=== PATIENT | female | born 1945 | race Caucasian/White ===

== ENCOUNTER 2019-01-12 16:34 | Inpatient (IN) | payer MEDICARE, OTHER, SELFPAY | END 2019-01-16 15:50 | disposition short-term general hospital (02) | DRG 355 | PROVIDERS: Admitting Provider Surgery; PCP Internal Medicine; Visit Provider Surgery | DX: K43.0 Incisional hernia with obstruction, without gangrene (principal); I10 Essential (primary) hypertension; Z85.528 Personal history of other malignant neoplasm of kidney; Z90.5 Acquired absence of kidney; E66.01 Morbid (severe) obesity due to excess calories; M79.3 Panniculitis, unspecified | CPT/HCPCS: 36415; 74018; 80048; 80307; 85014; 85018; 85027; 88300; 88302; 88312; 97110; 97116; 97161; 97165; 97530; 97535; A9270; C1781; C9290; J0131; J0171; J1100; J1170; J1650; J1741; J2250; J2370; J2405; J2704; J2710; J3010; J7050; J7120 ==

== ENCOUNTER → 2019-10-03 10:09 | Outpatient (REF) | payer MEDICARE, OTHER, SELFPAY | LOC: ANHLAB 10:09 | PROVIDERS: PCP Internal Medicine; Visit Provider Nurse Practitioner | DX: C44.41 Basal cell carcinoma of skin of scalp and neck (principal) | CPT/HCPCS: 88305; 88331 ==

== ENCOUNTER 2020-11-20 14:28 | Outpatient (CLI) | payer MEDICARE, OTHER, SELFPAY ==
--- NOTE | ~2020-11-20 | CT_ITS ---
EXAMINATION: CT abdomen pelvis wo con EXAM DATE: 11/20/2020 14:51 INDICATION: Follow-up kidney stone on outside CT. History of kidney cancer. TECHNIQUE: Spiral CT of the abdomen and pelvis was performed without contrast. Axial, coronal and sag ittal images were reviewed. The dose-length product (DLP) for this examination was 628.16 mGy-cm. T he exposure was tailored according to patient size (auto mA exposure control), and iterative reconstr uction (ASIR) was used as additional dose reduction technique. Comparison is made to prior examinatio n from 02/27/2014. FINDINGS: Surgical changes from left-sided nephrectomy. There is a 3 mm stone at the right ureteroves icular junction. No hydronephrosis at present. No other right calyceal stones. The uterus is unremark able. The bladder is unremarkable. The liver, spleen, adrenal gland and pancreas are unremarkable. There are cholecystectomy clips. There is no retroperitoneal or pelvic lymphadenopathy. There is mild scattered arteriosclerotic disease. There is left lower quadrant abdominal wall hernia containing nonobstructed small portion of descendi ng colon. Probable identification of a normal appendix. No pericecal inflammation. There is moderate sigmoid colonic diverticulosis. There is no adjacent inflammatory change to suggest diverticulitis. The stomach and small bowel are unremarkable. There is expected amount of colonic stool. No free i ntraperitoneal gas. The heart is normal in size. There are no pericardial or pleural effusions. T he lung bases are unremarkable. There are no osteoblastic or osteolytic lesions identified. There is moderate lumbar levoscoliosis, moderate to severe thoracolumbar spondylosis. Large bridging endplate osteophytes. IMPRESSION: 1. Distal right ureteral 3 mm stone. No hydronephrosis at present. 2. Left nephrectomy. 3. Colonic diverticulosis. 4. Abdominal wall hernia containing nonobstructed descending colon Reviewed, dictated and finalized at location A.
== END 2020-11-20 14:29 | disposition home or self-care (01) ==
PROVIDERS: PCP Internal Medicine; Visit Provider Urology
DX: Z85.528 Personal history of other malignant neoplasm of kidney (principal); N20.1 Calculus of ureter; Z90.5 Acquired absence of kidney; K57.90 Diverticulosis of intestine, part unspecified, without perforation or abscess without bleeding; K46.9 Unspecified abdominal hernia without obstruction or gangrene
CPT/HCPCS: 74176

== ENCOUNTER → 2021-10-01 12:59 | Outpatient (REF) | payer MEDICARE, OTHER, SELFPAY | LOC: ANHLAB 12:59 | PROVIDERS: PCP Internal Medicine; Visit Provider Nurse Practitioner | DX: C44.519 Basal cell carcinoma of skin of other part of trunk (principal) | CPT/HCPCS: 88305 ==

== ENCOUNTER 2022-07-17 08:00 | Outpatient (NON) | payer MEDICARE, OTHER, SELFPAY | END 2022-07-17 08:01 | disposition home or self-care (01) | PROVIDERS: PCP Internal Medicine; Visit Provider Nurse Practitioner | DX: C44.41 Basal cell carcinoma of skin of scalp and neck (principal) | CPT/HCPCS: 88305 ==

== ENCOUNTER 2022-09-08 13:06 | Outpatient (NON) | payer MEDICARE, OTHER, SELFPAY | END 2022-09-08 13:07 | disposition home or self-care (01) | PROVIDERS: PCP Internal Medicine; Visit Provider Nurse Practitioner | DX: C44.41 Basal cell carcinoma of skin of scalp and neck (principal) | CPT/HCPCS: 88305; 88331 ==

== ENCOUNTER 2023-08-06 17:29 | Outpatient (NON) | payer MEDICARE, OTHER, SELFPAY | END 2023-08-06 17:30 | disposition home or self-care (01) | LOC: ANHLAB 17:30 | PROVIDERS: PCP Internal Medicine; Visit Provider Nurse Practitioner | DX: C44.319 Basal cell carcinoma of skin of other parts of face (principal) | CPT/HCPCS: 88305 ==

== ENCOUNTER 2025-06-22 09:08 | Inpatient (IN) | payer MEDICARE, OTHER, SELFPAY ==
--- OUTSIDE RECORDS SUMMARY | 2025-06-21 03:08 | XMS_ITS ---
Author Organization [facility] Address [address] [place] [id number] Care Team Providers Care Insecticide Expert Name Role Phone DR. DARRYN CHOWDARY Primary Care Provider Allergies Allergen (clinical drug ingredient) Drug/Non Drug Allergy documented on EMR Reaction Allergy Type Onset Date Status ciprofloxacin Ciprofloxacin Unknown Drug Allergy Active dextromethorphan Dextromethorphan Unknown Drug Allergy Active hydrochlorothiazide hydroCHLOROthiazide Unknown Drug Aller gy Active Penicillin Unknown Drug Allergy Active Substance with sulfonamide structure and antibacterial mechanism of action (substance) Sulfa Antibiotics Unknown Drug Allergy Active Tape Unknown Allergy Active triamterene Triamterene Unknown Drug Allergy Act diya REASON FOR VISIT CHART PREP Medications Medication SIG (Take, Route, Frequency, Duration) Notes Start Date End Date Status Vitamin E 268 MG (400 UNIT) Capsule one tablet Orally daily Acti ve Gabapentin 100 MG Capsule 1 capsule at b edtime Orally twice a day Active Escitalopram Oxalate 5 MG Tablet 1 tablet Orally Once a day Active Aspirin Adult Low Dose 81 MG Tablet Delayed Release 1 tablet Orally Once a day Active oxyCODONE HCl 5 MG Tablet 1 Tablet PO IA N FOR PAIN Orally every 8 hours 06/01/2025 Active Montelukast Sodium 10 MG Tablet 1 tablet Orally Once a day Active Nystatin 657400 UNIT/GM Cream 1 application Externally Twice a day Active Lidocaine 4 % Patch 1 patch as needed Externally every 12 hours Active dilTIAZem HCl ER 360 MG Tablet Extended Release 24 Hour 1 tablet Orally Once a day Active Senna 8.6 MG Tablet 1 tablet Orally Once a day Active Vitamin C 500 MG Tablet Chewable 1 tablet Orally Once a day Active Trelegy Ellipta 100-62.5-25 MCG/ACT Aerosol Powder Breath Activated 1 puff Inhalation Once a day Active Refresh Relieva 0.5-0.9 % Solution as directed Ophthalmic 3 times a day Active MiraLax 17 GM/SCOOP Powder as directed Orally Active Macular Vitamin Benefit - Tablet as directed Orally Active Vitamin D3 25 MCG (1000 UT) Tablet 1 tablet Orally Once a day Active Acidophilus Probiotic Blend - Capsule as directed Orally Active Acetaminophen 500 MG Capsule 1 capsule as needed Orally every 6 hrs Active Ipratropium-Albuterol 0.5-2.5 (3) MG/3ML Solution 3 mL Inhalation 4 times a day; Duration: 5 days 05/06/2025 Active Sore Throat 6-10 MG Lozenge 1 lozenge as needed Mouth/Throat every 2 hrs Active Voltaren Arthritis Pain 1 % Gel as directed Externally Activ e Multiple Vitamins - Tablet 1 tablet Oral ly Once a day Active Cefepime HCl 100 GM Solution Reconstituted as directed Intravenous Active B Complex 1 - Tablet as directed Orally Active oxyBUTYnin Chloride 5 MG Tablet 1 tablet Orally Once a day Active Vancomycin HCl 1000 MG Solution Reconstituted amt: 1 gram IV; intravenous Once A Day Intravenous Active Social History Tobacco Use: Social History Observation Description Date Details (start date - stop date) Former Smoker NA - NA Social History Tobacco Use: Social Info Question Answer Notes Tobacco Control (Standard) Tobacco use: Former smoker Encounters Encounter Location Date Provider Diagnosis [facility] [address] [place] [address] 06/21/2025 DARRYN CHOWDARY Plan Of Treatment Next Appt Details Provider Name:Chanda Esquivel , 06/27/2025 07:15:00 AM, [address] [place] [address], [id number], Progress Notes * Christiana JASON ADOB: 3 (79 yo F)Acc No.[id number]:06/21/2025 Patient: Iain JONATHANChristiana RIOJAS :1945 A ge:79 Y S ex:Female Address:[address] [place] [id number] Subjective: * Chief Complaints: * C LEIGH PREP * Medical History: Unspecified atrial fibrillation Chronic obstructive pulmonary disease, unspecified Atherosclerosis of [place] coronary artery of [place] heart without angina pectoris Cognitive communication deficit Need for assistance with personal care Muscle weakness (generalized) Essential (primary) hypertension Unspecified abnormalities of gait and mobility Unspecified macular degeneration Weakness Unspecified fall, subsequent encounter Panniculitis, unspecified Anxiety disorder, unspecified Vitamin deficiency, unspecified Depression, unspecified Pain, unspecified Overactive bladder Constipation, unspecified Rash and other nonspecific skin eruption Vitamin D deficiency, unspecified * Surgical History: ankle fracture 09/08/2024 discission, 2nd cataract replacement total knee 2020 colonoscopy flx dx w/collj spec when pfrmd 09/16/2013 colonoscopy flx dx w/collj spec when pfrmd 09/16/2013 colonoscopy nephrectomy panniculectomy exc skin malig hernia repair kidney surgery replacement total knee back surgery cholecystectomy tonsillectomy Surgical History verified. * Family History: M other: congestive heart failure, pneumonia, diagnosed with Hypertension. B rother: Alzheimer's dementia, chronic obstructive pulmonary disease, heart surgery. S ister: Alzheimer's dementia, chronic obstructive pulmonary disease. F ather: diagnosed with Hypertension, Stroke. F amily History Verified.. * Social History: T obacco Use: T obacco Control (Standard) T obacco use: F ormer smoker. Social History Verified. * Medications: T akingVancomycin HCl 1000 MG Solution Reconstituted amt: 1 gram IV; intravenous Once A Day Intravenous oxyBUTYnin Chloride 5 MG Tablet 1 tablet Orally Once a day Voltaren Arthritis Pain 1 % Gel as directed Externally Multiple Vitamins - Tablet 1 tablet Orally Once a day Cefepime HCl 100 GM Solution Reconstituted as directed Intravenous B Complex 1 - Tablet as directed Orally Acidophilus Probiotic Blend - Capsule as directed Orally Acetaminophen 500 MG Capsule 1 capsule as needed Orally every 6 hrs Ipratropium-Albuterol 0.5-2.5 (3) MG/3ML Solution 3 mL Inhalation 4 times a day Sore Throat 6-10 MG Lozenge 1 lozenge as needed Mouth/Throat every 2 hrs Vitamin D3 25 MCG (1000 UT) Tablet 1 tablet Orally Once a day Vitamin C 500 MG Tablet Chewable 1 tablet Orally Once a day Trelegy Ellipta 100-62.5-25 MCG/ACT Aerosol Powder Breath Activated 1 puff Inhalation Once a day Refresh Relieva 0.5-0.9 % Solution as directed Ophthalmic 3 times a day MiraLax 17 GM/SCOOP Powder as directed Orally Macular Vitamin Benefit - Tablet as directed Orally Montelukast Sodium 10 MG Tablet 1 tablet Orally Once a day Nystatin 009282 UNIT/GM Cream 1 application Externally Twice a day Lidocaine 4 % Patch 1 patch as needed Externally every 12 hours dilTIAZem HCl ER 360 MG Tablet Extended Release 24 Hour 1 tablet Orally Once a day Senna 8.6 MG Tablet 1 tablet Orally Once a day Vitamin E 268 MG (400 UNIT) Capsule one tablet Orally daily Gabapentin 100 MG Capsule 1 capsule at bedtime Orally twice a day Escitalopram Oxalate 5 MG Tablet 1 tablet Orally Once a day Aspirin Adult Low Dose 81 MG Tablet Delayed Release 1 tablet Orally Once a day oxyCODONE HCl 5 MG Tablet 1 Tablet PO PRN FOR PAIN Orally every 8 hours Taking Vancomycin HCl 1000 MG Solution Reconstituted amt: 1 gram IV; intravenous Once A Day Intravenous Taking oxyBUTYnin Chloride 5 MG Tablet 1 tablet Orally Once a day Taking Voltaren Arthritis Pain 1 % Gel as directed Externally Taking Multiple Vitamins - Tablet 1 tablet Orally Once a day Taking Cefepime HCl 100 GM Solution Reconstituted as directed Intravenous Taking B Complex 1 - Tablet as directed Orally Taking Acidophilus Probiotic Blend - Capsule as directed Orally Taking Acetaminophen 500 MG Capsule 1 capsule as needed Orally every 6 hrs Taking Ipratropium-Albuterol 0.5-2.5 (3) MG/3ML Solution 3 mL Inhalation 4 times a day Taking Sore Throat 6-10 MG Lozenge 1 lozenge as needed Mouth/Throat every 2 hrs Taking Vitamin D3 25 MCG (1000 UT) Tablet 1 tablet Orally Once a day Taking Vitamin C 500 MG Tablet Chewable 1 tablet Orally Once a day Taking Trelegy Ellipta 100-62.5-25 MCG/ACT Aerosol Powder Breath Activated 1 puff Inhalation Once a day Taking Refresh Relieva 0.5-0.9 % Solution as directed Ophthalmic 3 times a day Taking MiraLax 17 GM/SCOOP Powder as directed Orally Taking Macular Vitamin Benefit - Tablet as directed Orally Taking Montelukast Sodium 10 MG Tablet 1 tablet Orally Once a day Taking Nystatin 979061 UNIT/GM Cream 1 application Externally Twice a day Taking Lidocaine 4 % Patch 1 patch as needed Externally every 12 hours Taking dilTIAZem HCl ER 360 MG Tablet Extended Release 24 Hour 1 tablet Orally Once a day Taking Senna 8.6 MG Tablet 1 tablet Orally Once a day Taking Vitamin E 268 MG (400 UNIT) Capsule one tablet Orally daily Taking Gabapentin 100 MG Capsule 1 capsule at bedtime Orally twice a day Taking Escitalopram Oxalate 5 MG Tablet 1 tablet Orally Once a day Taking Aspirin Adult Low Dose 81 MG Tablet Delayed Release 1 tablet Orally Once a day Taking oxyCODONE HCl 5 MG Tablet 1 Tablet PO PRN FOR PAIN Orally every 8 hours DiscontinuedVancomycin HCl 1.25 GM Solution Reconstituted as directed Intravenous Discontinued Vancomycin HCl 1.25 GM Solution Reconstituted as directed Intravenous * Allergies: C iprofloxacinDextromethorphanPenicillinSulfa AntibioticsTapehydroCHLOROthiazideTriamtereneyesAllergies Verified. * true * Date: Generated for Chang guerrero/Valerie/Rikki on: 08/22/2024 06:35 PM [employer]
[2025-06-22] VITALS (20 sets, daily range): BP systolic 152–185; BP diastolic 57–82; PULSE 58–74; RESP 16–22; TEMP 36.4–36.5; O2SAT 93–100; BMI 43.2
--- NOTE | ~2025-06-22 | XR_ITS ---
Examination: XR chest 1V portable Clinical History: confirm placement, existing line Comparison: None Technique: Portable AP Findings: Right PICC with catheter tip lower SVC. Heart size enlarged. Lungs clear. Small calcified granuloma right midlung. No acute bony abnormality. Scoliosis. IMPRESSION: 1. No acute cardiopulmonary findings given portable technique. 2. Right PICC catheter tip lower SVC. Reviewed, dictated and finalized at location R. SERVICES PROFESSIONAL
--- NOTE | ~2025-06-22 | XR_ITS ---
EXAMINATION: XR chest 1V portable DATE: 06/26/2025 10:31 INDICATION: Increasing shortness of breath and leukocytosis TECHNIQUE: frontal view of the chest was obtained. COMPARISON: Chest radiograph dated 06/22/2025 FINDINGS: Lung volumes are decreased. There are new airspace opacities in the bilateral lower lung zones, left greater than right which could represent atelectasis or pneumonia. Calcified nodule right midlung zone consistent with old granulomatous disease. No pneumothorax or definitive pleural effusion. Heart size is normal. Right upper extremity peripherally inserted central venous catheter (PICC) tip at the caudal superior vena cava. Cholecystectomy clips in the right upper quadrant. Severe left glenohumeral osteoarthritis. IMPRESSION: 1. Decreased lung volumes with opacities in bilateral lower lung zones, left greater than right which could represent atelectasis and/or pneumonia. Reviewed, dictated and finalized at location A. 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 Decreased lung volumes with opacities in bilateral lower lung zones, left gr eater than right which could represent atelectasis and/or pneumonia.
--- NOTE | ~2025-06-22 | MR_ITS ---
EXAMINATION: MR brain/brain stem wo/w con DATE: 06/23/2025 12:31 INDICATION: Altered mental status. Expressive aphasia. TECHNIQUE: Magnetic resonance imaging (MRI) of the brain and brainstem was performed without and with 18 mL Multihance intravenous contrast. Sequences included sagittal and axial T1-weighted SE, axial diffusion-weighted FS SE, axial 3D SWAN, axial T2-weighted FLAIR, and axial T2-weighted FSE. Postcontrast axial and coronal T1-weighted SE was obtained. Apparent diffusion coefficient (ADC) maps were created. COMPARISON: Head CT and CT angiogram dated 06/22/2025 FINDINGS: There are no areas of restricted diffusion to suggest acute infarction. No intracranial hemorrhage or abnormal intracranial mass lesion. 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 There are scattered areas of nonspecific increased T2-weighted signal intensity in the cerebral and pontine white matter, predominantly involving the deep and periventricular white matter. There are no intraparenchymal signal abnormalities seen on the other pulse sequences. Symmetric prominence of the sulci and subarachnoid spaces overlying the convexities consistent with mild age-appropriate diffuse cerebral volume loss. The ventricles are symmetric and normal in size. There are no abnormal extra- axial fluid collections. Flow voids are seen in the cerebral arteries on the T2- weighted sequences consistent with their expected patency. Changes of bilateral intraocular lens replacement. Visualized orbits and soft tissues are unremark able. There are no areas of abnormal enhancement on the post contrast images. IMPRESSION: 1. No acute intracranial process or abnormally enhancing brain lesions. 2. 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 3. Age-related changes including mild diffuse volume loss and moderate scattered pontine and periventricular predominant cerebral white matter T2 hyperintensity consistent with chronic small vessel ischemic disease. Reviewed, dictated and finalized at location A. [employer] IMPRESSION: 1. No acute intracranial process or abnormally enhancing brain lesions. 2. Small old lacunar infarct at the left side of the isthmus of the corpus call osum. 3. Age-related changes including mild diffuse volume loss and moderate scattere d pontine and periventricular predominant cerebral white matter T2 hyperintensi ty consistent with chronic small vessel ischemic disease.
--- NOTE | ~2025-06-22 | US_ITS ---
EXAM/PROCEDURE: US venous doppler UE BI HISTORY: redness, swelling COMPARISON: None available. TECHNIQUE: Evaluation of the deep veins performed by technologist with multiple static images to review. FINDINGS: No DVT seen. IMPRESSION: No DVT in either right or left upper cavity. Reviewed, dictated and finalized at location A. OR MAID
--- NOTE | ~2025-06-22 | CT_ITS ---
EXAM/PROCEDURE: CTA brain carotid HISTORY: ams; expressive aphasia COMPARISON: None available. TECHNIQUE: Contrast-enhanced CT angiography of the neck and brain performed. FINDINGS: Four-vessel left-sided arch present within the left vertebral artery arising directly from the arch. The common carotid arteries, and left vertebral artery are moderately tortuous in the proximal portions. The common carotid and cervical ICAs are patent. Vertebral arteries are patent throughout with right vertebral artery dominant. Moderately diffuse atherosclerotic disease present. Within the intracranial circulation, the distal cervical, petrous and cavernous portions of the ICAs are patent with [id number] disease and normal size. 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 No acute pelvic condition seen. The right supraclinoid ICA is slightly ectatic measuring up to 5.5 mm. Both anterior and middle cerebral arteries are patent bilaterally. 2 the basilar artery, and posterior cerebral arteries are patent. IMPRESSION: No critical stenosis or occlusion seen. 2. 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 Fusiform aneurysm could potentially have a similar appearance. Milder similar changes in the right supraclinoid carotid artery. No acute complication. 3. Four vessel left-sided arch with dominant right vertebral artery. Reviewed, dictated and finalized at location A. [employer] WORK IMPRESSION: No critical stenosis or occlusion seen. 2. Dilatation of the left supraclinoid carotid artery up to 8 mm likely associa kayla with dolichoectasia. Fusiform aneurysm could potentially have a similar thierry earance. Milder similar changes in the right supraclinoid carotid artery. No ac po complication. 3. Four vessel left-sided arch with dominant right vertebral artery.
--- NOTE | ~2025-06-22 | XR_ITS ---
EXAMINATION: XR chest 1V portable DATE: 06/28/2025 13:14 INDICATION: Pneumonia TECHNIQUE: frontal view of the chest was obtained. COMPARISON: Chest radiograph dated 06/26/2025 FINDINGS: Permanent in opacities at the bilateral lower lung zones essentially resolved on the right than with moderate residual retrocardiac opacity left lower lung zone which could represent improving atelectasis or pneumonia. No new airspace opacities, pulmonary edema, pleural effusion or pneumothorax. Heart size is normal. Prominent thoracic dextroscoliosis. Right upper extremity peripherally inserted central venous catheter (PICC) tip at the caudal superior vena cava. IMPRESSION: 1. Resolution of prior opacities in the right lower lung zone with significant decrease in now mild retrocardiac opacities in the left lower lung zone which could represent improving atelectasis or pneumonia. Reviewed, dictated and finalized at location A. 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 Resolution of prior opacities in the right lower lung zone with significant decrease in now mild retrocardiac opacities in the left lower lung zone which c ould represent improving atelectasis or pneumonia.
--- NOTE | 2025-06-22 09:41 | ECG_ITS ---
Test Date: 2025-06-22 09:49:23 Measurements Intervals [place] Rate: 65 P: 36 TX: 204 QRS: -6 QRSD: 79 T: 21 QT: 401 QTc: 417 Interpretive Statements SINUS RHYTHM MODERATE ST DEPRESSION [0.05+ mV ST DEPRESSION] No previous ECG available for comparison Electronically Signed On 06-22-2025 11:29:50 [employer]IVE SERVICE SPECIALIST by Navi Fallon M.D.
[2025-06-22 10:28] LABS: Add Urine Microscopic? YES; Appearance Urine Clear (Clear); Glucose Urine UA Negative (Negative); Leukocyte Esterase Ur Negative LEU/UL (Negative); Nitrate Urine Negative (Negative); Non Pathogenic Casts 0-2; Specific Grav Ur 1.012 (1.001-1.035)
--- NOTE | 2025-06-22 11:03 | ED.AMS ---
HPI - Altered Mental Status General Chief Complaint: Altered Mental Status Stated Complaint: ams Time Seen by Provider: 06/22/25 10:11 Source: patient and family (daughter ) History of Present Illness HPI narrative: Patient presents with concern for altered mental status. She is having trouble expressing herself per staff/family. Daughter notes on Thursday patient called her and was concerned she was hvaing a stroke. Went to the facility and daughter noted no focal deficits. However, over the past few days seems to know what she wants to say but either can't say it, often saying nonsensical things. Had been at [facility]). History of fall in August causing ankle fracture. Hardware felt to become infected and removed May 20. Currently on 2 IV antibiotics for osteomyelitis of right foot. Foot infection appears to be improving per daughter. States 1 antibiotic is vancomycin, believes the other starts with a C. Patient has a PICC line for this. Due to be on these antibiotics until 07/06. Had labs drawn on which showed that the vancomycin levels were high. No vancomycin yesterday or today. Concern for a possible urinary tract infection; a sample had been obtained at the facility. Related Data Home Medications ?Medication ?Instructions ?Recorded ?Confirmed ?Last Taken ?Type ascorbic acid (vitamin C) 500 mg 500 mg PO QPM 08/18/19 06/22/25 Unknown History capsule diltiazem HCl 360 mg 360 mg PO DAILY 08/18/19 06/22/25 Unknown History capsule,extended release 24 hr escitalopram oxalate 5 mg tablet 5 mg PO DAILY 08/18/19 06/22/25 Unknown History multivitamin 1 tablet PO DAILY 08/18/19 06/22/25 Unknown History L.acidophil,salivari-Bifido 1 cap PO BID 06/22/25 06/22/25 Unknown History bifidum-Strep thermoph 175 mg capsule (Acidophilus Probiotic Blend) acetaminophen 325 mg tablet 650 mg PO Q6H PRN pain 06/22/25 06/22/25 Unknown History aspirin 81 mg tablet,delayed 81 mg PO DAILY 06/22/25 06/22/25 Unknown History release (Adult Low Dose Aspirin) benzocaine 6 mg-menthol 10 mg 1 chastity mucous membrane Q2H PRN sore 06/22/25 06/22/25 Unknown History lozenges (Sore Throat (benzocaine throat with menthol)) carboxymethylcellulose 0.5 1 drp EACH EYE TID PRN dry eye(s) 06/22/25 06/22/25 Unknown History %-glycerin 0.9 % eye drops (Refresh Relieva) cefepime 2 gram solution for 2 g IV Q12H 06/22/25 06/22/25 Unknown History injection cholecalciferol (vitamin D3) 25 25 mcg PO .qod 06/22/25 06/22/25 Unknown History mcg (1,000 unit) capsule (Vitamin D3) diclofenac sodium 1 % topical gel 2 g topical QID PRN right 06/22/25 06/22/25 Unknown History (Arthritis Pain (diclofenac)) foot/ankle pain fluticasone fur. 100 mcg-umeclid 1 inh inhalation DAILY 06/22/25 06/22/25 Unknown History 62.5 mcg-vilant 25 mcg inhalat.powder (Trelegy Ellipta) gabapentin 100 mg capsule 100 mg PO .q12hr 06/22/25 06/22/25 Unknown History ipratropium 0.5 mg-albuterol 3 mg 3 ml inhalation QID PRN cough, 06/22/25 06/22/25 Unknown History (2.5 mg base)/3 mL nebulization shortness of breath, or wheezing soln lidocaine 4 % topical patch 1 patch topical DAILY PRN pain 06/22/25 06/22/25 Unknown History montelukast 10 mg tablet 10 mg PO QPM 06/22/25 06/22/25 Unknown History edwvezur-lxjmawhq-bqyhp acid 500 1 tablet PO QPM 06/22/25 06/22/25 Unknown History mcg-lutein 5 mg-zeaxanth 1 mg tablet (Macular Vitamin) nystatin 100,000 unit/gram topical 1 applic topical BID PRN skin fold 06/22/25 06/22/25 Unknown History cream maceration oxybutynin chloride 5 mg tablet 5 mg PO BID 06/22/25 06/22/25 Unknown History oxycodone 5 mg tablet 5 mg PO Q8H PRN pain (scale score 06/22/25 06/22/25 Unknown History 7-10) polyethylene glycol 3350 17 17 g PO .qod 06/22/25 06/22/25 Unknown History gram/dose oral powder (Miralax) sennosides 8.6 mg-docusate sodium 1 tab-cap PO DAILY 06/22/25 06/22/25 Unknown History 50 mg capsule (Senna Plus) vancomycin 1,000 mg intravenous 1 g IV DAILY 06/22/25 06/22/25 Unknown History injection vitamin B complex-folic acid 0.4 1 tablet PO DAILY 06/22/25 06/22/25 Unknown History mg tablet (B Complex 1 (with folic acid)) vitamin E 268 mg (400 unit) capsule 268 mg PO QPM 06/22/25 06/22/25 Unknown History Allergies Allergy/AdvReac Type Severity Reaction Status Date / Time ciprofloxacin Allergy Unknown Other Verified 06/22/25 17:06 Penicillins Allergy Unknown Hives Verified 06/22/25 17:06 Sulfa (Sulfonamide Allergy Unknown Hives Verified 06/22/25 17:06 Antibiotics) [facility] Past Medical History Medical History (Updated 06/22/25 @ 22:38 by Irina Gutierrez APRN) Chronic obstructive pulmonary disease, unspecified Atrial fibrillation Other acute osteomyelitis, right ankle and foot History of skin cancer Cancer of kidney 2015 - left Surgical History Surgical History History of tonsillectomy History of back surgery History of kidney removal History of hernia repair History of knee replacement left - 2017 History of cholecystectomy Family History Family History Sibling Hypertension Cerebrovascular accident Family history of Alzheimer's disease Family history of diabetes mellitus in first degree relative Family history of heart disease in male family member before age 55 Acute myocardial infarction Father Cerebrovascular accident Social History Social History Social History: Code Status per POLST signed 04/13/25: Full Code (yes CPR) Smoking status: Former smoker Tobacco type: cigarettes Alcohol intake: never Substance use: never Lack of Transportation: No Lack of Food: Never True Current Housing: I Have Housing Concerned About Future Housing: No Difficulty Paying Gas/Electric Bills: No Difficulty Paying for Meds: No Currently Unemployed: No Education: High School Diploma/GED Difficulty w/ Childcare or Family Care: No Additional living arrangements comments: [facility] [place] 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 HEAD: Normocephalic, atraumatic. EYES: Non injected, non icteric ENT: Nares clear, no rhinorrhea or epistaxis. Gross auditory acuity intact. NECK: Supple. No meningismus. CHEST: Speaking in full sentences. No respiratory distress. HEART: Regular rate and rhythm. . ABDOMEN: Soft, nondistended. No rigidity or guarding. Not peritoneal EXTREMITIES: Normal range of motion. No drift bilateral upper extremities; mild drift bilateral lower extremities. SKIN: Warm, dry. Well healing surgical scar right lower extremity. NEURO: Alert and oriented. Tries to answering questions but has expressive aphasia. Following commands. No dysarthria. Normal FNF, without ataxia. PSYCH: Normal mood and affect. Course Vital Signs Vital signs: Vital Signs Temperature 97.7 F 06/22/25 09:10 Pulse Rate 74 06/22/25 09:10 Respiratory Rate 20 06/22/25 09:10 Blood Pressure 159/74 H 06/22/25 09:10 Pulse Oximetry 98 06/22/25 09:10 Oxygen Delivery Room Air 06/22/25 09:10 Temperature 97.4 F L 06/24/25 05:12 Pulse Rate 66 06/24/25 05:12 Respiratory Rate 16 06/24/25 05:12 Blood Pressure 175/82 H 06/24/25 05:42 Pulse Oximetry 97 06/24/25 09:33 Oxygen Delivery Room Air 06/24/25 09:33 MDM - Altered Mental Status MDM Narrative Medical decision making narrative: Patient presents with difficulty expressing herself. In the emergency department she is afebrile with vital signs notable for hypertension. Expressive aphasia on exam. Last known well is Thursday. The patient is protecting their airway which is patent. An IV is established by nursing staff blood work sent to the lab for evaluation. An EKG will be performed. NIHSS was evaluated per below. NIHSS Level Of consciousness: 0 Month and age: 2 Follows commands: 0 Gaze palsy: 0 Visual tierney: 0 Facial palsy:0 Left arm motor drift:0 Right arm motor drift:0 Left leg motor drift:1 Right leg motor drift:1 Limb ataxia: 0 Sensation: 0 Aphasia: 2 Dysarthria: 0 Extinction: 0 Total: 6 DIFFERENTIAL DIAGNOSES Considered Stroke (CVA / TIA) as well as mimics including but not limited to: migraines, hypoglycemia, seizures/Bob's paralysis, sepsis/severe infections in patients with prior strokes (e.g. recrudescence), syncope, brain masses, transient global amnesia, panic attack/hyperventilation, and conversion disorders. Also strongly suspect medication side effect / infection (e.g. UTI, bloodstreem infection). Patient has comorbidities that complexity management. Namely, currently on antibiotics via PICC for osteomyelitis in R LE. Labs: No leukocytosis. Patient has a normocytic anemia and thrombocytopenia both of which have been previously appreciated and are stable. Urinalysis with proteinuria however without signs of infection. Patient is on vancomycin as well as cefepime for her osteomyelitis. Although the vancomycin is not associated with aphasia, cefepime has certainly been implicated with neurotoxicity. For review of her medication list sent from facility, she is not anticoagulation although past medical history list in this documentation does list unspecified atrial fibrillation. Discussed with marionette performer neurologist Dr Jimenez. GIven the concern this could be a stroke, recommends dual antiplatelet and statin in addition to MRI. No pacemaker as contraindication to MRI. Ordered ASA and clopidogrel for today but will defer further orders including statin. Also ordered lipid panel and HA1c for further risk stratification. Discussed patient with on-call hospitalist CAROLYN Dent. Given symptoms since Thursday, will opt for med surg with telemetry rather than IMU. Differential Diagnosis Differential diagnosis: Likely altered mental status, delirium, dementia, hypoglycemia, hyponatremia, subarachnoid hemorrhage, sepsis and other (bloodstream infection; medication side effect; CVA) Lab Data Attestation: I reviewed the patient's lab results. 06/23/25 05:08 06/24/25 05:23 Labs: Lab Results 06/22/25 06/22/25 06/22/25 Range/Units 09:59 12:01 12:03 WBC 4.8 (4.5-10.0) K/mm3 RBC 3.94 L (4.2-5.4) M/mm3 Hgb 11.4 L (12.0-15.0) g/dL Hct 36.7 L (37.0-47.0) % MCV 93.1 (80-100) fl MCH 28.9 (26-34) pg MCHC 31.1 L (32-36) g/dl RDW 14.6 H (11.5-14.5) % Plt Count 101 L (150-375) k/mm3 MPV 11.7 H (7.4-10.4) fl Immature Gran % (Auto) 0.6 H (0-0.5) % Neut % (Auto) 52.4 (45.5-73.1) % Lymph % (Auto) 26.4 (18.3-44.2) % [place] % (Auto) 19.0 H (2.6-8.5) % Eos % (Auto) 1.4 (0-4.4) % Baso % (Auto) 0.2 (0.2-1.2) % Lymph # (Auto) 1.28 (0.9-3.2) K/mm3 [place] # (Auto) 0.9 H (0.1-0.6) K/mm3 Eos # (Auto) 0.1 (0-0.3) K/mm3 Baso # (Auto) 0.0 (0.0-0.1) K/mm3 Abs Immat Gran (auto) 0.03 (0.00-0.031) K/mm3 Absolute Neuts (auto) 2.5 (1.3-6.7) K/mm3 Absolute Nucleated RBC 0.000 (0.0-0.012) K/mm3 Nucleated RBC % 0.0 (0.0-0.2) % % Immature Plt Fraction 4.3 (0.9-11.2) % PT 14.0 (11.1-14.7) Seconds INR 1.1 APTT 27.3 (22.3-36.8) Seconds Sodium 140 (137-145) mmol/L Potassium 3.5 (3.4-5.0) mmol/L Chloride 106 (98-107) mmol/L Carbon Dioxide 25 (22-30) mmol/L Anion Gap 9 (4-12) mmol/L BUN 21 H (7-17) mg/dL Creatinine 0.99 (0.7-1.0) mg/dL Estim Creat Clear Calc Not Reportable Estimated GFR 54 L (59 - ) Glucose 97 (65-110) mg/dL Hemoglobin A1c 4.8 (<5.7) % Lactic Acid 0.7 (0.7-2.0) mmol/L Calcium 9.6 (8.4-10.2) mg/dL Total Bilirubin 0.6 (0.2-1.3) mg/dL AST 22 (14-36) U/L ALT 16 (6-35) U/L Alkaline Phosphatase 103 (38-126) U/L Troponin I < 0.012 (0.000-0.034) ng/mL Total Protein 7.7 (6.3-8.2) g/dL Albumin 4.2 (3.5-5.1) g/dL Triglycerides 96 (<150) mg/dL Cholesterol 167 (0-200) mg/dL LDL Cholesterol Direct 88 mg/dL HDL Direct 38 mg/dL Vitamin B12 754.0 (239-931) pg/mL Methylmalonic Acid Vitamin D 25-Hydroxy 64.7 ng/mL Folate > 20.0 H (2.76->20) ng/mL TSH 2.130 (0.465-4.680) uIU/mL Urine Color Yellow (Yellow) Urine Appearance Clear (Clear) Urine pH 6.0 (5.0-9.0) Ur Specific [place] 1.012 (1.001-1.035) Urine Protein 2+ H (Negative) mg/dL Urine Glucose (UA) Negative (Negative) mg/dL Urine Ketones Negative (Negative) mg/dL Ur Blood (Man) Trace (Negative) Urine Nitrate Negative (Negative) Urine Bilirubin Negative (Negative) Urine Urobilinogen 0.2 (<2.0) mg/dL Leukocyte Esterase Rfl Negative (Negative) PRUDENCIO/UL Urine RBC 0-2 (0-2) /hpf Urine WBC 0-5 (0-3) /hpf Ur Squamous Epith Cells None seen (Few) /hpf Urine Bacteria None seen /hpf Urine Casts 0-2 Vancomycin Trough 15.7 (10.0-20.0) ug/mL Random Vancomycin (10-20) ug/mL 06/22/25 06/23/25 Range/Units 22:05 05:08 WBC 4.0 L (4.5-10.0) K/mm3 RBC 3.70 L (4.2-5.4) M/mm3 Hgb 10.9 L (12.0-15.0) g/dL Hct 34.2 L (37.0-47.0) % MCV 92.4 (80-100) fl MCH 29.5 (26-34) pg MCHC 31.9 L (32-36) g/dl RDW 14.6 H (11.5-14.5) % Plt Count 93 L (150-375) k/mm3 MPV 10.9 H (7.4-10.4) fl Immature Gran % (Auto) 0.5 (0-0.5) % Neut % (Auto) 43.5 L (45.5-73.1) % Lymph % (Auto) 30.4 (18.3-44.2) % [place] % (Auto) 23.7 H (2.6-8.5) % Eos % (Auto) 1.7 (0-4.4) % Baso % (Auto) 0.2 (0.2-1.2) % Lymph # (Auto) 1.22 (0.9-3.2) K/mm3 [place] # (Auto) 1.0 H (0.1-0.6) K/mm3 Eos # (Auto) 0.1 (0-0.3) K/mm3 Baso # (Auto) 0.0 (0.0-0.1) K/mm3 Abs Immat Gran (auto) 0.02 (0.00-0.031) K/mm3 Absolute Neuts (auto) 1.7 (1.3-6.7) K/mm3 Absolute Nucleated RBC 0.000 (0.0-0.012) K/mm3 Nucleated RBC % 0.0 (0.0-0.2) % % Immature Plt Fraction 4.6 (0.9-11.2) % PT (11.1-14.7) Seconds INR APTT (22.3-36.8) Seconds Sodium 141 (137-145) mmol/L Potassium 3.4 (3.4-5.0) mmol/L Chloride 106 (98-107) mmol/L Carbon Dioxide 26 (22-30) mmol/L Anion Gap 9 (4-12) mmol/L BUN 21 H (7-17) mg/dL Creatinine 0.92 (0.7-1.0) mg/dL Estim Creat Clear Calc Not Reportable Estimated GFR 59 (59 - ) Glucose 93 (65-110) mg/dL Hemoglobin A1c (<5.7) % Lactic Acid (0.7-2.0) mmol/L Calcium 8.9 (8.4-10.2) mg/dL Total Bilirubin 0.5 (0.2-1.3) mg/dL AST 18 (14-36) U/L ALT 14 (6-35) U/L Alkaline Phosphatase 95 (38-126) U/L Troponin I (0.000-0.034) ng/mL Total Protein 7.0 (6.3-8.2) g/dL Albumin 3.9 (3.5-5.1) g/dL Triglycerides (<150) mg/dL Cholesterol (0-200) mg/dL LDL Cholesterol Direct mg/dL HDL Direct mg/dL Vitamin B12 (239-931) pg/mL Methylmalonic Acid Pending Vitamin D 25-Hydroxy ng/mL Folate (2.76->20) ng/mL TSH (0.465-4.680) uIU/mL Urine Color (Yellow) Urine Appearance (Clear) Urine pH (5.0-9.0) Ur Specific [place] (1.001-1.035) Urine Protein (Negative) mg/dL Urine Glucose (UA) (Negative) mg/dL Urine Ketones (Negative) mg/dL Ur Blood (Man) (Negative) Urine Nitrate (Negative) Urine Bilirubin (Negative) Urine Urobilinogen (<2.0) mg/dL Leukocyte Esterase Rfl (Negative) PRUDENCIO/UL Urine RBC (0-2) /hpf Urine WBC (0-3) /hpf Ur Squamous Epith Cells (Few) /hpf Urine Bacteria /hpf Urine Casts Vancomycin Trough (10.0-20.0) ug/mL Random Vancomycin 12.7 (10-20) ug/mL Imaging Data Radiologist's impression: Impressions Chest X-Ray 06/22/25 10:44 IMPRESSION: 1. No acute cardiopulmonary findings given portable technique. 2. Right PICC catheter tip lower SVC. Head/Neck CTA 06/22/25 13:05 IMPRESSION: No critical stenosis or occlusion seen. 2. 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 Fusiform aneurysm could potentially have a similar appearance. Milder similar changes in the right supraclinoid carotid artery. No acute complication. 3. Four vessel left-sided arch with dominant right vertebral artery. ECG Data EKG #1: Attestation: I personally reviewed and interpreted this ECG as follows: ECG completion date: 06/22/25 ECG completion time: 09:49 Interpretation: Normal sinus rhythm at a rate of 65 beats per minute. MN interval slightly prolonged at 204 milliseconds consistent with a first-degree AV block. QRS 79. QT/QTC 401/417. Good R-wave progression across the precordial leads. T-wave inversion in 3 but upright in contiguous inferior leads 2 and AVF. No other T-wave inversions. I do not appreciate the ST depressions that are noted on the pre populated algorithm. Discharge Plan Discharge Clinical Impression: Expressive aphasia, Anemia, Thrombocytopenia, Proteinuria Patient Disposition: Still a Patient Condition: Stable Time of Disposition: 14:27
[2025-06-22] MEDS: ALTEPLASE 2 MG VIAL (CATHFLO) IV PUSH (12:05)
[2025-06-22 12:18] LABS: Hematocrit 36.7 % (37.0-47.0); Hemoglobin 11.4 g/dL (12.0-15.0); Immature Granulocyte Percent A 0.6 % (0-0.5); Immature Platelet Fraction Pct 4.3 % (0.9-11.2); Lymphocytes Absolute Auto 1.28 K/mm3 (0.9-3.2); Mean Corpuscular HGB Conc 31.1 g/dl (32-36); Mean Corpuscular Hemoglobin 28.9 pg (26-34); Mean Corpuscular Volume 93.1 fl (80-100); Nucleated Red Blood Cells Absolute Auto 0.000 K/mm3 (0.0-0.012); Nucleated Red Blood Cells Perc 0.0 % (0.0-0.2); Platelet Count Result 101 k/mm3 (150-375); Red Blood Count 3.94 M/mm3 (4.2-5.4); White Blood Count 4.8 K/mm3 (4.5-10.0)
[2025-06-22 12:29] LABS: INR 1.1; Prothrombin Time 14.0 Seconds (11.1-14.7)
[2025-06-22 12:30] LABS: Partial Thromboplastin Time 27.3 Seconds (22.3-36.8)
[2025-06-22 12:33] LABS: Alanine Aminotransferase 16 U/L (6-35); Albumin Level 4.2 g/dL (3.5-5.1); Alkaline Phosphatase 103 U/L (38-126); Anion Gap 9 mmol/L (4-12); Aspartate Amino Transferase 22 U/L (14-36); Bilirubin,Total 0.6 mg/dL (0.2-1.3); Blood Urea Nitrogen 21 mg/dL (7-17); Calcium 9.6 mg/dL (8.4-10.2); Carbon Dioxide 25 mmol/L (22-30); Chloride 106 mmol/L (98-107); Estimated Glomerular Filt Rate 54; Glucose 97 mg/dL (65-110); Potassium 3.5 mmol/L (3.4-5.0); Sodium 140 mmol/L (137-145); Total Protein 7.7 g/dL (6.3-8.2)
[2025-06-22 13:11] LABS: Troponin I < 0.012 ng/mL (0.000-0.034)
--- NOTE | 2025-06-22 14:26 | PM.IMHP ---
H&P: HPI History of Present Illness Date/Time: 06/22/25 14:26 Chief Complaint: Expressive aphasia Narrative: 79-year-old female with past medical history of COPD, AFib, renal cancer status post left nephrectomy presents to the ED from [facility] on 06/22/2025 with complaints of expressive aphasia. Family and patient states symptoms started on 06/18 with not feeling right. Staff at the facility report patient had elevated ?vanc levels? and has had expressive aphasia since yesterday, if not since the weekend. They are unsure of the date of the vanc trough results. Patient is A&Ox4. Denies headache, vision changes, recent falls. Patient has noticeable expressive aphasia but is able to get the correct word out if given time. Sons are at bedside. Patient is currently at [facility] while receiving her antibiotics and for rehab. The plan is for her to move into an assisted living facility once she completes rehab. Initial vital signs 159/74, HR 74, respirations 20, afebrile and 98% on room air. Labs reveal normocytic anemia and thrombocytopenia which have both been documented in the past. BUN 21, creatinine 0.99, GFR 54. Troponin 0.012. UA with 2+ protein. Chest x-ray with no acute cardiopulmonary findings, right PICC catheter tip lower SVC. Head neck CTA with no critical stenosis or occlusion seen. Dilation of left supraclinoid carotid artery up to 8 mm likely associated with dolichoectasia-fusiform aneurysm could potentially have similar appearance. Milder similar changes in the right supraclinoid carotid artery. Four-vessel left-sided arch with dominant right vertebral artery. Review of Systems Review of Systems: All systems reviewed & are unremarkable except as noted in HPI and below PMFSH Past Medical History Medical History (Updated 06/22/25 @ 22:38 by Irina Gutierrez APRN) Chronic obstructive pulmonary disease, unspecified Atrial fibrillation Other acute osteomyelitis, right ankle and foot History of skin cancer Cancer of kidney 2015 - left Surgical History Surgical History History of tonsillectomy History of back surgery History of kidney removal History of hernia repair History of knee replacement left - 2017 History of cholecystectomy Family History Family History Sibling Hypertension Cerebrovascular accident Family history of Alzheimer's disease Family history of diabetes mellitus in first degree relative Family history of heart disease in male family member before age 55 Acute myocardial infarction Father Cerebrovascular accident Social History Social History Social History: Code Status per POLST signed 04/13/25: Full Code (yes CPR) Tobacco type: cigarettes Alcohol intake: never Substance use: never Lack of Transportation: No Lack of Food: Never True Current Housing: I Have Housing Concerned About Future Housing: No Difficulty Paying Gas/Electric Bills: No Difficulty Paying for Meds: No Currently Unemployed: No Education: High School Diploma/GED Difficulty w/ Childcare or Family Care: No Additional living arrangements comments: [facility] [place] Occupation/Education: retired 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 Spiritual care concerns: No Meds Home Medications and Allergies Home Medications ?Medication ?Instructions ?Recorded ?Confirmed ?Type ascorbic acid (vitamin C) 500 mg 500 mg PO QPM 08/18/19 06/22/25 History capsule diltiazem HCl 360 mg 360 mg PO DAILY 08/18/19 06/22/25 History capsule,extended release 24 hr escitalopram oxalate 5 mg tablet 5 mg PO DAILY 08/18/19 06/22/25 History multivitamin 1 tablet PO DAILY 08/18/19 06/22/25 History L.acidophil,salivari-Bifido 1 cap PO BID 06/22/25 06/22/25 History bifidum-Strep thermoph 175 mg capsule (Acidophilus Probiotic Blend) acetaminophen 325 mg tablet 650 mg PO Q6H PRN pain 06/22/25 06/22/25 History aspirin 81 mg tablet,delayed 81 mg PO DAILY 06/22/25 06/22/25 History release (Adult Low Dose Aspirin) benzocaine 6 mg-menthol 10 mg 1 chastity mucous membrane Q2H PRN sore 06/22/25 06/22/25 History lozenges (Sore Throat (benzocaine throat with menthol)) carboxymethylcellulose 0.5 1 drp EACH EYE TID PRN dry eye(s) 06/22/25 06/22/25 History %-glycerin 0.9 % eye drops (Refresh Relieva) cefepime 2 gram solution for 2 g IV Q12H 06/22/25 06/22/25 History injection cholecalciferol (vitamin D3) 25 25 mcg PO .qod 06/22/25 06/22/25 History mcg (1,000 unit) capsule (Vitamin D3) diclofenac sodium 1 % topical gel 2 g topical QID PRN right 06/22/25 06/22/25 History (Arthritis Pain (diclofenac)) foot/ankle pain fluticasone fur. 100 mcg-umeclid 1 inh inhalation DAILY 06/22/25 06/22/25 History 62.5 mcg-vilant 25 mcg inhalat.powder (Trelegy Ellipta) gabapentin 100 mg capsule 100 mg PO .q12hr 06/22/25 06/22/25 History ipratropium 0.5 mg-albuterol 3 mg 3 ml inhalation QID PRN cough, 06/22/25 06/22/25 History (2.5 mg base)/3 mL nebulization shortness of breath, or wheezing soln lidocaine 4 % topical patch 1 patch topical DAILY PRN pain 06/22/25 06/22/25 History montelukast 10 mg tablet 10 mg PO QPM 06/22/25 06/22/25 History lrshetgz-rztzpxoj-oswat acid 500 1 tablet PO QPM 06/22/25 06/22/25 History mcg-lutein 5 mg-zeaxanth 1 mg tablet (Macular Vitamin) nystatin 100,000 unit/gram topical 1 applic topical BID PRN skin fold 06/22/25 06/22/25 History cream maceration oxybutynin chloride 5 mg tablet 5 mg PO BID 06/22/25 06/22/25 History oxycodone 5 mg tablet 5 mg PO Q8H PRN pain (scale score 06/22/25 06/22/25 History 7-10) polyethylene glycol 3350 17 17 g PO .qod 06/22/25 06/22/25 History gram/dose oral powder (Miralax) sennosides 8.6 mg-docusate sodium 1 tab-cap PO DAILY 06/22/25 06/22/25 History 50 mg capsule (Senna Plus) vancomycin 1,000 mg intravenous 1 g IV DAILY 06/22/25 06/22/25 History injection vitamin B complex-folic acid 0.4 1 tablet PO DAILY 06/22/25 06/22/25 History mg tablet (B Complex 1 (with folic acid)) vitamin E 268 mg (400 unit) capsule 268 mg PO QPM 06/22/25 06/22/25 History Allergies Allergy/AdvReac Type Severity Reaction Status Date / Time ciprofloxacin Allergy Unknown Other Verified 06/22/25 17:06 Penicillins Allergy Unknown Hives Verified 06/22/25 17:06 Sulfa (Sulfonamide Allergy Unknown Hives Verified 06/22/25 17:06 Antibiotics) Vital Signs Vital Signs - 24 hr 06/22/25 09:10 06/22/25 09:10 06/22/25 09:31 Temperature 97.7 F Pulse Rate 74 68 Respiratory Rate 20 20 Blood Pressure 159/74 H 169/73 H Pulse Oximetry 98 96 Oxygen Delivery Room Air Room Air 06/22/25 09:47 06/22/25 09:58 06/22/25 10:01 Temperature Pulse Rate 66 65 66 Respiratory Rate 20 18 20 Blood Pressure 165/62 H 165/62 H 175/80 H Pulse Oximetry 96 96 95 Oxygen Delivery 06/22/25 10:30 06/22/25 10:31 06/22/25 11:01 Temperature Pulse Rate 62 63 67 Respiratory Rate 20 20 20 Blood Pressure 171/80 H 179/80 H 175/81 H Pulse Oximetry 94 93 93 Oxygen Delivery 06/22/25 11:16 06/22/25 11:27 06/22/25 11:46 Temperature Pulse Rate 72 67 69 Respiratory Rate 20 20 20 Blood Pressure 162/82 H 162/82 H 157/79 H Pulse Oximetry 97 100 100 Oxygen Delivery 06/22/25 11:47 06/22/25 13:48 Temperature Pulse Rate 66 60 Respiratory Rate 21 H 20 Blood Pressure 157/79 H 167/76 H Pulse Oximetry 98 97 Oxygen Delivery Exam Narrative: GENERAL: non-toxic appearing, in no acute distress. HEAD: Normocephalic, atraumatic. EYES: PERRLA. Conjunctivae clear. NOSE: Normal no drainage. THROAT: Pharynx clear, no exudate. NECK: Trachea midline. No adenopathy, no masses. RESPIRATORY: Airway patent, respirations nonlabored. CTA. CARDIOVASCULAR: Regular rate and rhythm BREASTS: Defer GASTROINTESTINAL: Abdomen is soft and nontender. No organomegaly. Bowel sounds normal in all quadrants. GENITOURINARY: Defer MUSCULOSKELETAL: Moves all extremities. Old surgical incision to right medial ankle with Steri-Strips intact. No redness, swelling, or drainage to wound. SKIN: Warm, dry, normal color. NEURO: A&O X4. Expressive aphasia with periodically incorrect words. Patient is able to say the correct word when given time PSYCHIATRIC: Normal interaction H&P: Results Labs Labs: Short CBC 06/22/25 Range/Units 12:03 WBC 4.8 (4.5-10.0) K/mm3 Hgb 11.4 L (12.0-15.0) g/dL Hct 36.7 L (37.0-47.0) % Plt Count 101 L (150-375) k/mm3 BMP 06/22/25 12:03 Sodium 140 Potassium 3.5 Chloride 106 Carbon Dioxide 25 BUN 21 H Creatinine 0.99 Glucose 97 Calcium 9.6 Cardiac Enzymes 06/22/25 Range/Units 12:03 Troponin I < 0.012 (0.000-0.034) ng/mL Liver Function 06/22/25 Range/Units 12:03 Total Bilirubin 0.6 (0.2-1.3) mg/dL AST 22 (14-36) U/L ALT 16 (6-35) U/L Alkaline Phosphatase 103 (38-126) U/L Albumin 4.2 (3.5-5.1) g/dL Urine 06/22/25 Range/Units 09:59 Urine Color Yellow (Yellow) Urine Appearance Clear (Clear) Urine pH 6.0 (5.0-9.0) Ur Specific [place] 1.012 (1.001-1.035) Urine Protein 2+ H (Negative) mg/dL Urine Glucose (UA) Negative (Negative) mg/dL Assessment and Plan Assessment and plan (1) Expressive aphasia: Code(s): R47.01 - Aphasia Status: Acute Assessment and Plan: Patient with history of AFib and no AC complains of expressive aphasia. Family and patient states symptoms started on 06/18. Chest x-ray with no acute cardiopulmonary findings, PICC line in place and okay to use. Head neck CTA with no critical stenosis or occlusion seen. Dilation of left supraclinoid carotid artery up to 8 mm likely associated with dolichoectasia-fusiform aneurysm could potentially have similar appearance. Milder similar changes in the right supraclinoid carotid artery. Four-vessel left-sided arch with dominant right vertebral artery. Low suspicion for cefepime neurotoxicity due to normal renal function. - admission for observation and telemetry - not candidate for thrombolytics due to timeframe - neurology consulted - brain MRI w/wo ordered - echo w/Bubble ordered - neuro checks Q4 - heart healthy diet - speech eval - monitor daily labs, lipid panel, A1C -ambulate with assistance -triglycerides 96, cholesterol 167, LDL cholesterol direct 88, HDL direct 38 - start Plavix 75 mg PO -aspirin 324 mg given in ED--> holding in setting of thrombocytopenia - consider 30 day event monitoring at discharge (2) Other acute osteomyelitis, right ankle and foot: Code(s): M86.171 - Other acute osteomyelitis, right ankle and foot Status: Chronic Assessment and Plan: Patient fell and broke ankle which was repaired with hardware. The hardware ED initially became infected and progressed to osteomyelitis, requiring removal. Finishing IV vancomycin and cefepime on 07/06. -PICC line in place from outside facility. Imaging shows it is in place. -continue IV vanc per pharmacy dosing and cefepime Plan Diet: Regular GI prophylaxis: NA DVT prophylaxis: SCDs lines/drains: PIV Fluids: NA Code status: Full Quality VTE Prophylaxis VTE prophylaxis: mechanical ordered Hospitalist MIPS Advance Care Plan I have confirmed that the patient's Advanced Care Plan is present, code status is documented, or surrogate decision maker is listed in patient medical record.: Yes Medication Reconciliation I have utilized all available resources to obtain, update and review the patients current medications (includes all prescriptions, OTC, herbals, cannabis, and nutritional supplements).: Yes
[2025-06-22] MEDS: CLOPIDOGREL BISULFATE 75 MG TABLET PO (14:45)
[2025-06-22] MEDS: ASPIRIN 81 MG CHEWABLE TABLET 324 MG PO (14:45)
[2025-06-22 14:54] LABS: Hemoglobin A1C 4.8 % (<5.7)
[2025-06-22 14:54] LABS: Cholesterol 167 mg/dL (0-200); HDL Direct 38 mg/dL; Triglycerides 96 mg/dL (<150)
--- NOTE | 2025-06-22 15:35 | ADMGEN ---
This patient, Christiana Jason, was admitted to 2 Medical Room 240-. Patient/family oriented to hospital policies and general routines including ID bracelet, bed and alarms, visiting hours, pain management, procedures, bathroom and other care routines, personal items, smoking policy, room service/diet, and visiting hours. Information on how to activate the Rapid Response Team has been discussed. Patient/Family are encouraged to report perceived risks to care and to ask questions if they do not understand what they are told or what they should do.
--- NOTE | 2025-06-22 17:39 | WPDNEURCNPN ---
Assessment and Plan Assessment and plan (1) Expressive aphasia: Code(s): R47.01 - Aphasia Status: Acute (2) Thrombocytopenia: Code(s): D69.6 - Thrombocytopenia, unspecified Status: Acute Plan Patient may have mild cognitive impairment in addition to possible mild expressive aphasia and a may require some follow-up in this regard. Her platelet count is 101K. WBC count was normal hemoglobin was low at 11.4. Liver enzymes and renal function appears normal. LDL was 88 however this was a random is a level drawn today. Patient is on IV antibiotics until the of this month. She has had recurrent urinary tract infection and some problem with the right foot or ankle. She does have mild tremor of the outstretched hand. These appear to be essential type tremor. I do not see any evidence for Parkinson's disease at this time. An MRI of the brain will be helpful to distinguish acute from chronic issues. Probably comparison of the previous MRI done within the last year at [facility] may also be helpful and I mentioned that to her sons. Since the platelet count is low I will suggest to keep a single anti-platelet for now. We can discontinue aspirin continue the clopidogrel 75 mg a day. Consult date: 06/22/25 HPI: Christiana Jason is a 79 year old female presented to the hospital with the difficulty speech. The patient has been seeing a neurologist [facility] regarding tremor and apparently many other testing has been planned. There is has been some concern regarding the memory but overall the concern at this time is about not being able to find the words to express herself. No weakness in upper lower limbs. No difficultyin swallowing. She is able to talk but she still has difficulty finding the right words at times. Two of her sons were available at the time of this evaluation. no history of trauma . She is currently on IV antibiotics until 07/06/2025. She has had problem with the ankle and urinary tract infection since August. She has been to rehab at [facility] and the plan is that once he gets better she could go to assisted living. She has 3 children. Review of Systems Review of Systems: All systems reviewed & are unremarkable except as noted in HPI and below PMFSH Past Medical History Medical History Chronic obstructive pulmonary disease, unspecified Atrial fibrillation Other acute osteomyelitis, right ankle and foot History of skin cancer Cancer of kidney 2015 - left Surgical History Surgical History History of tonsillectomy History of back surgery History of kidney removal History of hernia repair History of knee replacement left - 2017 History of cholecystectomy Family History Family History Sibling Hypertension Cerebrovascular accident Family history of Alzheimer's disease Family history of diabetes mellitus in first degree relative Family history of heart disease in male family member before age 55 Acute myocardial infarction Father Cerebrovascular accident Social History Social History Social History: Code Status per POLST signed 04/13/25: Full Code (yes CPR) Smoking status: Former smoker Tobacco type: cigarettes Alcohol intake: never Substance use: never Lack of Transportation: No Lack of Food: Never True Current Housing: I Have Housing Concerned About Future Housing: No Difficulty Paying Gas/Electric Bills: No Difficulty Paying for Meds: No Currently Unemployed: No Education: High School Diploma/GED Difficulty w/ Childcare or Family Care: No Additional living arrangements comments: 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 Meds Home Medications and Allergies Home Medications ?Medication ?Instructions ?Recorded ?Confirmed ?Type ascorbic acid (vitamin C) 500 mg 500 mg PO QPM 08/18/19 06/22/25 History capsule diltiazem HCl 360 mg 360 mg PO DAILY 08/18/19 06/22/25 History capsule,extended release 24 hr escitalopram oxalate 5 mg tablet 5 mg PO DAILY 08/18/19 06/22/25 History multivitamin 1 tablet PO DAILY 08/18/19 06/22/25 History L.acidophil,salivari-Bifido 1 cap PO BID 06/22/25 06/22/25 History bifidum-Strep thermoph 175 mg capsule (Acidophilus Probiotic Blend) acetaminophen 325 mg tablet 650 mg PO Q6H PRN pain 06/22/25 06/22/25 History aspirin 81 mg tablet,delayed 81 mg PO DAILY 06/22/25 06/22/25 History release (Adult Low Dose Aspirin) benzocaine 6 mg-menthol 10 mg 1 chastity mucous membrane Q2H PRN sore 06/22/25 06/22/25 History lozenges (Sore Throat (benzocaine throat with menthol)) carboxymethylcellulose 0.5 1 drp EACH EYE TID PRN dry eye(s) 06/22/25 06/22/25 History %-glycerin 0.9 % eye drops (Refresh Relieva) cefepime 2 gram solution for 2 g IV Q12H 06/22/25 06/22/25 History injection cholecalciferol (vitamin D3) 25 25 mcg PO .qod 06/22/25 06/22/25 History mcg (1,000 unit) capsule (Vitamin D3) diclofenac sodium 1 % topical gel 2 g topical QID PRN right 06/22/25 06/22/25 History (Arthritis Pain (diclofenac)) foot/ankle pain fluticasone fur. 100 mcg-umeclid 1 inh inhalation DAILY 06/22/25 06/22/25 History 62.5 mcg-vilant 25 mcg inhalat.powder (Trelegy Ellipta) gabapentin 100 mg capsule 100 mg PO .q12hr 06/22/25 06/22/25 History ipratropium 0.5 mg-albuterol 3 mg 3 ml inhalation QID PRN cough, 06/22/25 06/22/25 History (2.5 mg base)/3 mL nebulization shortness of breath, or wheezing soln lidocaine 4 % topical patch 1 patch topical DAILY PRN pain 06/22/25 06/22/25 History montelukast 10 mg tablet 10 mg PO QPM 06/22/25 06/22/25 History exczyemw-mztfaikt-jczkf acid 500 1 tablet PO QPM 06/22/25 06/22/25 History mcg-lutein 5 mg-zeaxanth 1 mg tablet (Macular Vitamin) nystatin 100,000 unit/gram topical 1 applic topical BID PRN skin fold 06/22/25 06/22/25 History cream maceration oxybutynin chloride 5 mg tablet 5 mg PO BID 06/22/25 06/22/25 History oxycodone 5 mg tablet 5 mg PO Q8H PRN pain (scale score 06/22/25 06/22/25 History 7-10) polyethylene glycol 3350 17 17 g PO .qod 06/22/25 06/22/25 History gram/dose oral powder (Miralax) sennosides 8.6 mg-docusate sodium 1 tab-cap PO DAILY 06/22/25 06/22/25 History 50 mg capsule (Senna Plus) vancomycin 1,000 mg intravenous 1 g IV DAILY 06/22/25 06/22/25 History injection vitamin B complex-folic acid 0.4 1 tablet PO DAILY 06/22/25 06/22/25 History mg tablet (B Complex 1 (with folic acid)) vitamin E 268 mg (400 unit) capsule 268 mg PO QPM 06/22/25 06/22/25 History Allergies Allergy/AdvReac Type Severity Reaction Status Date / Time ciprofloxacin Allergy Unknown Other Verified 06/22/25 17:06 Penicillins Allergy Unknown Hives Verified 06/22/25 17:06 Sulfa (Sulfonamide Allergy Unknown Hives Verified 06/22/25 17:06 Antibiotics) Vital Signs Vital Signs - 24 hr 06/22/25 09:10 06/22/25 09:10 06/22/25 09:31 Temperature 97.7 F Pulse Rate 74 68 Respiratory Rate 20 20 Blood Pressure 159/74 H 169/73 H Pulse Oximetry 98 96 Oxygen Delivery Room Air Room Air 06/22/25 09:47 06/22/25 09:58 06/22/25 10:01 Temperature Pulse Rate 66 65 66 Respiratory Rate 20 18 20 Blood Pressure 165/62 H 165/62 H 175/80 H Pulse Oximetry 96 96 95 Oxygen Delivery 06/22/25 10:30 06/22/25 10:31 06/22/25 11:01 Temperature Pulse Rate 62 63 67 Respiratory Rate 20 20 20 Blood Pressure 171/80 H 179/80 H 175/81 H Pulse Oximetry 94 93 93 Oxygen Delivery 06/22/25 11:16 06/22/25 11:27 06/22/25 11:46 Temperature Pulse Rate 72 67 69 Respiratory Rate 20 20 20 Blood Pressure 162/82 H 162/82 H 157/79 H Pulse Oximetry 97 100 100 Oxygen Delivery 06/22/25 11:47 06/22/25 13:48 06/22/25 14:11 Temperature Pulse Rate 66 60 58 L Respiratory Rate 21 H 20 21 H Blood Pressure 157/79 H 167/76 H 170/78 H Pulse Oximetry 98 97 95 Oxygen Delivery 06/22/25 15:01 06/22/25 15:45 Temperature 97.7 F Pulse Rate 60 64 Respiratory Rate 22 H 16 Blood Pressure 185/81 H 152/57 H Pulse Oximetry 97 100 Oxygen Delivery Exam Narrative: Patient is fully conscious alert and pleasant and cooperative. Given 3 words to repeat after few minutes he could only do 1 but was able to get another 1 with some prompting. She could not tell me the name of the hospital but she knew where she lives at. She is also unable to tell me the age of her 2 sons were in the room. She does seem to trying her best to answer to questions. She was able to name 5 colors and 5 fruits. Examination of head and neck shows no evidence of external trauma. No carotid bruit. Sounds were normal. Cranial nerves there is mild flattening of the right nasolabial fold compared to the left side. Pupils were equal reactive light. Visual tierney were within normal range. Extraocular movements are intact. Tongue was midline. Other cranial nerves within normal limits. Motor system shows normal strength in both upper and lower limbs. No asymmetry of reflexes. She has decreased vibration sense in the lower limbs. Results Labs 06/22/25 12:03 06/22/25 12:03 Labs: Short CBC 06/22/25 Range/Units 12:03 WBC 4.8 (4.5-10.0) K/mm3 Hgb 11.4 L (12.0-15.0) g/dL Hct 36.7 L (37.0-47.0) % Plt Count 101 L (150-375) k/mm3 BMP 06/22/25 12:03 Sodium 140 Potassium 3.5 Chloride 106 Carbon Dioxide 25 BUN 21 H Creatinine 0.99 Glucose 97 Calcium 9.6 Cardiac Enzymes 06/22/25 Range/Units 12:03 Troponin I < 0.012 (0.000-0.034) ng/mL Liver Function 06/22/25 Range/Units 12:03 Total Bilirubin 0.6 (0.2-1.3) mg/dL AST 22 (14-36) U/L ALT 16 (6-35) U/L Alkaline Phosphatase 103 (38-126) U/L Albumin 4.2 (3.5-5.1) g/dL Urine 06/22/25 Range/Units 09:59 Urine Color Yellow (Yellow) Urine Appearance Clear (Clear) Urine pH 6.0 (5.0-9.0) Ur Specific [place] 1.012 (1.001-1.035) Urine Protein 2+ H (Negative) mg/dL Urine Glucose (UA) Negative (Negative) mg/dL Imaging Attestation: I personally reviewed and interpreted this imaging study as follows: ( CT scan of brain and CT angiogram of the head and neck.) My impression: CT scan of brain did not show any acute findings however generalized atrophy was noted. CT angiogram of the head and neck she does show enlargement of the internal carotid artery in the distal portion Radiologist's impression: same
--- OUTSIDE RECORDS SUMMARY | 2025-06-22 18:35 | XMS_ITS | Encounter Summary ---
Author Organization [facility] Address [address] [place] [address] Care Team Providers Care Ekg Technician Name Role Phone Manas Sosa MD Primary Care Provider + Agueda Luna RN Unavailable [phone] Encounter Details Date Type Department Care Team (Late st Contact Info) Description 02/17/2024 Lab Requisition [facility] - DermPath Lab [address] [facility] 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 Answer Date of Assessment Author No 03/16/2014 4:49 PM CDT Adalberto Reno RN * Is person blind or have serious difficulty seeing? Answer Date of Assessment Author No 03/16/2014 4:49 PM CDT Adalberto Reno RN * Does person have serious difficulty walking/climbing stairs? Answer Date of Assessment Author Yes 03/16/2014 4:49 PM CDT Adalberto Reno RN * Does person have difficulty dressing/bathing? Answer Date of Assessment Author No 03/16/2014 4:49 PM CDT Adalberto Reno RN * Does person have difficulty doing errands alone? Answer Date of Assessment Author No 03/16/2014 4:49 PM CDT Adalberto Reno RN documented as of this encounter Mental Status * Does person have difficulty concentrating/remembering/making decisions? Answer Entry Date Author No 03/16/2014 4:49 PM CDT Adalberto Reno RN documented in this encounter Plan of Treatment Not on file documented as of this encounter Procedures Procedure Name Priority Date/Time Associated Diagnosis Comments DERMATOPATHOLOGY Routine 02/17/2024 9:25 AM CDT documented in this encounter Results * DERMATOPATHOLOGY (02/17/2024 9:25 AM CDT) Case Report Dermatopathology Report Case: [id number] Authorizing Provider: Nicolette Trujillo MD Collected: 02/17/2024 09:25 AM Ordering Location: [facility] - Received: 02/17/2024 01:53 PM DermPath Lab Pathologist: Nuzhat Gonzalez MD Specimen: Skin, left chin 4 1:35 PM CDT DERMATOPATHOLOGY LABORATORY Final Diagnosis Specimen A. SKIN, left chin: BASAL CELL CARCINOMA, NODULAR TYPE (C44.319) 4 1:35 PM CDT DERMATOPATHOLOGY LABORATORY at 1335 CDT Clinical History BCC vs SCC vs Other, Non healing, BLDG 4 1:35 PM CDT DERMATOPATHOLOGY LABORATORY Gross Description Specimen A: Received is one formalin filled container labeled with the patient's name and designated left chin. The specimen consists of a shave biopsy measuring 9x7x3 mm. Jar 0. 1:35 PM CDT DERMATOPATHOLOGY LABORATORY Microscopic Description Specimen A. SKIN, left chin: Within the dermis there are aggregates of basaloid cells with a high nuclear to cytoplasmic ratio and peripheral palisading. 4 1:35 PM CDT DERMATOPATHOLOGY LABORATORY Disclaimer An external and internal positive and negative controls are appropriate for the histochemical, immunohistochemical and immunofluorescence stain(s) in this case (if any), except where stated explicitly. The performance characteristics of the stain(s) cited in this report were developed and its performance characteristic determined by the Dermatopathology Laboratory at [facility], directed by Dr. Yoni Gomez. These tests need not be, and therefore are not, approved by the [place] Food and Drug Administration. The tests are used for clinical purposes. Billing Codes Specimen Charges Stain Charges 68195 1 4 1:35 PM CDT DERMATOPATHOLOGY LABORATORY Embedded Images 1:35 PM CDT DERMATOPATHOLOGY LABORATORY Pathology/Cytolo gy TISSUE SPECIMEN FROM SKIN / Unknown 02/17/2024 9:25 AM CDT 02/17/2024 1:53 PM CDT Nicolette Trujillo MD LAB - PATHOLOGY/CYTOLOGY OR DERABLES Final Result DERMATOPATHOLOGY LABORATORY [facility] - Department of Dermatology [address], [address] [phone] documented in this encounter Visit Diagnoses Not on filedocumented in this encounter Care Teams Ekg Technician Relationship Specialty Start Date End Date Manas Sosa MD [address] [place] [address] PCP - General Internal Medicine 02/09/14 Agueda Luna, RN Senior Insight Manager 03/16/14 documented as of this encounter
--- OUTSIDE RECORDS SUMMARY | 2025-06-22 18:35 | XMS_ITS | Clinical Summary ---
Author Organization [facility] [employer] Address [address] [place] [address] Care Team Providers Care Violin Teacher Name Role Phone Manas Sosa MD Primary Care Provider + Agueda Luna RN Unavailable [phone] Source Comments [facility],non-owned Affiliates and Associated Physician Practices is amultiple site organization consisting of ambulatory clinics and hospital sitesin [place], [place], [place] and [place]. This disclosure is being madepursuant to the Care Everywhere program and may not contain all information available regarding this patient. Last updated 18.[facility] Allergies Active Allergy Reactions Criticality Noted Date Comments Penicillins 03/01/2014 Sulfa Drugs 03/01/2014 Medications * Be aware that medications may not be up to date on this document. Alwaysverify current medications with the patient. diltiazem ER (TAZTIA XT) 360 MG capsule Take 360 mg by mouth once daily. Active aspirin EC (ECOTRIN) 325 MG tablet Take 325 mg by mouth once daily. Active hydrocodone-acet aminophen (NORCO) 5-325 MG tablet Take 1-2 Tabs by mouth every 4 hours as needed. 40 Tab 1 03/16/2014 Active docusate sodium 100 MG CAPS Take 100 mg by mouth 2 times daily. 03/16/2014 Active polyethylene glycol 3350 (MIRALAX) packet Take 17 g by mouth once daily as needed for Constipatio n. 03/16/2014 Active methocarbamol (ROBAXIN) 750 MG tablet Take 1 Tab by mouth every 8 hours as needed for Muscle Spasms. 40 Tab 1 03/16/2014 Active triamterene (DYRENIUM) 50 MG capsule Take 50 mg by mouth 2 times daily. Active Active Problems Problem Noted Date Diagnosed Date Kidney mass 03/01/2014 Leg pain Back pain Cancer of kidney HTN (hypertension) Encounters Date Type Department Care Team Description 06/15/2025 Lab Requisition [facility] [address] [place] [address] Maximiliano Montoya DO 06/12/2025 Lab Requisition [facility] [address] [place] [address] Maximiliano Montoya DO 06/05/2025 Lab Requisition [facility] [address] [place] [address] Maximiliano Montoya DO 05/30/2025 Lab Requisition [facility] [address] [place] [address] Maximiliano Montoya DO 05/25/2025 Lab Requisition [facility] [address] [place] [address] Maximiliano Montoya DO from Last 3 Months Family History Medical History Relation Name Comments Aneurysm Brother Cancer - Other Brother Hypertension Brother Aneurysm Father Hypertension Father Hypertension Mother Cancer - Other Sister Diabetes Sister Hypertension Sister Relation Name Status Comments Brother Alive 85 htn alzheime r Father (Age 53) stroke Mother (Age 76) pneumonia Sister Alive 79, 84, htn Social History Tobacco Use Types Packs/Day Years Used Date Smoking Tobacco: Former Cigarettes Q uit: 08/17/1969 Smokeless Tobacco: Never Alcohol Use Standard Drinks/Week Comments No 0 (1 standard drink = 0.6 oz pur e alcohol) Comments No Sex and Gender Information Value Date Recorded Sex Assigned at Not on file 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 Gender Identity Not on file Sexual Orientation Not on file Occupation Industry Job Start Date Job End Date RETIRED Not on file Not on file Not on file Last Filed Vital Signs Vital Sign Reading Time Taken Comments Blood Pressure 167/91 03/17/2014 7:50 AM CDT Pulse 99 03/17/2014 7:50 AM CDT Temperature 36.8 C (98.2 F) 03/17/2014 7:50 AM CDT Respiratory Rate 20 03/17/2014 7:50 AM CDT Oxygen Saturation 94% 03/17/2014 7:50 AM CDT Inhaled Oxygen Concentration - - Weight 88.5 kg (195 lb) 03/16/2014 10:45 AM CDT Height 152.4 cm (5') 03/16/2014 10:45 AM CDT Body Mass Index 38.08 03/16/2014 10:45 AM CDT Plan of Treatment Health Maintenance Due Date Last Done Comments BONE DENSITY TESTING 1945 MEDICARE AWV 12 MONTHS 1945 DTAP/TDAP/TD VACCINES (1 - Tdap) 1962 PNEUMOCOCCAL VACCINE 50+ (1 of 1 - PCV) 1993 ZOSTER VACCINE (1 of 2) 1993 Respiratory Syncytial Virus (RSV) Vaccine Pt: or over 60 yrs (1 - 1-dose 75+ series) 2018 DEPRESSION SCREENING 08/17/2024 COVID-19 VACCINE ( - 2023-2 5 season) 2025 INFLUENZA VACCINE (#1) 2025 HEPATITIS B VACCINE Aged Out No longe r eligible based on patient's age to complete this topic HIB VACCINE Aged Out No longer eligi ble based on patient's age to complete this topic HPV VACCINE Aged Out No longer eligi ble based on patient's age to complete this topic MENINGOCOCCAL (Group B) VACC INE SHARED DECISION-MAKING Aged Out No longer eligibl e based on patient's age to complete this topic MENINGOCOCCAL GROUPS A/C/Y/W VACCINE Aged Out No longer eligible b ased on patient's age to complete this topic Procedures Procedure Name Priority Date/Time Associated Diagnosis Comments VANCOMYCIN LEVEL TROUGH STAT 06/15/2025 10:30 AM CDT VANCOMYCIN LEVEL TROUGH STAT 06/12/2025 8:00 AM CDT VANCOMYCIN LEVEL TROUGH STAT 06/05/2025 8:00 AM CDT VANCOMYCIN LEVEL TROUGH STAT 05/30/2025 8:00 AM CDT VANCOMYCIN LEVEL TROUGH STAT 05/25/2025 8:00 AM CDT from Last 3 Months Results * (ABNORMAL) VANCOMYCIN LEVEL TROUGH (06/15/2025 10:30 AM CDT) Only the most recent of5 resultswithin the time period is included. Vancomycin Trough 21.8(H) 10.0 - 20.0 ug/mL 06/15/2025 1:58 PM CDT [facility] Blood BLOOD SPECIMEN / Unknown Venipuncture / Unknown 06/15/2025 10:30 AM CDT 06/15/2025 1:26 PM CDT Maximiliano Montoya DO LAB - CHEMISTRY ORDERABLES Final Result Performing Organization Address City/State/[facility] Co de Phone Number [facility] [address] [place] [address] from Last 3 Months Insurance MEDIC[place] [address] MEDICARE MEDICARE [facility] Address: [address] [address] ATTN [facility] [place] [phone] MEDICARE [facility] Address: [address] [address] ATTN [facility] [place] [address] Advance Directives * Full Code (Latest Code Status on File) Date Activated Date Inactivated Comments 03/16/2014 4:40 PM 03/17/2014 1:06 PM Care Teams Violin Teacher Relationship Specialty Start Date End Date Manas Sosa MD [address] [place] [phone] PCP - General Internal Medicine 02/09/14 Agueda Luna, RN Hospitality House Supervisor 03/16/14
--- OUTSIDE RECORDS SUMMARY | 2025-06-22 18:35 | XMS_ITS | Encounter Summary ---
Author Organization [facility] Address [address] [place] [address] Care Team Providers Care Steward/Stewardess Banquet Name Role Phone Manas Sosa MD Primary Care Provider + Agueda Luna RN Unavailable Encounter Details Date Type Department Care Team (Late st Contact Info) Description 05/30/2025 Lab Requisition [facility] [address] [place], [place] [phone] Maximiliano Montoya DO [address] [place] [phone] Social History Tobacco Use Types Packs/Day Years Used Date Smoking Tobacco: Former Cigarettes Q uit: 08/17/1969 Smokeless Tobacco: Never Alcohol Use Standard Drinks/Week Comments No 0 (1 standard drink = 0.6 oz pur e alcohol) Comments No Sex and Gender Information Value Date Recorded Sex Assigned at Not on file 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 Answer Date of Assessment Author No 03/16/2014 4:49 PM CDAdalberto Connor RN * Is person blind or have [...] Associated Diagnosis Comments VANCOMYCIN LEVEL TROUGH STAT 05/30/2025 8:00 AM CDT documented in this encounter Results * VANCOMYCIN LEVEL TROUGH (05/30/2025 8:00 AM CDT) Vancomycin Trough 17.1 10.0 - 20.0 ug/mL 05/30/2025 4:37 PM CDT [facility] Blood BLOOD SPECIMEN / Unknown Venipuncture / Unknown 05/30/2025 8:00 AM CDT 05/30/2025 4:00 PM CDT Maximiliano Montoya DO LAB - CHEMISTRY ORDERABLES Final Result [facility] [address] [place] [address] documented in this encounter Visit Diagnoses Not on filedocumented in this encounter Care Teams Steward/Stewardess Banquet Relationship Specialty Start Date End Date Manas Sosa MD [address] [place] [phone] PCP - General Internal Medicine 02/09/14 Agueda Luna, RN Art Dealer 03/16/14 documented as of this encounter
--- OUTSIDE RECORDS SUMMARY | 2025-06-22 18:35 | XMS_ITS | Patient Health Record ---
Author Organization [facility] Address [address] [place] [id number] Care Team Providers Care Warehouse Driver Name Role Phone DR. DARRYN CHOWDARY Primary Care Provider [phone] KRISTA ALLRED Unavailable [phone] Deandra Finney Unavailable [phone] Chanda Esquivel Unavailable [phone] Libby Villasenor Unavailable [phone] Allergies Allergen (clinical drug ingredient) Drug/Non Drug [...] triamterene Triamterene Unknown Drug Allergy Act diya Results Component Value Reference Range Notes X ray : Chest with 2 views Reviewed date:06/14/2025 07:05:42 PM Interpretation: Performing Lab: Notes/Report: CBC Reviewed date:06/14/2025 07:06:51 PM Interpretation: Performing Lab: Notes/Report: Procalcitonin Reviewed date:06/14/2025 07:07:14 PM Interpretation: Performing Lab: Notes/Report: Sedimentation Rate-[place] Reviewed date:06/14/2025 07:07:37 PM Interpretation: Performing Lab: Notes/Report: Basic Metabolic Panel (8) Reviewed date:06/14/2025 07:08:01 PM Interpretation: Performing Lab: Notes/Report: ESR Reviewed date:06/14/2025 07:12:17 PM Interpretation: Performing Lab: Notes/Report: Sedimentation Rate-[place] Reviewed date:06/14/2025 07:08:57 PM Interpretation: Performing Lab: Notes/Report: Urine Culture and Sensitivit y Reviewed date:06/14/2025 07:04:54 PM Interpretation: Performing Lab: Notes/Report: Chest X-ray PA and lateral Reviewed date:06/14/2025 07:06:14 PM Interpretation: Performing Lab: Notes/Report: X ray : Chest with 2 views Reviewed date:12/06/2024 08:53:41 AM Interpretation: Performing Lab: Notes/Report: X ray : Ankle, right Reviewed date:12/06/2024 07:46:46 AM Interpretation: Performing Lab: Notes/Report: X ray : Knee, right 2 views Reviewed date:11/30/2024 08:30:58 AM Interpretation: Performing Lab: Notes/Report: CBC Reviewed date:11/28/2024 02:23:11 PM Interpretation: Performing Lab: Notes/Report: Basic Metabolic Panel (8) Reviewed date:11/28/2024 02:23:29 PM Interpretation: Performing Lab: Notes/Report: Viral Culture, General Reviewed date:11/04/2024 09:17:53 AM Interpretation: Performing Lab: Notes/Report: X ray : Chest with 2 views Reviewed date:11/03/2024 08:57:54 AM Interpretation: Performing Lab: Notes/Report: CBC With Differential/Platel et Reviewed date:11/02/2024 02:26:52 PM Interpretation: Performing Lab: Notes/Report: Reason For Referral Reason Continues with wheez ing/coughing that is not improving with Duonebs, Mucinex, etc. Recurrent issue with negative CXR results. Diagnosis 1 Wheezing (R06.2) Diagnosis 2 Cough, unspecified ( R05.9) Referral Organization [facility] Referring Provider First Name DARRYN Referring Provider Last Name RICARDA Referring Provider Speciality Internal M edicine Referred Organization [facility] Referred Address [address] [place] [id number], Referred Provider Specialty Pulmonology General Notes Aranza Corrigan 12/16 04:26:50 PM >Patient discharged from facility Referral Priority Routine Medications Medication SIG (Take, Route, Frequency, Duration) Notes Start Date End Date Status Vitamin D3 25 MCG (1000 UT) Tablet [...] Benefit - Tablet as directed Orally Active Montelukast Sodium 10 MG Tablet 1 tablet Orally Once a day Active Nystatin 126982 UNIT/GM Cream 1 application Externally Twice a day Active Lidocaine 4 % Patch 1 patch as needed Externally every 12 hours Active dilTIAZem HCl ER 360 MG Tablet Extended Release 24 Hour 1 tablet Orally Once a day Active Vancomycin HCl 1000 MG Solution Reconstituted amt: 1 gram IV; intravenous Once A Day Intravenous Active Senna 8.6 MG Tablet 1 tablet Orally Once a day Active Vitamin E 268 MG (400 UNIT) Capsule one tablet Orally daily Acti ve oxyBUTYnin Chloride 5 MG Tablet 1 tablet Orally Once a day Active Gabapentin 100 MG Capsule 1 capsule at b edtime Orally twice a day Active Voltaren Arthritis Pain 1 % Gel as directed Externally Activ e Escitalopram Oxalate 5 MG Tablet 1 tablet Orally Once a day Active Aspirin Adult Low Dose 81 MG Tablet Delayed Release 1 tablet Orally Once a day Active Multiple Vitamins - Tablet 1 tablet Oral ly Once a day Active oxyCODONE HCl 5 MG Tablet 1 Tablet PO ME N FOR PAIN Orally every 8 hours 06/01/2025 Active Cefepime HCl 100 GM Solution Reconstituted as directed Intravenous Active B Complex 1 - Tablet as directed Orally Active Acidophilus Probiotic Blend - Capsule as directed Orally Active Acetaminophen 500 MG Capsule 1 capsule as needed Orally every 6 hrs Active Ipratropium-Albuterol 0.5-2.5 (3) MG/3ML Solution 3 mL Inhalation 4 times a day; Duration: 5 days 05/06/2025 Active Sore Throat 6-10 MG Lozenge 1 lozenge as needed Mouth/Throat every 2 hrs Active Social History Tobacco Use: Social History Observation Description Date Details (start date - stop date) Former Smoker NA - NA Social History Drug/Alcohol: Social Info Question Answer Notes Drugs Have you used drugs other than those for medical reasons in the past 12 months? No AUDIT-C (Standard) Did you have a drink containing alcohol in the past year? Yes How often did you have a drink containing alcohol in the past year? Monthly or less (1 point) How many drinks did you have on a typical day when you were drinking in the past year? 1 or 2 drinks (0 point) How often did you have six or more drinks on one occasion in the past year? Never (0 point) Points 1 Interpretation Negative Tobacco Use: Social Info Question Answer Notes Tobacco Control (Standard) Tobacco use: Former smoker Problems Problem Type SNOMED Code ICD Code Onset Dates Problem Status W/U Status Risk Notes Problem Vitamin D deficiency (23789570) Vitamin D deficiency, unspecified (E55.9) Active confirmed Problem Vitamin deficiency (64174205) Vitamin deficiency, unspecified (E56.9) Active confirmed Problem Extreme obesity with alveolar hypoventilation (862260695) Morbid (severe) obesity with alveolar hypoventilation (E66.2) Active confirmed Problem Anxiety disorder (116567963) Anxiety disorder, unspecified (F41.9) Active confirmed Problem Nuclear senile cataract (413781874) Age-related nuclear cataract, bilateral (H25.13) Active confirmed Problem Degenerative disorder of macula (140729795) Unspecified macular degeneration (H35.30) Active confirmed Problem Essential hypertension (34723534) Essential (primary) hypertension (I10) Active confirmed Problem Atrial fibrillation (13517624) Unspecified atrial fibrillation (I48.91) Active confirmed Problem Chronic obstructive pulmonary disease (11068832) Chronic obstructive pulmonary disease, unspecified (J44.9) Active confirmed Problem Diverticulitis of colon (779706564) Diverticulitis of intestine, part unspecified, without perforation or abscess without bleeding (K57.92) Active confirmed Problem Constipation (31370058) Constipation, unspecified (K59.00) Active confirmed Problem Osteoarthritis (074643205) Polyosteoarthritis , unspecified (M15.9) Active confirmed Problem Acute osteomyelitis of ankle and/or foot (733409873) Other acute osteomyelitis, right ankle and foot (M86.171) Active confirmed Problem Overactive bladder (588511387) Overactive bladder (N32.81) Active confirmed Problem Oropharyngeal dysphagia (98568376) Dysphagia, oropharyngeal phase (R13.12) Active confirmed Problem Walking disability (832004896) Difficulty in walking, not elsewhere classified (R26.2) Active confirmed Problem Abnormal gait (76003131) Other abnormalities of gait and mobility (R26.89) Active confirmed Problem Abnormal gait (62809279) Unspecified abnormalities of gait and mobility (R26.9) Active confirmed Problem Cognitive communication disorder (704502442) Cognitive communication deficit (R41.841) Active confirmed Problem Absent kidney (842738395) Acquired absence of kidney (Z90.5) Active confirmed Problem Body mass index 40+ - severely obese (062355273) Body mass index [BMI] 45.0-49.9, adult (Z68.42) Active confirmed Problem Anxiety (58062057) Anxiety (F41.9) Active confi rmed Problem Ataxia (52481380) Ataxia (R27.0) Active confirm ed Problem Atherosclerosis of coronary artery without angina pectoris (820468911832934) Atherosclerosis of [place] coronary artery of [place] heart without angina pectoris (I25.10) Active confirmed Problem Chronic obstructive pulmonary disease (disorder) (68732949) Other specified chronic obstructive pulmonary disease (J44.89) Active confirmed Problem Polyneuropathy (47576531) Polyneuropathy (G62.9) Active confirmed Vital Signs Heart Rate 72 /min 06/20/2025 Temperature 97.6 degrees Fahrenheit 06/20/2025 Respiratory Rate 18 /min 06/20/2025 Oximetry 96 % 06/20/2025 Blood pressure diastolic 80 mm Hg 06/20/2025 Weight-kg 95.26 kg 04/14/2025 Blood pressure systolic 132 mm Hg 06/20/2025 Weight 210 lbs 04/14/2025 Encounters Encounter Location Date Provider Diagnosis [address] [address] 09/15/2024 DARRYN CHOWDARY Injury of right foot , initial encounter S99.921A and Physical deconditioning R53.[address] [address] 09/28/2024 Chanda Esquivel Displaced trimalleol ar fracture of right lower leg, subsequent encounter for closed fracture with routine healing S82.851D ; Other specified chronic obstructive pulmonary disease J44.89 ; Essential (primary) hypertension I10 and Anxiety F41.[address] [address] 10/05/2024 Chanda Esquivel Displaced trimalleol ar fracture of right lower leg, subsequent encounter for closed fracture with routine healing S82.851D ; Bronchitis J40 ; Other specified chronic obstructive pulmonary disease J44.89 ; Essential (primary) hypertension I10 and Anxiety F41.9 [place] [address] 10/12/2024 KRISTA ALLRED Displaced trimalleol ar fracture of right lower leg, subsequent encounter for closed fracture with routine healing S82.851D ; Physical deconditioning R53.81 ; Personal history of (healed) traumatic fracture Z87.81 ; Other specified postprocedural states Z98.890 ; Other specified chronic obstructive pulmonary disease J44.89 ; Essential (primary) hypertension I10 ; Acute non-recurrent maxillary sinusitis J01.00 ; Mass of jaw M27.8 and Swelling, lymph nodes R59.9 [place] [address] 10/19/2024 KRISTA ALLRED Physical deconditioning R53.81 ; Other specified chronic obstructive pulmonary disease J44.89 ; Displaced trimalleolar fracture of right lower leg, subsequent encounter for closed fracture with routine healing S82.851D ; Personal history of (healed) traumatic fracture Z87.81 ; Other specified postprocedural states Z98.890 and Essential (primary) hypertension I10 [place] [address] 10/26/2024 Chanda Esquivel Physical deconditioning R53.81 ; Other specified chronic obstructive pulmonary disease J44.89 ; Displaced trimalleolar fracture of right lower leg, subsequent encounter for closed fracture with routine healing S82.851D ; Personal history of (healed) traumatic fracture Z87.81 ; Other specified postprocedural states Z98.890 and Essential (primary) hypertension I10 [place] [address] 11/02/2024 DARRYN CHOWDARY Essential (primary) hypertension I10 and Acute cough R05.1 [place] [address] 11/09/2024 Chanda Esquivel Other specified chronic obstructive pulmonary disease J44.89 ; Acute respiratory failure with hypoxia J96.01 ; Physical deconditioning R53.81 ; Displaced trimalleolar fracture of right lower leg, subsequent encounter for closed fracture with routine healing S82.851D ; Personal history of (healed) traumatic fracture Z87.81 ; Other specified postprocedural states Z98.890 and Essential (primary) hypertension I10 [place] [address] 11/16/2024 [facility] Physical deconditioning R53.81 ; Displaced trimalleolar fracture of right lower leg, subsequent encounter for closed fracture with routine healing S82.851D ; Acute respiratory failure with hypoxia J96.01 ; Other specified chronic obstructive pulmonary disease J44.89 ; Personal history of (healed) traumatic fracture Z87.81 ; Other specified postprocedural states Z98.890 and Essential (primary) hypertension I10 [place] [address] 11/23/2024 [facility] Physical deconditioning R53.81 ; Displaced trimalleolar fracture of right lower leg, subsequent encounter for closed fracture with routine healing S82.851D ; Acute respiratory failure with hypoxia J96.01 ; Other specified chronic obstructive pulmonary disease J44.89 ; Personal history of (healed) traumatic fracture Z87.81 ; Other specified postprocedural states Z98.890 and Essential (primary) hypertension I10 [place] [address] 11/28/2024 Deandra Finney Physical deconditioning R53.81 ; Displaced trimalleolar fracture of right lower leg, subsequent encounter for closed fracture with routine healing S82.851D ; Other specified chronic obstructive pulmonary disease J44.89 ; Essential (primary) hypertension I10 ; Anxiety F41.9 ; Constipation, unspecified K59.00 and Unspecified open wound, right lower leg, initial encounter S81.801A [place] [id number] 12/07/2024 [facility] Physical deconditioning R53.81 ; Displaced trimalleolar fracture of right lower leg, subsequent encounter for closed fracture with routine healing S82.851D ; Acute respiratory failure with hypoxia J96.01 ; Other specified chronic obstructive pulmonary disease J44.89 ; Personal history of (healed) traumatic fracture Z87.81 ; Other specified postprocedural states Z98.890 ; Essential (primary) hypertension I10 ; Cough, unspecified R05.9 and Constipation, unspecified K59.[address] [address] 12/14/2024 Chanda Esquivel Physical deconditioning R53.81 ; Displaced trimalleolar fracture of right lower leg, subsequent encounter for closed fracture with routine healing S82.851D ; Acute respiratory failure with hypoxia J96.01 ; Other specified chronic obstructive pulmonary disease J44.89 ; Personal history of (healed) traumatic fracture Z87.81 ; Other specified postprocedural states Z98.890 ; Essential (primary) hypertension I10 ; Cough, unspecified R05.9 and Constipation, unspecified K59.[address] [address] 12/21/2024 Chanda Esquivel Physical deconditioning R53.81 ; Displaced trimalleolar fracture of right lower leg, subsequent encounter for closed fracture with routine healing S82.851D ; Acute respiratory failure with hypoxia J96.01 ; Other specified chronic obstructive pulmonary disease J44.89 ; Personal history of (healed) traumatic fracture Z87.81 ; Other specified postprocedural states Z98.890 ; Essential (primary) hypertension I10 ; Cough, unspecified R05.9 and Constipation, unspecified K59.[address] [address] 04/14/2025 DARRYN CHOWDARY [address] [address] 04/19/2025 Chanda Esquivel Physical deconditioning R53.81 ; Unspecified atrial fibrillation I48.91 ; Chronic obstructive pulmonary disease, unspecified J44.9 ; Essential (primary) hypertension I10 and Vitamin D deficiency, unspecified E55.[address] [address] 04/21/2025 Chanda Esquivel Physical deconditioning R53.81 ; Unspecified atrial fibrillation I48.91 ; Chronic obstructive pulmonary disease, unspecified J44.9 ; Essential (primary) hypertension I10 and Vitamin D deficiency, unspecified E55.[address] [address] 04/25/2025 Chanda Esquivel Physical deconditioning R53.81 ; Unspecified atrial fibrillation I48.91 ; Chronic obstructive pulmonary disease, unspecified J44.9 ; Essential (primary) hypertension I10 ; Vitamin D deficiency, unspecified E55.9 and UTI symptoms R39.[address] [address] 04/27/2025 Chanda Alvin Physical deconditioning R53.81 ; Unspecified atrial fibrillation I48.91 ; Chronic obstructive pulmonary disease, unspecified J44.9 ; Essential (primary) hypertension I10 ; Vitamin D deficiency, unspecified E55.9 ; UTI symptoms R39.9 and Bronchitis J40 [place] [id number] 05/02/2025 Chanda Alvin Physical deconditioning R53.81 ; Unspecified atrial fibrillation I48.91 ; Chronic obstructive pulmonary disease, unspecified J44.9 ; Essential (primary) hypertension I10 ; Vitamin D deficiency, unspecified E55.9 ; UTI symptoms R39.9 and Bronchitis J40 [place] [id number] 05/04/2025 Chanda Esquivel Physical deconditioning R53.81 ; Unspecified atrial fibrillation I48.91 ; Chronic obstructive pulmonary disease, unspecified J44.9 ; Essential (primary) hypertension I10 ; Vitamin D deficiency, unspecified E55.9 and Cough, unspecified R05.[address] [address] 05/09/2025 Chandathu Esquivel Physical deconditioning R53.81 ; Unspecified atrial fibrillation I48.91 ; Chronic obstructive pulmonary disease, unspecified J44.9 ; Essential (primary) hypertension I10 ; Vitamin D deficiency, unspecified E55.9 ; Cough, unspecified R05.9 and Overactive bladder N32.[address] [address] 05/16/2025 Chanda Alvin Physical deconditioning R53.81 ; Unspecified atrial fibrillation I48.91 ; Chronic obstructive pulmonary disease, unspecified J44.9 ; Essential (primary) hypertension I10 ; Vitamin D deficiency, unspecified E55.9 ; Cough, unspecified R05.9 and Overactive bladder N32.81 [place] [id number] 05/18/2025 Chanda Esquivel Physical deconditioning R53.81 ; Unspecified atrial fibrillation I48.91 ; Chronic obstructive pulmonary disease, unspecified J44.9 ; Essential (primary) hypertension I10 ; Vitamin D deficiency, unspecified E55.9 ; Right leg pain M79.604 and Overactive bladder N32.81 [place] [address] 05/25/2025 Chanda Esquivel Physical deconditioning R53.81 ; Other acute osteomyelitis, right ankle and foot M86.171 ; Unspecified atrial fibrillation I48.91 ; Chronic obstructive pulmonary disease, unspecified J44.9 ; Essential (primary) hypertension I10 and Vitamin D deficiency, unspecified E55.9 [place] [address] 05/31/2025 Chanda Esquivel Physical deconditioning R53.81 ; Other acute osteomyelitis, right ankle and foot M86.171 ; Unspecified atrial fibrillation I48.91 ; Chronic obstructive pulmonary disease, unspecified J44.9 ; Essential (primary) hypertension I10 and Vitamin D deficiency, unspecified E55.9 [place] [address] 06/02/2025 Chanda Esquivel Physical deconditioning R53.81 ; Other acute osteomyelitis, right ankle and foot M86.171 ; Unspecified atrial fibrillation I48.91 ; Chronic obstructive pulmonary disease, unspecified J44.9 ; Essential (primary) hypertension I10 and Vitamin D deficiency, unspecified E55.9 [place] [id number] 06/06/2025 Chanda Esquivel Physical deconditioning R53.81 ; Other acute osteomyelitis, right ankle and foot M86.171 ; Unspecified atrial fibrillation I48.91 ; Chronic obstructive pulmonary disease, unspecified J44.9 ; Essential (primary) hypertension I10 and Vitamin D deficiency, unspecified E55.9 [place] [address] 06/08/2025 DARRYN CHOWDARY [place] [id number] 06/13/2025 Chanda Esquivel Physical deconditioning R53.81 ; Other acute osteomyelitis, right ankle and foot M86.171 ; Unspecified atrial fibrillation I48.91 ; Chronic obstructive pulmonary disease, unspecified J44.9 ; Essential (primary) hypertension I10 and Vitamin D deficiency, unspecified E55.[address] [address] 06/15/2025 Chanda Esquivel Physical deconditioning R53.81 ; Other acute osteomyelitis, right ankle and foot M86.171 ; Unspecified atrial fibrillation I48.91 ; Chronic obstructive pulmonary disease, unspecified J44.9 ; Essential (primary) hypertension I10 and Vitamin D deficiency, unspecified E55.[address] [address] 06/20/2025 Chanda Esquivel Physical deconditioning R53.81 ; Other acute osteomyelitis, right ankle and foot M86.171 ; Unspecified atrial fibrillation I48.91 ; Chronic obstructive pulmonary disease, unspecified J44.9 ; Essential (primary) hypertension I10 and Vitamin D deficiency, unspecified E55.[address] [address] 05/31/2025 [address] [address] 06/22/2025 DARRYN [facility] [address] [address] 09/15/2024 DARRYN [facility] [address] [address] 09/29/2024 Chanda [facility] [address] [address] 10/21/2024 Chanda [facility] [address] [address] 11/03/2024 Chanda Esquivel [address] [address] 11/03/2024 Chanda [facility] [address] [address] 11/09/2024 Ch[facility] [address] [id number] 11/11/2024 DARRYN [facility] [address] [id number] 11/13/2024 DARRYN FLICK [facility] [address] [place] [id number] 11/24/2024 DARRYN CHOWDARY [facility] [address] [place] [address] 11/29/2024 DARRYN CHOWDARY [facility] [address] [place] [address] 11/29/2024 Libby Villasenor [facility] [address] [place] [address] 11/30/2024 DARRYN CHOWDARY [facility] [address] [place] [address] 12/02/2024 Chanda Esquivel [facility] [address] [place] [address] 12/05/2024 DARRYN CHOWDARY [facility] [address] [place] [address] 12/05/2024 DARRYN CHOWDARY [facility] [address] [place] [address] 12/06/2024 Chanda Alvin [facility] [address] [place] [address] 12/06/2024 Chanda Alvin [facility] [address] [place] [address] 12/13/2024 Chanda Alvin [facility] [address] [place] [address] 12/20/2024 Chanda Alvin [facility] [address] [place] [address] 12/22/2024 [place] [address] [place] [address] 04/13/2025 DARRYN [place] [address] [place] [address] 04/14/2025 DARRYN [place]ro [place] [address] [place] [address] 04/19/2025 DARRYN Oro [facility] [address] [place] [address] 04/20/2025 [facility] [address] [place] [address] 04/24/2025 DARRYN Oro [facility] [address] [place] [address] 04/26/2025 Chanda Esquivel [facility] [address] [place] [address] 05/02/2025 [place] [address] [place] [address] 05/02/2025 Chanda Esquivel [facility] [address] [place] [address] 05/04/2025 Chanda Esquivel [facility] [address] [place] [address] 05/08/2025 Chanda Esquivel [facility] [address] [place] [address] 05/09/2025 [facility] [address] [place] [address] 05/09/2025 DARRYN Oro [facility] [address] [place] [address] 05/15/2025 DARRYN Oro [facility] [address] [place] [address] 05/17/2025 DARRYN Oro [facility] [address] [place] [address] 05/18/2025 DARRYN Oro [facility] [address] [place] [address] 05/19/2025 DARRYN Oro [facility] [address] [place] [address] 05/22/2025 DARRYN Oro [facility] [address] [place] [address] 05/24/2025 DARRYN Oro [facility] [address] [place] [address] 05/29/2025 DARRYN Oro [facility] [address] [place] [address] 05/30/2025 [facility] [address] [place] [address] 05/31/2025 DARRYN Oro [facility] [address] [place] [address] 06/01/2025 Chanda Esquivel [facility] [address] [place] [address] 06/02/2025 DARRYN Oro [facility] [address] [place] [address] 06/05/2025 DARRYN Oro [facility] [address] [place] [address] 06/06/2025 DARRYN Oro [facility] [address] [place] [address] 06/12/2025 DARRYN Oro [facility] [address] [place] [address] 06/13/2025 DARRYN CHOWDARY [facility] [address] [place] [address] 06/19/2025 DARRYN CHOWDARY [facility] [address] [address] 06/21/2025 DARRYN CHOWDARY Assessments Encounter Date Diagnosis (ICD Code) Assessment Notes Treatment Notes Treatment Clinical Notes Section Notes 09/15/2024 Physical deconditioning (ICD-10 - R53.81) 09/15/2024 Injury of right foot, initial encounter (ICD-10 - S99.921A) 09/28/2024 Displaced trimalleolar fracture of right lower leg, subsequent encounter for closed fracture with routine healing (ICD-10 - S82.851D) Patient is working with PT/OT for strengthening and mobility. Reports therapy is going well. Utilizes a wheelchair for ambulation. Walking boot in place on right leg. 09/28/2024 Other specified chronic obstructive pulmonary disease (ICD-10 - J44.89) Has a loose/wet sounding cough, not feeling well. Get 2-view chest xray, and start duonebs TID x 5 days. 10/05/2024 Displaced trimalleolar fracture of right lower leg, subsequent encounter for closed fracture with routine healing (ICD-10 - S82.851D) Patient is working with PT/OT for strengthening and mobility. Reports therapy is going well. Utilizes a wheelchair for ambulation. Walking boot in place on right leg. 10/05/2024 Bronchitis (ICD-10 - J40) She was seen in the ED yesterday for coughing and SOB, O2 sats 88%. Determined to be possibly be viral bronchites, and not pneumonia she was discharged with predinsone, and advised neb treatments q4hr. 10/12/2024 Displaced trimalleolar fracture of right lower leg, subsequent encounter for closed fracture with routine healing (ICD-10 - S82.851D) Underwent ORIF on 09/08/[address] Chaudhry. Reports another follow up next week, 10/19/24. Reports pain is currently controlled. Remains in walking boot but is non weight bearing. Utilizing wheelchair for ambulation. Continue current treatment plan and monitoring. 10/12/2024 Physical deconditioning (ICD-10 - R53.81) Working with PT/OT. Currently non-weight bearing to right lower extremity. Utilizing wheelchair for ambulation. Dependent or requires assistance with ADLs. 10/19/2024 Physical deconditioning (ICD-10 - R53.81) Working with PT/OT. Currently non-weight bearing to right lower extremity. Utilizing wheelchair for ambulation. Dependent or requires assistance with ADLs. 10/19/2024 Other specified chronic obstructive pulmonary disease (ICD-10 - J44.89) Cough and congestion much improved. Patient reports almost resolved. No complaints of shortness of breath. Stable on current medication regimen. Continue current treatment plan and monitoring. 10/26/2024 Physical deconditioning (ICD-10 - R53.81) Working with PT/OT. Therapy going well since being total weight bearing to right lower extremity. Utilizing wheelchair for ambulation. Dependent or requires assistance with ADLs. 11/09/2024 Acute respiratory failure with hypoxia (ICD-10 - J96.01) She was admitted from 11/04-11/08 due to COVID, Acute respiratory failure, and NSTEMI. She started on remdesivir, steroids, and O2. She was able to be weaned off O2 in the hospital, was discharged on dexamethasone 6mg daily x 2 days. 11/02/2024 Essential (primary) hypertension (ICD-10 - I10) 11/02/2024 Acute cough (ICD-10 - R05.1) 11/09/2024 Other specified chronic obstructive pulmonary disease (ICD-10 - J44.89) Patient reports resolved. No complaints of shortness of breath. Stable on current medication regimen. Continue current treatment plan and monitoring. 11/16/2024 Displaced trimalleolar fracture of right lower leg, subsequent encounter for closed fracture with routine healing (ICD-10 - S82.851D) Underwent ORIF on 09/08/[address] Chaudhry. Next ortho appointment this afternoon, hoping to be able to take the boot off. Reports pain is currently controlled. Remains in walking boot is now full weight bearing. Utilizing wheelchair for ambulation. Continue current treatment plan and monitoring. 11/16/2024 Physical deconditioning (ICD-10 - R53.81) Working with PT/OT. Therapy going well since being total weight bearing to right lower extremity. Utilizing wheelchair for ambulation. Dependent or requires assistance with ADLs. 11/23/2024 Physical deconditioning (ICD-10 - R53.81) Working with PT/OT. Therapy going well since being total weight bearing to right lower extremity. Utilizing wheelchair for ambulation. Dependent or requires assistance with ADLs. 11/28/2024 Displaced trimalleolar fracture of right lower leg, subsequent encounter for closed fracture with routine healing (ICD-10 - S82.851D) Underwent ORIF on 09/08/[address] Chaudhry. Had a f/u last week and no longer has to wear the walking boot, has a walking shoe in place now. Reports pain is currently controlled. Utilizing wheelchair for ambulation. Continue current treatment plan and monitoring. Elevated RLE to help decrease swelling and notify provide of any changes. 11/28/2024 Physical deconditioning (ICD-10 - R53.81) Working with PT/OT. Therapy going well since being total weight bearing to right lower extremity. Utilizing wheelchair for ambulation. Dependent or requires assistance with ADLs. 12/07/2024 Physical deconditioning (ICD-10 - R53.81) Working with PT/OT. Therapy going well since being total weight bearing to right lower extremity. Utilizing wheelchair for ambulation. Dependent or requires assistance with ADLs. 12/14/2024 Physical deconditioning (ICD-10 - R53.81) Working with PT/OT. Therapy going well since being total weight bearing to right lower extremity. Utilizing wheelchair for ambulation. Dependent or requires assistance with ADLs. 12/21/2024 Physical deconditioning (ICD-10 - R53.81) Working with PT/OT. Therapy going well since being total weight bearing to right lower extremity. Utilizing wheelchair for ambulation. Dependent or requires assistance with ADLs. She is discharging today with orders for home health nursing, and PT/OT. 04/19/2025 Unspecified atrial fibrillation (ICD-10 - I48.91) Rate is controlled. Managed well on current medications. Continue current treatment plan and monitoring. 04/19/2025 Physical deconditioning (ICD-10 - R53.81) Patient is working with PT and OT for strengthening and mobility. She reports therapy is going good. She utilizes a wheelchair for ambulation. 04/21/2025 Physical deconditioning (ICD-10 - R53.81) Patient is working with PT and OT for strengthening and mobility. She reports therapy is going good. She utilizes a wheelchair for ambulation. 04/25/2025 Unspecified atrial fibrillation (ICD-10 - I48.91) Rate is controlled. Managed well on current medications. Continue current treatment plan and monitoring. 04/25/2025 Physical deconditioning (ICD-10 - R53.81) Patient is working with PT and OT for strengthening and mobility. She reports therapy is going good. She utilizes a wheelchair for ambulation. 04/27/2025 Unspecified atrial fibrillation (ICD-10 - I48.91) Rate is controlled. Managed well on current medications. Continue current treatment plan and monitoring. 04/27/2025 Physical deconditioning (ICD-10 - R53.81) Patient is working with PT and OT for strengthening and mobility. She reports therapy is going good. She utilizes a wheelchair for ambulation. 05/02/2025 Physical deconditioning (ICD-10 - R53.81) Patient is working with PT and OT for strengthening and mobility. She reports therapy is going good. She utilizes a wheelchair for ambulation. 05/04/2025 Unspecified atrial fibrillation (ICD-10 - I48.91) Rate is controlled. Managed well on current medications. Continue current treatment plan and monitoring. 05/04/2025 Physical deconditioning (ICD-10 - R53.81) Patient is working with PT and OT for strengthening and mobility. She reports therapy is going good. She utilizes a wheelchair for ambulation. 05/09/2025 Unspecified atrial fibrillation (ICD-10 - I48.91) Rate is controlled. Managed well on current medications. Continue current treatment plan and monitoring. 05/09/2025 Physical deconditioning (ICD-10 - R53.81) Patient is working with PT and OT for strengthening and mobility. She reports therapy is going good. She utilizes a wheelchair for ambulation. 05/16/2025 Physical deconditioning (ICD-10 - R53.81) Patient is working with PT and OT for strengthening and mobility. She reports therapy is going good. She utilizes a wheelchair for ambulation. 05/18/2025 Physical deconditioning (ICD-10 - R53.81) Patient is working with PT and OT for strengthening and mobility. She reports therapy is going good. She utilizes a wheelchair for ambulation. 05/25/2025 Other acute osteomyelitis, right ankle and foot (ICD-10 - M86.171) Patient was sent to the emergency room due to severe ankle pain and was found to have osteomyelitis of the right ankle. On 05/20/2025, they removed the medial plate and screws and the lateral plate and screws of the right ankle, which had been placed in August due to an ankle fracture. Blood cultures and wound cultures were negative. Culture of the devices that were removed had staph species noted. Patient is currently on IV vancomycin and IV cefepime with a tentative stop date of 07/06/2025. She will be following with ID doctor. PICC line in place. 05/25/2025 Physical deconditioning (ICD-10 - R53.81) Patient is working with PT and OT for strengthening and mobility. She reports therapy is going good. She utilizes a wheelchair for ambulation. 05/31/2025 Physical deconditioning (ICD-10 - R53.81) Patient is working with PT and OT for strengthening and mobility. She reports therapy is going good. She utilizes a wheelchair for ambulation. 06/02/2025 Physical deconditioning (ICD-10 - R53.81) Patient is working with PT and OT for strengthening and mobility. She reports therapy is going good. She utilizes a wheelchair for ambulation. Patient is now doing standby assist for transfers instead of using the sit to stand lift. Patient is very happy with her progress. 06/06/2025 Physical deconditioning (ICD-10 - R53.81) Patient is working with PT and OT for strengthening and mobility. She reports therapy is going good. She utilizes a wheelchair for ambulation. 06/13/2025 Physical deconditioning (ICD-10 - R53.81) Patient is working with PT and OT for strengthening and mobility. She reports therapy is going good. She utilizes a wheelchair for ambulation. 06/15/2025 Physical deconditioning (ICD-10 - R53.81) Patient is working with PT and OT for strengthening and mobility. She reports therapy is going good. She utilizes a wheelchair for ambulation. 06/20/2025 Physical deconditioning (ICD-10 - R53.81) Patient is working with PT and OT for strengthening and mobility. She reports therapy is going good. She utilizes a wheelchair for ambulation. 06/20/2025 Other acute osteomyelitis, right ankle and foot (ICD-10 - M86.171) Patient was sent to the emergency room due to severe ankle pain and was found to have osteomyelitis of the right ankle. On 05/20/2025, they removed the medial plate and screws and the lateral plate and screws of the right ankle, which had been placed in August due to an ankle fracture. Blood cultures and wound cultures were negative. Culture of the devices that were removed had staph species noted. Patient is currently on IV vancomycin and IV cefepime with a tentative stop date of 07/06/2025. PICC line in place. Patient had a follow-up appointment with the ID doctor on 06/14/2025. She reports that he is very pleased with her recovery. Patient had a follow-up on 06/09/2025 with her orthopedic doctor and they removed the liz from both sides of her ankles, incision well approximated with some Steri-Strips left in place. No drainage or infection noted. 06/13/2025 Other acute osteomyelitis, right ankle and foot (ICD-10 - M86.171) Patient was sent to the emergency room due to severe ankle pain and was found to have osteomyelitis of the right ankle. On 05/20/2025, they removed the medial plate and screws and the lateral plate and screws of the right ankle, which had been placed in August due to an ankle fracture. Blood cultures and wound cultures were negative. Culture of the devices that were removed had staph species noted. Patient is currently on IV vancomycin and IV cefepime with a tentative stop date of 07/06/2025. PICC line in place. She has a follow-up phone appointment with the infectious disease doctor on 06/14/2025. Patient had a follow-up on 06/09/2025 with her orthopedic doctor and they removed the liz from both sides of her ankles, incision well approximated with some Steri-Strips left in place. No drainage or infection noted. 06/15/2025 Other acute osteomyelitis, right ankle and foot (ICD-10 - M86.171) Patient was sent to the emergency room due to severe ankle pain and was found to have osteomyelitis of the right ankle. On 05/20/2025, they removed the medial plate and screws and the lateral plate and screws of the right ankle, which had been placed in August due to an ankle fracture. Blood cultures and wound cultures were negative. Culture of the devices that were removed had staph species noted. Patient is currently on IV vancomycin and IV cefepime with a tentative stop date of 07/06/2025. PICC line in place. Patient had a follow-up appointment with the ID doctor on 06/14/2025. She reports that he is very pleased with her recovery. Patient had a follow-up on 06/09/2025 with her orthopedic doctor and they removed the liz from both sides of her ankles, incision well approximated with some Steri-Strips left in place. No drainage or infection noted. 06/06/2025 Other acute osteomyelitis, right ankle and foot (ICD-10 - M86.171) Patient was sent to the emergency room due to severe ankle pain and was found to have osteomyelitis of the right ankle. On 05/20/2025, they removed the medial plate and screws and the lateral plate and screws of the right ankle, which had been placed in August due to an ankle fracture. Blood cultures and wound cultures were negative. Culture of the devices that were removed had staph species noted. Patient is currently on IV vancomycin and IV cefepime with a tentative stop date of 07/06/2025. PICC line in place. She has a follow-up phone appointment with the infectious disease doctor on 06/14/2025 and she has a follow-up with her orthopedic doctor on 06/09/2025. 06/02/2025 Other acute osteomyelitis, right ankle and foot (ICD-10 - M86.171) Patient was sent to the emergency room due to severe ankle pain and was found to have osteomyelitis of the right ankle. On 05/20/2025, they removed the medial plate and screws and the lateral plate and screws of the right ankle, which had been placed in August due to an ankle fracture. Blood cultures and wound cultures were negative. Culture of the devices that were removed had staph species noted. Patient is currently on IV vancomycin and IV cefepime with a tentative stop date of 07/06/2025. PICC line in place. She has a follow-up phone appointment with the infectious disease doctor on 06/14/2025 and she has a follow-up with her orthopedic doctor on 06/09/2025. 05/25/2025 Unspecified atrial fibrillation (ICD-10 - I48.91) Rate is controlled. Managed well on current medications. Continue current treatment plan and monitoring. 05/31/2025 Other acute osteomyelitis, right ankle and foot (ICD-10 - M86.171) Patient was sent to the emergency room due to severe ankle pain and was found to have osteomyelitis of the right ankle. On 05/20/2025, they removed the medial plate and screws and the lateral plate and screws of the right ankle, which had been placed in August due to an ankle fracture. Blood cultures and wound cultures were negative. Culture of the devices that were removed had staph species noted. Patient is currently on IV vancomycin and IV cefepime with a tentative stop date of 07/06/2025. PICC line in place. She has a follow-up phone appointment with the infectious disease doctor on 06/14/2025 and she has a follow-up with her orthopedic doctor on 06/09/2025. 05/18/2025 Unspecified atrial fibrillation (ICD-10 - I48.91) Rate is controlled. Managed well on current medications. Continue current treatment plan and monitoring. 05/16/2025 Unspecified atrial fibrillation (ICD-10 - I48.91) Rate is controlled. Managed well on current medications. Continue current treatment plan and monitoring. 05/09/2025 Chronic obstructive pulmonary disease, unspecified (ICD-10 - J44.9) Patient denies any symptoms. Managed well on current medications. Continue current treatment plan and monitoring. Patient seen maintenance apprentice on 04/21/2025 and received new orders for Trelegy Ellipta 100 mcg-62.5 mcg-25 mcg, one puff daily. They also ordered a CBC with differential, which has already been done. An allergy test to be done once she discharges from this facility. 05/04/2025 Chronic obstructive pulmonary disease, unspecified (ICD-10 - J44.9) Patient denies any symptoms. Managed well on current medications. Continue current treatment plan and monitoring. Patient seen maintenance apprentice on 04/21/2025 and received new orders for Trelegy Ellipta 100 mcg-62.5 mcg-25 mcg, one puff daily. They also ordered a CBC with differential, which has already been done. An allergy test to be done once she discharges from this facility. 05/02/2025 Unspecified atrial fibrillation (ICD-10 - I48.91) Rate is controlled. Managed well on current medications. Continue current treatment plan and monitoring. 04/27/2025 Chronic obstructive pulmonary disease, unspecified (ICD-10 - J44.9) Patient denies any symptoms. Managed well on current medications. Continue current treatment plan and monitoring. Patient seen maintenance apprentice on 04/21/2025 and received new orders for Trelegy Ellipta 100 mcg-62.5 mcg-25 mcg, one puff daily. They also ordered a CBC with differential, which has already been done. An allergy test to be done once she discharges from this facility. 04/25/2025 Chronic obstructive pulmonary disease, unspecified (ICD-10 - J44.9) Patient denies any symptoms. Managed well on current medications. Continue current treatment plan and monitoring. Patient seen maintenance apprentice on 04/21/2025 and received new orders for Trelegy Ellipta 100 mcg-62.5 mcg-25 mcg, one puff daily. They also ordered a CBC with differential, which has already been done. An allergy test to be done once she discharges from this facility. 04/21/2025 Unspecified atrial fibrillation (ICD-10 - I48.91) Rate is controlled. Managed well on current medications. Continue current treatment plan and monitoring. 04/19/2025 Chronic obstructive pulmonary disease, unspecified (ICD-10 - J44.9) Patient denies any symptoms. Managed well on current medications. Continue current treatment plan and monitoring. 12/21/2024 Displaced trimalleolar fracture of right lower leg, subsequent encounter for closed fracture with routine healing (ICD-10 - S82.851D) Underwent ORIF on 09/08/[address] Chaudhry. Reports pain is currently controlled. Utilizing wheelchair for ambulation. Continue current treatment plan and monitoring. She reports she does not have to wear the walking boot, the xray showed a fracture that was old. 12/14/2024 Displaced trimalleolar fracture of right lower leg, subsequent encounter for closed fracture with routine healing (ICD-10 - S82.851D) Underwent ORIF on 09/08/[address] Chaudhry. Reports pain is currently controlled. Utilizing wheelchair for ambulation. Continue current treatment plan and monitoring. She reports she does not have to wear the walking boot, the xray showed a fracture that was old. 11/28/2024 Other specified chronic obstructive pulmonary disease (ICD-10 - J44.89) Patient reports resolved. No complaints of shortness of breath. Stable on current medication regimen. Continue current treatment plan and monitoring. 12/07/2024 Acute respiratory failure with hypoxia (ICD-10 - J96.01) Resolved. No issues or concerns noted. 12/07/2024 Displaced trimalleolar fracture of right lower leg, subsequent encounter for closed fracture with routine healing (ICD-10 - S82.851D) Underwent ORIF on 09/08/[address] Chaudhry. Reports pain is currently controlled. Utilizing wheelchair for ambulation. Continue current treatment plan and monitoring. 11/23/2024 Displaced trimalleolar fracture of right lower leg, subsequent encounter for closed fracture with routine healing (ICD-10 - S82.851D) Underwent ORIF on 09/08/[address] Chaudhry. Had a f/u last week and no longer has to wear the walking boot, has a walking shoe in place now. Reports pain is currently controlled. Utilizing wheelchair for ambulation. Continue current treatment plan and monitoring. 11/16/2024 Acute respiratory failure with hypoxia (ICD-10 - J96.01) Resolved. No issues or concerns noted. 11/09/2024 Physical deconditioning (ICD-10 - R53.81) Working with PT/OT. Therapy going well since being total weight bearing to right lower extremity. Utilizing wheelchair for ambulation. Dependent or requires assistance with ADLs. 10/26/2024 Other specified chronic obstructive pulmonary disease (ICD-10 - J44.89) Patient reports resolved. No complaints of shortness of breath. Stable on current medication regimen. Continue current treatment plan and monitoring. 10/19/2024 Displaced trimalleolar fracture of right lower leg, subsequent encounter for closed fracture with routine healing (ICD-10 - S82.851D) Underwent ORIF on 09/08/[address] Chaudhry. Reports another follow up next week, 10/19/24. Reports pain is currently controlled. Remains in walking boot but is non weight bearing. Utilizing wheelchair for ambulation. Continue current treatment plan and monitoring. 10/12/2024 Personal history of (healed) traumatic fracture (ICD-10 - Z87.81) 10/05/2024 Other specified chronic obstructive pulmonary disease (ICD-10 - J44.89) She was seen in the ED yesterday for coughing and SOB, O2 sats 88%. Determined to be possibly be viral bronchites, and not pneumonia she was discharged with predinsone, and advised neb treatments q4hr. 09/28/2024 Essential (primary) hypertension (ICD-10 - I10) BP stable. Well managed on current medication regimen. Continue with current treatment plan and monitoring. 09/28/2024 Anxiety (ICD-10 - F41.9) Denies any issues at this time. Well managed on current medication regimen. Continue with current treatment plan and monitoring. 10/05/2024 Essential (primary) hypertension (ICD-10 - I10) BP elevated today, possbility due to being sick and the prenisone. Continue to monitor, update if continues to be elevate. 10/12/2024 Other specified postprocedural states (ICD-10 - Z98.890) 10/19/2024 Personal history of (healed) traumatic fracture (ICD-10 - Z87.81) 10/26/2024 Displaced trimalleolar fracture of right lower leg, subsequent encounter for closed fracture with routine healing (ICD-10 - S82.851D) Underwent ORIF on 09/08/[address] Chaudhry. Last ortho appointment on 10/19/24. Reports pain is currently controlled. Remains in walking boot is now full weight bearing. Utilizing wheelchair for ambulation. Continue current treatment plan and monitoring. 11/09/2024 Displaced trimalleolar fracture of right lower leg, subsequent encounter for closed fracture with routine healing (ICD-10 - S82.851D) Underwent ORIF on 09/08/[address] Chaudhry. Next ortho appointment on 11/16/24. Reports pain is currently controlled. Remains in walking boot is now full weight bearing. Utilizing wheelchair for ambulation. Continue current treatment plan and monitoring. 11/23/2024 Acute respiratory failure with hypoxia (ICD-10 - J96.01) Resolved. No issues or concerns noted. 11/16/2024 Other specified chronic obstructive pulmonary disease (ICD-10 - J44.89) Patient reports resolved. No complaints of shortness of breath. Stable on current medication regimen. Continue current treatment plan and monitoring. 11/28/2024 Essential (primary) hypertension (ICD-10 - I10) Obtain vitals and fax to office. No complaints of adverse s/s. Well managed on current medication regimen. Continue current treatment plan and monitoring. 12/07/2024 Other specified chronic obstructive pulmonary disease (ICD-10 - J44.89) Patient reports resolved. No complaints of shortness of breath. Stable on current medication regimen. Continue current treatment plan and monitoring. 12/14/2024 Acute respiratory failure with hypoxia (ICD-10 - J96.01) Resolved. No issues or concerns noted. 12/21/2024 Acute respiratory failure with hypoxia (ICD-10 - J96.01) Resolved. No issues or concerns noted. 04/19/2025 Essential (primary) hypertension (ICD-10 - I10) Blood pressure as stable. Managed well on current medications. Continue current treatment plan and monitoring. 04/21/2025 Chronic obstructive pulmonary disease, unspecified (ICD-10 - J44.9) Patient denies any symptoms. Managed well on current medications. Continue current treatment plan and monitoring. Patient has a pulmonology appointment this afternoon. 04/25/2025 Essential (primary) hypertension (ICD-10 - I10) Blood pressure as stable. Managed well on current medications. Continue current treatment plan and monitoring. 05/02/2025 Chronic obstructive pulmonary disease, unspecified (ICD-10 - J44.9) Patient denies any symptoms. Managed well on current medications. Continue current treatment plan and monitoring. Patient seen maintenance apprentice on 04/21/2025 and received new orders for Trelegy Ellipta 100 mcg-62.5 mcg-25 mcg, one puff daily. They also ordered a CBC with differential, which has already been done. An allergy test to be done once she discharges from this facility. 04/27/2025 Essential (primary) hypertension (ICD-10 - I10) Blood pressure as stable. Managed well on current medications. Continue current treatment plan and monitoring. 05/04/2025 Essential (primary) hypertension (ICD-10 - I10) Blood pressure as stable. Managed well on current medications. Continue current treatment plan and monitoring. 05/09/2025 Essential (primary) hypertension (ICD-10 - I10) Blood pressure as stable. Managed well on current medications. Continue current treatment plan and monitoring. 05/16/2025 Chronic obstructive pulmonary disease, unspecified (ICD-10 - J44.9) Patient denies any symptoms. Managed well on current medications. Continue current treatment plan and monitoring. Patient seen maintenance apprentice on 04/21/2025 and received new orders for Trelegy Ellipta 100 mcg-62.5 mcg-25 mcg, one puff daily. They also ordered a CBC with differential, which has already been done. An allergy test to be done once she discharges from this facility. 05/18/2025 Chronic obstructive pulmonary disease, unspecified (ICD-10 - J44.9) Patient denies any symptoms. Managed well on current medications. Continue current treatment plan and monitoring. Patient seen maintenance apprentice on 04/21/2025 and received new orders for Trelegy Ellipta 100 mcg-62.5 mcg-25 mcg, one puff daily. They also ordered a CBC with differential, which has already been done. An allergy test to be done once she discharges from this facility. 05/31/2025 Unspecified atrial fibrillation (ICD-10 - I48.91) Rate is controlled. Managed well on current medications. Continue current treatment plan and monitoring. Patient has a cardiology appointment on 06/05/2025. 05/25/2025 Chronic obstructive pulmonary disease, unspecified (ICD-10 - J44.9) Patient denies any symptoms. Managed well on current medications. Continue current treatment plan and monitoring. Patient seen maintenance apprentice on 04/21/2025 and received new orders for Trelegy Ellipta 100 mcg-62.5 mcg-25 mcg, one puff daily. They also ordered a CBC with differential, which has already been done. An allergy test to be done once she discharges from this facility. 06/02/2025 Unspecified atrial fibrillation (ICD-10 - I48.91) Rate is controlled. Managed well on current medications. Continue current treatment plan and monitoring. Patient has a cardiology appointment on 06/05/2025. 06/06/2025 Unspecified atrial fibrillation (ICD-10 - I48.91) Rate is controlled. Managed well on current medications. Continue current treatment plan and monitoring. Patient had a cardiology appointment on 06/05/2025, patient reports that nothing was changed at the appointment. 06/13/2025 Unspecified atrial fibrillation (ICD-10 - I48.91) Rate is controlled. Managed well on current medications. Continue current treatment plan and monitoring. Patient had a cardiology appointment on 06/05/2025, patient reports that nothing was changed at the appointment. 06/15/2025 Unspecified atrial fibrillation (ICD-10 - I48.91) Rate is controlled. Managed well on current medications. Continue current treatment plan and monitoring. Patient had a cardiology appointment on 06/05/2025, patient reports that nothing was changed at the appointment. 06/20/2025 Unspecified atrial fibrillation (ICD-10 - I48.91) Rate is controlled. Managed well on current medications. Continue current treatment plan and monitoring. Patient had a cardiology appointment on 06/05/2025, patient reports that nothing was changed at the appointment. 06/20/2025 Chronic obstructive pulmonary disease, unspecified (ICD-10 - J44.9) Patient denies any symptoms. Managed well on current medications. Continue current treatment plan and monitoring. 06/15/2025 Chronic obstructive pulmonary disease, unspecified (ICD-10 - J44.9) Patient denies any symptoms. Managed well on current medications. Continue current treatment plan and monitoring. 06/13/2025 Chronic obstructive pulmonary disease, unspecified (ICD-10 - J44.9) Patient denies any symptoms. Managed well on current medications. Continue current treatment plan and monitoring. 06/06/2025 Chronic obstructive pulmonary disease, unspecified (ICD-10 - J44.9) Patient denies any symptoms. Managed well on current medications. Continue current treatment plan and monitoring. 06/02/2025 Chronic obstructive pulmonary disease, unspecified (ICD-10 - J44.9) Patient denies any symptoms. Managed well on current medications. Continue current treatment plan and monitoring. 05/31/2025 Chronic obstructive pulmonary disease, unspecified (ICD-10 - J44.9) Patient denies any symptoms. Managed well on current medications. Continue current treatment plan and monitoring. Patient seen maintenance apprentice on 04/21/2025 and received new orders for Trelegy Ellipta 100 mcg-62.5 mcg-25 mcg, one puff daily. They also ordered a CBC with differential, which has already been done. An allergy test to be done once she discharges from this facility. 05/18/2025 Essential (primary) hypertension (ICD-10 - I10) Blood pressure as stable. Managed well on current medications. Continue current treatment plan and monitoring. 05/25/2025 Essential (primary) hypertension (ICD-10 - I10) Blood pressure as stable. Managed well on current medications. Continue current treatment plan and monitoring. 05/16/2025 Essential (primary) hypertension (ICD-10 - I10) Blood pressure as stable. Managed well on current medications. Continue current treatment plan and monitoring. 05/09/2025 Vitamin D deficiency, unspecified (ICD-10 - E55.9) On 04/14/2025, vitamin D level was within normal limits. Managed well on current medications. Continue current treatment plan and monitoring. 05/02/2025 Essential (primary) hypertension (ICD-10 - I10) Blood pressure as stable. Managed well on current medications. Continue current treatment plan and monitoring. 05/04/2025 Vitamin D deficiency, unspecified (ICD-10 - E55.9) On 04/14/2025, vitamin D level was within normal limits. Managed well on current medications. Continue current treatment plan and monitoring. 04/27/2025 Vitamin D deficiency, unspecified (ICD-10 - E55.9) On 04/14/2025, vitamin D level was within normal limits. Managed well on current medications. Continue current treatment plan and monitoring. 04/25/2025 Vitamin D deficiency, unspecified (ICD-10 - E55.9) On 04/14/2025, vitamin D level was within normal limits. Managed well on current medications. Continue current treatment plan and monitoring. 04/21/2025 Essential (primary) hypertension (ICD-10 - I10) Blood pressure as stable. Managed well on current medications. Continue current treatment plan and monitoring. 12/21/2024 Other specified chronic obstructive pulmonary disease (ICD-10 - J44.89) Patient reports resolved. No complaints of shortness of breath. Stable on current medication regimen. Continue current treatment plan and monitoring. 04/19/2025 Vitamin D deficiency, unspecified (ICD-10 - E55.9) On 04/14/2025, vitamin D level was within normal limits. Managed well on current medications. Continue current treatment plan and monitoring. 12/14/2024 Other specified chronic obstructive pulmonary disease (ICD-10 - J44.89) Patient reports resolved. No complaints of shortness of breath. Stable on current medication regimen. Continue current treatment plan and monitoring. 12/07/2024 Personal history of (healed) traumatic fracture (ICD-10 - Z87.81) 11/28/2024 Anxiety (ICD-10 - F41.9) Continue to monitor pt closely for how her level of anxiety is from day to day. 11/23/2024 Other specified chronic obstructive pulmonary disease (ICD-10 - J44.89) Patient reports resolved. No complaints of shortness of breath. Stable on current medication regimen. Continue current treatment plan and monitoring. 11/16/2024 Personal history of (healed) traumatic fracture (ICD-10 - Z87.81) 11/09/2024 Personal history of (healed) traumatic fracture (ICD-10 - Z87.81) 10/26/2024 Personal history of (healed) traumatic fracture (ICD-10 - Z87.81) 10/19/2024 Other specified postprocedural states (ICD-10 - Z98.890) 10/12/2024 Other specified chronic obstructive pulmonary disease (ICD-10 - J44.89) Complaints of cough, congestion. No complaints of shortness of breath. Stable on current medication regimen. Continue current treatment plan and monitoring. 10/05/2024 Anxiety (ICD-10 - F41.9) Denies any issues at this time. Well managed on current medication regimen. Continue with current treatment plan and monitoring. 10/12/2024 Essential (primary) hypertension (ICD-10 - I10) BP stable and trending at goal. No complaints of adverse s/s. Well managed on current medication regimen. Continue current treatment plan and monitoring. 10/26/2024 Other specified postprocedural states (ICD-10 - Z98.890) 11/09/2024 Other specified postprocedural states (ICD-10 - Z98.890) 10/19/2024 Essential (primary) hypertension (ICD-10 - I10) BP stable and trending at goal. No complaints of adverse s/s. Well managed on current medication regimen. Continue current treatment plan and monitoring. 11/16/2024 Other specified postprocedural states (ICD-10 - Z98.890) 11/23/2024 Personal history of (healed) traumatic fracture (ICD-10 - Z87.81) 11/28/2024 Constipation, unspecified (ICD-10 - K59.00) Well managed on current medication regimen. Continue current treatment plan and monitoring. 12/07/2024 Other specified postprocedural states (ICD-10 - Z98.890) 12/14/2024 Personal history of (healed) traumatic fracture (ICD-10 - Z87.81) 12/21/2024 Personal history of (healed) traumatic fracture (ICD-10 - Z87.81) 04/21/2025 Vitamin D deficiency, unspecified (ICD-10 - E55.9) On 04/14/2025, vitamin D level was within normal limits. Managed well on current medications. Continue current treatment plan and monitoring. 04/25/2025 UTI symptoms (ICD-10 - R39.9) Patient is having frequent urination and burning. 04/27/2025 UTI symptoms (ICD-10 - R39.9) Patient is having frequent urination and burning. Patient was supposed to have a UA C&S done. No results at this time. 05/02/2025 Vitamin D deficiency, unspecified (ICD-10 - E55.9) On 04/14/2025, vitamin D level was within normal limits. Managed well on current medications. Continue current treatment plan and monitoring. 05/04/2025 Cough, unspecified (ICD-10 - R05.9) Patient report she is having a cough again that is productive with clear to white colored sputum. Lung sounds are clear throughout, she denies having any shortness of breath. Patient does have an extensive history of getting pneumonia in the past. Order given today to get a two view chest x-ray and restart DuoNebs q.i.d. scheduled for five more days. And I also ordered to get a CBC, PCT and a sed rate and BMP on next lab day. 05/09/2025 Cough, unspecified (ICD-10 - R05.9) Patient reports cough is doing a little better. The lab work done on 05/05 was relatively negative aside from the ESR was elevated at 120. Order was given at that time to start azithromycin 500 mg x1 day and then 250 mg daily x4 days. Repeat the ESR in one week. 05/16/2025 Vitamin D deficiency, unspecified (ICD-10 - E55.9) On 04/14/2025, vitamin D level was within normal limits. Managed well on current medications. Continue current treatment plan and monitoring. 05/18/2025 Vitamin D deficiency, unspecified (ICD-10 - E55.9) On 04/14/2025, vitamin D level was within normal limits. Managed well on current medications. Continue current treatment plan and monitoring. 05/25/2025 Vitamin D deficiency, unspecified (ICD-10 - E55.9) On 04/14/2025, vitamin D level was within normal limits. Managed well on current medications. Continue current treatment plan and monitoring. 05/31/2025 Essential (primary) hypertension (ICD-10 - I10) Blood pressure as stable. Managed well on current medications. Continue current treatment plan and monitoring. 06/02/2025 Essential (primary) hypertension (ICD-10 - I10) Blood pressure as stable. Managed well on current medications. Continue current treatment plan and monitoring. 06/06/2025 Essential (primary) hypertension (ICD-10 - I10) Blood pressure as stable. Managed well on current medications. Continue current treatment plan and monitoring. 06/15/2025 Essential (primary) hypertension (ICD-10 - I10) Blood pressure as stable. Managed well on current medications. Continue current treatment plan and monitoring. 06/13/2025 Essential (primary) hypertension (ICD-10 - I10) Blood pressure as stable. Managed well on current medications. Continue current treatment plan and monitoring. 06/20/2025 Essential (primary) hypertension (ICD-10 - I10) Blood pressure as stable. Managed well on current medications. Continue current treatment plan and monitoring. 06/20/2025 Vitamin D deficiency, unspecified (ICD-10 - E55.9) On 04/14/2025, vitamin D level was within normal limits. Managed well on current medications. Continue current treatment plan and monitoring. 06/15/2025 Vitamin D deficiency, unspecified (ICD-10 - E55.9) On 04/14/2025, vitamin D level was within normal limits. Managed well on current medications. Continue current treatment plan and monitoring. 06/13/2025 Vitamin D deficiency, unspecified (ICD-10 - E55.9) On 04/14/2025, vitamin D level was within normal limits. Managed well on current medications. Continue current treatment plan and monitoring. 06/06/2025 Vitamin D deficiency, unspecified (ICD-10 - E55.9) On 04/14/2025, vitamin D level was within normal limits. Managed well on current medications. Continue current treatment plan and monitoring. 06/02/2025 Vitamin D deficiency, unspecified (ICD-10 - E55.9) On 04/14/2025, vitamin D level was within normal limits. Managed well on current medications. Continue current treatment plan and monitoring. 05/31/2025 Vitamin D deficiency, unspecified (ICD-10 - E55.9) On 04/14/2025, vitamin D level was within normal limits. Managed well on current medications. Continue current treatment plan and monitoring. 05/18/2025 Right leg pain (ICD-10 - M79.604) Patient has had surgery on that right ankle in the past. She has been having severe pain today. An x-ray was done that did not show any breaks or anything, but I did have some concerns in the x-ray. Staff has been trying to reach out to orthopedics to see what they would like to have done. Patient reports that she may be going to the emergency room to get it checked out. Instructed facility to let the provider know if she does go to the emergency room. 05/16/2025 Cough, unspecified (ICD-10 - R05.9) Patient reports cough is much better, lung sounds are clear. Continue to monitor and update with any changes. 05/09/2025 Overactive bladder (ICD-10 - N32.81) Patient has history of overactive bladder. She reports that she no longer is having any burning with her urination, but she is still having frequency at night. Order was given yesterday 05/08/2025 to increase Oxybutynin to 5 mg b.i.d. 05/02/2025 UTI symptoms (ICD-10 - R39.9) Patient denies having any more issues with urination. A UA was collected on 04/25/2025, which was negative. Continue to monitor and update with any changes. 04/27/2025 Bronchitis (ICD-10 - J40) Patient had a chest x-ray done yesterday 04/26/2025, which showed bronchitis. New order given today for DuoNebs q.i.d. x5 days and then p.r.n. and update if symptoms worsen or do not get any better. 12/21/2024 Other specified postprocedural states (ICD-10 - Z98.890) 12/14/2024 Other specified postprocedural states (ICD-10 - Z98.890) 12/07/2024 Essential (primary) hypertension (ICD-10 - I10) BP stable and trending at goal. No complaints of adverse s/s. Well managed on current medication regimen. Continue current treatment plan and monitoring. 11/28/2024 Unspecified open wound, right lower leg, initial encounter (ICD-10 - S81.801A) Has an appt with Dr. Martinez today to follow-up with wound on right ankle. 11/23/2024 Other specified postprocedural states (ICD-10 - Z98.890) 11/16/2024 Essential (primary) hypertension (ICD-10 - I10) BP stable and trending at goal. No complaints of adverse s/s. Well managed on current medication regimen. Continue current treatment plan and monitoring. 11/09/2024 Essential (primary) hypertension (ICD-10 - I10) BP stable and trending at goal. No complaints of adverse s/s. Well managed on current medication regimen. Continue current treatment plan and monitoring. 10/26/2024 Essential (primary) hypertension (ICD-10 - I10) BP stable and trending at goal. No complaints of adverse s/s. Well managed on current medication regimen. Continue current treatment plan and monitoring. 10/12/2024 Acute non-recurrent maxillary sinusitis (ICD-10 - J01.00) Complaints of sinus pressure, nasal drainage, cough and congestion along with swollen lymph nodes. Keflex has not been improving symptoms. DC Keflex and start doxycycline 100mg PO BID x 10 days. Probiotic PO BID x 14 days. 10/12/2024 Mass of jaw (ICD-10 - M27.8) Placed on Keflex earlier this week for concerns of abscess or infection. Patient reports no change in starting antibiotics but no worsening. Patient does have complaints of cough, sore throat, sinus pressure and congestion. Also complaints of headaches. Strep test negative. 11/23/2024 Essential (primary) hypertension (ICD-10 - I10) BP stable and trending at goal. No complaints of adverse s/s. Well managed on current medication regimen. Continue current treatment plan and monitoring. 12/07/2024 Cough, unspecified (ICD-10 - R05.9) Has a loose sounding non-productive cough, chest xray was done yesterday which was negative. Order was given for duonebs QID x 5 days, mucinex 1 tab BID x 5 days, and a medrol dose pack. 12/14/2024 Essential (primary) hypertension (ICD-10 - I10) BP stable and trending at goal. No complaints of adverse s/s. Well managed on current medication regimen. Continue current treatment plan and monitoring. 12/21/2024 Essential (primary) hypertension (ICD-10 - I10) BP stable and trending at goal. No complaints of adverse s/s. Well managed on current medication regimen. Continue current treatment plan and monitoring. 05/02/2025 Bronchitis (ICD-10 - J40) Patient denies having any cough at this time. X-ray done on 04/26/2025 did show bronchitis. She reports she is doing much better. 05/18/2025 Overactive bladder (ICD-10 - N32.81) Patient has history of overactive bladder. She reports that she no longer is having any burning with her urination, but she is still having frequency at night. Order was given on 05/08/2025 to increase Oxybutynin to 5 mg b.i.d. 05/16/2025 Overactive bladder (ICD-10 - N32.81) Patient has history of overactive bladder. She reports that she no longer is having any burning with her urination, but she is still having frequency at night. Order was given on 05/08/2025 to increase Oxybutynin to 5 mg b.i.d. 12/21/2024 Cough, unspecified (ICD-10 - R05.9) Reports cough is much better, just has an occasional non-productive cough. 12/14/2024 Cough, unspecified (ICD-10 - R05.9) Reports cough is much better, just has an occasional non-productive cough. 12/07/2024 Constipation, unspecified (ICD-10 - K59.00) Reports she is constipated and is very uncomfortable. Order given for Senna Plus 1 tab daily. 10/12/2024 Swelling, lymph nodes (ICD-10 - R59.9) Obtain left neck ultrasound. 12/14/2024 Constipation, unspecified (ICD-10 - K59.00) Denies any issues at this time. 12/21/2024 Constipation, unspecified (ICD-10 - K59.00) Denies any issues at this time. 09/28/2024 Other Continue current treatment plan.Staff to continue to monitor and report any changes.Patient education provided and questions/concern s addressed.Follow up in one week unless necessary sooner.Please refer to facility EHR for current and accurate medication list and treatments. Draw CBC, CMP, and Vit D on next lab day. 10/05/2024 Other Continue curren t treatment plan.Staff to continue to monitor and report any changes.Patient education provided and questions/concern s addressed.Follow up in one week unless necessary sooner.Please refer to facility EHR for current and accurate medication list and treatments. 10/12/2024 Other Continue curren t treatment plan.Staff to continue to monitor and report any changes.Patient education provided and questions/concern s addressed.Follow up in one week unless necessary sooner.Please refer to facility EHR for current and accurate medication list and treatments. 10/19/2024 Other Continue curren t treatment plan.Staff to continue to monitor and report any changes.Patient education provided and questions/concern s addressed.Follow up in one week unless necessary sooner.Please refer to facility EHR for current and accurate medication list and treatments. 10/26/2024 Other Continue curren t treatment plan.Staff to continue to monitor and report any changes.Patient education provided and questions/concern s addressed.Follow up in one week unless necessary sooner.Please refer to facility EHR for current and accurate medication list and treatments. Reviewed HIPAA Right to Privacy Practices with patient/family/ca regiver. 11/09/2024 Other Continue curren t treatment plan.Staff to continue to monitor and report any changes.Patient education provided and questions/concern s addressed.Follow up in one week unless necessary sooner.Please refer to facility EHR for current and accurate medication list and treatments.Review ed HIPAA Right to Privacy Practices with patient/family/ca regiver. 11/16/2024 Other Continue curren t treatment plan.Staff to continue to monitor and report any changes.Patient education provided and questions/concern s addressed.Follow up in one week unless necessary sooner.Please refer to facility EHR for current and accurate medication list and treatments.Review ed HIPAA Right to Privacy Practices with patient/family/ca regiver. 11/23/2024 Other Continue curren t treatment plan.Staff to continue to monitor and report any changes.Patient education provided and questions/concern s addressed.Follow up in one week unless necessary sooner.Please refer to facility EHR for current and accurate medication list and treatments.Review ed HIPAA Right to Privacy Practices with patient/family/ca regiver. 11/28/2024 Other Continue current treatment plan. Staff to continue to monitor and report any changes. Patient education provided and questions/concern s addressed. Follow up in one week unless necessary sooner. 12/07/2024 Other Continue current treatment plan.Staff to continue to monitor and report any changes.Patient education provided and questions/concern s addressed.Follow up in one week unless necessary sooner. Reviewed HIPAA Right to Privacy Practices with patient/family/ca regiver. 12/14/2024 Other Continue current treatment plan.Staff to continue to monitor and report any changes.Patient education provided and questions/concern s addressed.Follow up in one week unless necessary sooner. Reviewed HIPAA Right to Privacy Practices with patient/family/ca regiver. 12/21/2024 Other Ok to discharge patient with current in house treatment plan and medications. Patient education provided and all questions/concern s addressed. Home health nurse, PT/OT to see. Follow up with PCP in one week. Reconciled home medications list sent home with patient. Reviewed HIPAA Right to Privacy Practices with patient/family/ca regiver. 04/19/2025 Other Continue curren t treatment plan.Staff to continue to monitor and report any changes.Patient education provided and questions/concern s addressed.Follow up in one week unless necessary sooner. 04/21/2025 Other Continue curren t treatment plan.Staff to continue to monitor and report any changes.Patient education provided and questions/concern s addressed.Follow up in one week unless necessary sooner. 04/25/2025 Other Continue curren t treatment plan.Staff to continue to monitor and report any changes.Patient education provided and questions/concern s addressed.Follow up in one week unless necessary sooner. 04/27/2025 Other Continue curren t treatment plan.Staff to continue to monitor and report any changes.Patient education provided and questions/concern s addressed.Follow up in one week unless necessary sooner. 05/02/2025 Other Continue curren t treatment plan.Staff to continue to monitor and report any changes.Patient education provided and questions/concern s addressed.Follow up in one week unless necessary sooner. 05/04/2025 Other Continue curren t treatment plan.Staff to continue to monitor and report any changes.Patient education provided and questions/concern s addressed.Follow up in one week unless necessary sooner. 05/09/2025 Other Continue curren t treatment plan.Staff to continue to monitor and report any changes.Patient education provided and questions/concern s addressed.Follow up in one week unless necessary sooner. 05/16/2025 Other Continue curren t treatment plan.Staff to continue to monitor and report any changes.Patient education provided and questions/concern s addressed.Follow up in one week unless necessary sooner. 05/18/2025 Other Continue curren t treatment plan.Staff to continue to monitor and report any changes.Patient education provided and questions/concern s addressed.Follow up in one week unless necessary sooner. 05/25/2025 Other Continue curren t treatment plan.Staff to continue to monitor and report any changes.Patient education provided and questions/concern s addressed.Follow up in one week unless necessary sooner. 05/31/2025 Other Continue curren t treatment plan.Staff to continue to monitor and report any changes.Patient education provided and questions/concern s addressed.Follow up in one week unless necessary sooner. 06/02/2025 Other Continue curren t treatment plan.Staff to continue to monitor and report any changes.Patient education provided and questions/concern s addressed.Follow up in one week unless necessary sooner. 06/06/2025 Other Continue curren t treatment plan.Staff to continue to monitor and report any changes.Patient education provided and questions/concern s addressed.Follow up in one week unless necessary sooner. 06/13/2025 Other Continue curren t treatment plan.Staff to continue to monitor and report any changes.Patient education provided and questions/concern s addressed.Follow up in one week unless necessary sooner. 06/15/2025 Other Continue curren t treatment plan.Staff to continue to monitor and report any changes.Patient education provided and questions/concern s addressed.Follow up in one week unless necessary sooner. 06/20/2025 Other Continue curren t treatment plan.Staff to continue to monitor and report any changes.Patient education provided and questions/concern s addressed.Follow up in one week unless necessary sooner. Plan Of Treatment Next Appt Details Provider Name:Chanda Esquivel , 06/27/2025 07:15:00 AM, [address], [place], [address], Insurance Providers Payer Name Payer Address Payer Phone Subscriber Number Group Number Insured Name Patient Relationship to Insured Coverage Start Date Coverage End Date Medicare of [place] [address] [facility] [place] [id number] ErenEmberChristiana Self - patient is the insured [place] of [address] [id number] Daphne Jasona Self - patient is the insured Medical (General) History Medical History History ICD Code Unspecified atrial fibrillation I48.91 Chronic obstructive pulmonary disease, u nspecified J44.9 Atherosclerosis of [place] co ronary artery of [place] heart without angina pectoris I25.10 Cognitive communication deficit R41.841 Need for assistance with personal care Z 74.1 Muscle weakness (generalized) M62.81 Essential (primary) hypertension I10 Unspecified abnormalities of gait and mo bility R26.9 Unspecified macular degeneration H35.30 Weakness R53.1 Unspecified fall, subsequent encounter W 19.XXXD Panniculitis, unspecified M79.3 Anxiety disorder, unspecified F41.9 Vitamin deficiency, unspecified E56.9 Depression, unspecified F32.A Pain, unspecified R52 Overactive bladder N32.81 Constipation, unspecified K59.00 Rash and other nonspecific skin eruption R21 Vitamin D deficiency, unspecified E55.9 Surgical History Surgery Date(Month/Year) ankle fracture 09/08/2024 discission, 2nd cataract replacement total knee 2020 colonoscopy flx dx w/collj spec when sheldon cruz 09/16/2013 colonoscopy flx dx w/collj spec when pfr 09/16/2013 colonoscopy nephrectomy panniculectomy exc skin malig hernia repair kidney surgery replacement total knee back surgery cholecystectomy tonsillectomy
--- OUTSIDE RECORDS SUMMARY | 2025-06-22 18:35 | XMS_ITS | Encounter Summary ---
Author Organization [facility] Address [address] [place] [address] Care Team Providers Care Receiver/Laborer Name Role Phone Manas Sosa MD Primary Care Provider + Agueda Luna RN Unavailable Encounter Details Date Type Department Care Team (Late st Contact Info) Description 06/05/2025 Lab Requisition [facility] [address] [place], [place] [id number] Maximiliano Montoya DO [address] [place] [id number] Social History Tobacco Use Types Packs/Day Years Used Date Smoking Tobacco: Former Cigarettes Q uit: 08/17/1969 Smokeless Tobacco: Never Alcohol Use Standard Drinks/Week Comments No 0 (1 standard drink = 0.6 oz pur e alcohol) Comments No Sex and Gender Information Value Date Recorded Sex Assigned at Not on file Legal Sex 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 Gender Identity Not on file Sexual Orientation [...] Associated Diagnosis Comments VANCOMYCIN LEVEL TROUGH STAT 06/05/2025 8:00 AM CDT documented in this encounter Results * VANCOMYCIN LEVEL TROUGH (06/05/2025 8:00 AM CDT) Vancomycin Trough 14.9 10.0 - 20.0 ug/mL 06/05/2025 5:33 PM CDT [facility] Blood BLOOD SPECIMEN / Unknown Venipuncture / Unknown 06/05/2025 8:00 AM CDT 06/05/2025 5:05 PM CDT Maximiliano Montoya DO LAB - CHEMISTRY ORDERABLES Final Result [facility] [address] [place] [address] documented in this encounter Visit Diagnoses Not on filedocumented in this encounter Care Teams Receiver/Laborer Relationship Specialty Start Date End Date Manas Sosa MD [address] [place] [phone] PCP - General Internal Medicine 02/09/14 Agueda Luna, RN [place] 03/16/14 documented as of this encounter
--- OUTSIDE RECORDS SUMMARY | 2025-06-22 18:35 | XMS_ITS | Encounter Summary ---
Author Organization [facility] Address [address] [place] [address] Care Team Providers Care Ferry Operator Name Role Phone Manas Sosa MD Primary Care Provider + Agueda Luna RN Unavailable Encounter Details Date Type Department Care Team (Late st Contact Info) Description 06/12/2025 Lab Requisition [facility] [address] [place], [place] [id number] Maximiliano Montoya DO [address] [place] [phone] Social History Tobacco Use Types Packs/Day Years Used Date Smoking Tobacco: Former Cigarettes Q uit: 08/17/1969 Smokeless Tobacco: Never Alcohol Use Standard Drinks/Week Comments No 0 (1 standard drink = 0.6 oz pur e alcohol) Comments No Sex and Gender Information Value Date Recorded Sex Assigned at Not on file 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 Gender Identity Not on file Sexual [...] Associated Diagnosis Comments VANCOMYCIN LEVEL TROUGH STAT 06/12/2025 8:00 AM CDT documented in this encounter Results * VANCOMYCIN LEVEL TROUGH (06/12/2025 8:00 AM CDT) Vancomycin Trough 17.4 10.0 - 20.0 ug/mL 06/12/2025 6:45 PM CDT [facility] Blood BLOOD SPECIMEN / Unknown Venipuncture / Unknown 06/12/2025 8:00 AM CDT 06/12/2025 6:12 PM CDT Maximiliano Montoya DO LAB - CHEMISTRY ORDERABLES Final Result [facility] [address] [place] [address] documented in this encounter Visit Diagnoses Not on filedocumented in this encounter Care Teams Ferry Operator Relationship Specialty Start Date End Date Manas Sosa MD [address] [place] [phone] PCP - General Internal Medicine 02/09/14 Agueda Luna, RN Night Warehouse Manager 03/16/14 documented as of this encounter
--- OUTSIDE RECORDS SUMMARY | 2025-06-22 18:35 | XMS_ITS | Encounter Summary ---
Author Organization [facility] Address [address] [place] [address] Care Team Providers Care Public Housing Manager Name Role Phone Manas Sosa MD Primary Care Provider + Agueda Luna RN Unavailable Encounter Details Date Type Department Care Team (Late st Contact Info) Description 05/25/2025 Lab Requisition [facility] [address] [place], [place] [id number] Maximiliano Montoya DO [address] [place] [phone] Social History Tobacco Use Types Packs/Day Years Used Date Smoking Tobacco: Former Cigarettes Q uit: 08/17/1969 Smokeless Tobacco: Never Alcohol Use Standard Drinks/Week Comments No 0 (1 standard drink = 0.6 oz pur e alcohol) Comments No Sex and Gender Information Value Date Recorded Sex Assigned at Not on file 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 Sex Female 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 Gender Identity Not on file Sexual Orientation [...] Associated Diagnosis Comments VANCOMYCIN LEVEL TROUGH STAT 05/25/2025 8:00 AM CDT documented in this encounter Results * VANCOMYCIN LEVEL TROUGH (05/25/2025 8:00 AM CDT) Vancomycin Trough 10.5 10.0 - 20.0 ug/mL 05/25/2025 3:09 PM CDT [facility] Blood BLOOD SPECIMEN / Unknown Venipuncture / Unknown 05/25/2025 8:00 AM CDT 05/25/2025 2:40 PM CDT Maximiliano Montoya DO LAB - CHEMISTRY ORDERABLES Final Result [facility] [address] [place] [address] documented in this encounter Visit Diagnoses Not on filedocumented in this encounter Care Teams Public Housing Manager Relationship Specialty Start Date End Date Manas Sosa MD [address] [place] [phone] PCP - General Internal Medicine 02/09/14 Agueda Luna, RN Regrinder Operator 03/16/14 documented as of this encounter
--- OUTSIDE RECORDS SUMMARY | 2025-06-22 18:35 | XMS_ITS | Clinical Summary ---
Author Organization [facility] Address [address], [address] [place] [address] Phone Care Team Providers Care Assistant Golf Coach Name Role Phone Amber Taylor MD Primary Care Provider [phone] Gabriel Martin MD Unavailable [phone] Allergies Active Allergy Reactions Criticality Noted Date Comments Ciprofloxacin Unknown 08/26/2018 Mood, behavior Dextromethorphan Other (see Comments) 09/12/2024 Dextromethorphan-Guaifenes in Other (see Comments) Medium 05/25/2023 States she does not feel right when she takes it Penicillins Hives 05/18/2013 Sulfa Antibiotics Hives 05/18/2013 Medications aMILoride (MIDAMOR) 5 MG Tablet 3 Active DilTIAZem HCl Coated Beads 360 MG CAPSULE SR 24 HR TAKE 1 CAPSULE BY MOUTH ONCE DAILY FOR HIGH BLOOD PRESSURE 3 Active Multivitamin-Mi nerals (Macular Vitamin Benefit) Tablet Take 1 Tablet by mouth daily. 9 Active vitamin E 100 UNIT Capsule Take 100 Units by mouth. Active Escitalopram Oxalate 5 MG Tablet TAKE 1 TABLET BY MOUTH ONCE DAILY FOR DEPRESSION 3 Active ascorbic acid 500 MG Tablet Take 1,000 mg by mouth. 9 Active Vitamin D3 (CHOLECALCIFERO L) 125 MCG Tablet Take 2,000 Units by mouth. 1 Active aspirin EC 81 MG Tablet Delayed Response Take 81 mg by mouth daily. Active gabapentin (NEURONTIN) 100 MG Capsule Take 100 mg by mouth 2 times daily. 3 Active albuterol 108 (90 Base) MCG/ACT Aerosol Solution take 2 Puffs by inhalation every 4 hours as needed. 3 Active methocarbamol (ROBAXIN) 750 MG Tablet Take 750 mg by mouth. 4 Active montelukast (SINGULAIR) 10 MG Tablet TAKE 1 TABLET BY MOUTH NIGHTLY AT BEDTIME Active oxybutynin (DITROPAN) 5 MG Tablet Take 5 mg by mouth daily. Active lisinopril (PRINIVIL, ZESTRIL) 10 MG Tablet Take 5 mg by mouth. 4 Active Ferrous Sulfate (IRON PO) Take by mouth. Activ e apixaban (ELIQUIS) 5 MG Tablet 5 mg. 4 Active Ferrous Sulfate 325 (65 Fe) MG Tablet Delayed Response Take by mouth. Thursday and Active nystatin (MYCOSTATIN) 527069 UNIT/GM Cream APPLY A SMALL AMOUNT OF CREAM TOPICALLY TO AFFECTED AREA TWICE DAILY 5 Active Trelegy Ellipta 100-62.5-25 MCG/ACT AEROSOL POWDER, BREATH ACTIVATED take 1 Puff by inhalation. 5 Active Active Problems Problem Noted Date Diagnosed Date Iron deficiency anemia 01/30/2025 HTN (hypertension) 06/30/2024 Encounters Date Type Department Care Team Description 04/27/2025 2:00 PM CDT Clinical Support [facility] [address] [place] [phone] Nurse, Cc Cullen Iron deficiency anemia, unspecified iron deficiency anemia type 04/27/2025 1:30 PM CDT Office Visit [facility] [address] [place] [phone] Gabriel Martin MD Iron deficiency anemia, unspecified iron deficiency anemia type (Primary Dx) 04/27/2025 Travel from Last 3 Months Family History Relation Name Status Comments Child 1 Alive Child 2 Alive Child 3 Alive Father Mother Sister Social History Tobacco Use Types Packs/Day Years Used Date Smoking Tobacco: Never Smokeless Tobacco: Never Tobacco Cessation:Counseling Given: Not Answered Alcohol Use Standard Drinks/Week Comments Yes 1 (1 standard drink = 0.6 oz pur e alcohol) Comments Unknown Sex and Gender Information Value Date Recorded Sex Assigned at Not on file Legal Sex Female 2:55 PM CDT Gender Identity Not on file Sexual Orientation Not on file Last Filed Vital Signs Vital Sign Reading Time Taken Comments Blood Pressure 108/68 04/27/2025 1:29 PM CDT Pulse 73 04/27/2025 1:29 PM CDT Temperature 36.7 C (98 F) 04/27/2025 1:29 PM CDT Respiratory Rate 20 04/27/2025 1:29 PM CDT Oxygen Saturation 93% 04/27/2025 1:29 PM CDT Inhaled Oxygen Concentration - - Weight 92.5 kg (204 lb) 01/26/2025 1:35 PM CDT Height 147.3 cm (4' 10) 04/27/2025 1:29 PM CDT Body Mass Index 42.64 01/26/2025 1:35 PM CDT Plan of Treatment Upcoming Encounters Date Type Department Care Team (Late st Contact Info) Description 07/27/2025 1:30 PM DOWEL INSPECTOR Office Visit [facility] [address] [address] Gabriel Martin MD [address] [place] [phone] Health Maintenance Due Date Last Done Comments Hepatitis C Virus (HCV) Screening 1945 Medicare Initial AWV [id number] 07/17/2009 Influenza Immunization (#1) 2025 01/0 04/2025, 05/25/2023, 05/27/2021, Additional history exists SARS-COV-2 Immunization ( season) 2025 01/24/2022, 08/07/2021, 09/12/2020, Additional history exists DEXA Bone Density 06/22/2026 06/22/2024 Pneumococcal Immunization (50+ years) Completed 05/30/2019, 09/17/2016, 07/07/2014 DTaP/Tdap/Td Immunization Discontinued 03/18/2024, Respiratory Syncytial Virus (RSV) Immunization (Adult) Completed 03/18/2024 TdaP Immunization Completed 03/18/2024 Zoster Immunization Completed 07/24/2024, Hepatitis B Immunization Aged Out No longer eligible based on patient's age to complete this topic Human Papillomavirus (HPV) Immunization Aged Out No longer eligible based on patient's age to complete this topic Meningococcal Immunization (ACWY) Aged Out No longer eligible based on patient's age to complete this topic Rotavirus Immunization Aged Out No lo nger eligible based on patient's age to complete this topic Procedures Procedure Name Priority Date/Time Associated Diagnosis Comments SERUM FREE LIGHT CHAINS, OH Routine 04/27/2025 2:09 PM CDT CBC WITH AUTO DIFF OH Routine 04/27/2025 2:09 PM CDT CMP (COMPREHENSIVE METABOLIC PANEL) Routine 04/27/2025 2:09 PM CDT Iron deficiency anemia, unspecified iron deficiency anemia type ELECTROPHORESIS W/ TOTAL PROTEIN SERUM Routine 04/27/2025 2:09 PM CDT Iron deficiency anemia, unspecified iron deficiency anemia type IMMUNOFIXATION, SERUM OH Routine 04/27/2025 2:09 PM CDT Iron deficiency anemia, unspecified iron deficiency anemia type IMMUNOGLOBULIN IGA, IGG & IGM QUANT Routine 04/27/2025 2:09 PM CDT Iron deficiency anemia, unspecified iron deficiency anemia type VITAMIN B12 Routine 04/27/2025 2:09 PM CDT Iron deficiency anemia, unspecified iron deficiency anemia type FOLIC ACID (FOLATE) Routine 04/27/2025 2 :09 PM CDT Iron deficiency anemia, unspecified iron deficiency anemia type FERRITIN Routine 04/27/2025 2:09 PM CDT Iron deficiency anemia, unspecified iron deficiency anemia type IRON W/ IRON BINDING CAPACITY OH Routine 04/27/2025 2:09 PM CDT Iron deficiency anemia, unspecified iron deficiency anemia type RETICULOCYTE COUNT (RETIC) Routine 04/27/2025 2:09 PM CDT Iron deficiency anemia, unspecified iron deficiency anemia type from Last 3 Months Results * (ABNORMAL) SERUM FREE LIGHT CHAINS, OH (04/27/2025 2:09 PM CDT) FREE KAPPA LT CHAINS 81.2(H) 2.9 - 20.7 mg/L [facility] FREE LAMBDA LT CHAINS 57.3(H) 4.2 - 27.6 mg/L [facility] KAPPA/LAMBDA RATIO 1.42 0.22 - 1.74 [facility] 04/27/2025 2:09 PM CDT Narrative [facility] - 04/28/2025 1:19 PM CDT Release to patient->Immediate Gabriel Martin MD LAB SEND OUTS Final Resul t Performing Organization Address City/[facility]/ZIP Co de Phone Number [facility] [address] [place] [address], [place] [phone] * (ABNORMAL) IRON W/ IRON BINDING CAPACITY [place] (04/27/2025 2:09 PM CDT) IRON 39(L) 50 - 212 ug/dL [facility] UIBC 172 155 - 355 ug/dL [facility] TIBC 211(L) 261 - 478 ug/dl [facility] % Saturation 18(L) 20 - 50 % [facility] 04/27/2025 2:09 PM CDT [facility] - 04/28/2025 10:20 AM CDT Release to patient->Immediate us Gabriel Martin MD LAB SEND OUTS Final Resul t [facility] [address] [place] [address], [place] [phone] * IMMUNOFIXATION, SERUM [place] (04/27/2025 2:09 PM CDT) Pathologist [facility] IMMUNOFIXATION RESULT, SERUM COMMENT [facility] Comment:NO MONOCLONALITY DET ECTED. 04/27/2025 2:09 PM CDT Narrative [facility] - 05/01/2025 10:07 AM CDT TESTING PERFORMED AT: [] [facility], [address] [place] [address], [place], [address], PHONE: [phone], DISTRIBUTION AGENT: CHAD HENRY, PHD Release to patient->Immediate us Gabriel Martin MD LAB SEND OUTS Final Resul t Performing Organization Address City/State/[facility] Co de Phone Number [facility] [address] [place] [address], [place] [phone] * (ABNORMAL) CBC WITH AUTO DIFF [place] (04/27/2025 2:09 PM CDT) Pathologist [facility] WBC 7.3 4.0 - 10.0 10*3/uL [facility] HGB 10.4(L) 11.2 - 15.7 g/dL [facility] HCT 34.0(L) 34.1 - 44.9 % [facility] PLT 109(L) 163 - 369 10*3/uL [facility] MPV 10.7 9.4 - 12.4 fL [facility] RBC 3.68(L) 3.93 - 5.22 10*6/uL [facility] MCV 92 79 - 95 fL [facility] MCH 28.3 25.6 - 32.2 pg [facility] MCHC 30.6(L) 32.2 - 36.5 g/dL [facility] RDW 18.2(H) 11.6 - 14.4 % [facility] Neutrophils % 69.4(H) 36.0 - 66.0 % [facility] Lymphocytes % 14.9(L) 19.0 - 40.0 % [facility] Monocytes % 12.7(H) 4.1 - 12.1 % [facility] Eosinophils % 2.2 0.0 - 3.5 % [facility] Basophils % 0.1 0.0 - 1.0 % [facility] Absolute Neutrophils 5.0 1.4 - 6.6 10*3/uL [facility] Absolute Lymphocytes 1.1 0.8 - 4.0 10*3/uL [facility] Absolute Monocytes 0.9 0.2 - 1.2 10*3/uL [facility] Absolute Eosinophils 0.2 0.0 - 0.4 10*3/uL [facility] Absolute Basophils 0.0 0.0 - 0.1 10*3/uL [facility] 04/27/2025 2:09 PM CDT us Gabriel Martin MD LAB SEND OUTS Final Resul t [facility] Cancer Care [facility] [address] [place] [address], [place] [phone] * VITAMIN B12 (04/27/2025 2:09 PM CDT) Vitamin B12 321 180 - 914 pg/mL [facility] Blood 04/27/2025 2:09 PM CDT Narrative [facility] - 04/28/2025 2:00 PM CDT Release to patient->Immediate us Gabriel Martin MD CHEMISTRY ORDERABLES Final Result [facility] [address] [place] [address], [place] [phone] * (ABNORMAL) RETICULOCYTE COUNT (RETIC) (04/27/2025 2:09 PM CDT) Reticulocyte count 2.30(H) 0.50 - 1.70 % [facility] RET-He 31.70 28.20 - 36.60 pg [facility] Comment: RET-He is a direct assessment of incorporation of iron into erythrocyte hemoglobin. It provides an indirect measure of the iron available for new erythropoiesis over past 2-4 days. Blood 04/27/2025 2:09 PM CDT Narrative [facility] - 04/27/2025 3:30 PM CDT Release to patient->Immediate us Gabriel Martin MD HEMATOLOGY ORDERABLES Final Result Performing Organization Address [facility] Co de Phone Number [facility] Cancer Care [address] [place] [address], * IMMUNOGLOBULIN IGA, IGG & IGM QUANT (04/27/2025 2:09 PM CDT) IGG 1,655 635 - 1,741 mg/dL [facility] IGA 200 66 - 433 mg/dL [facility] IGM 73 45 - 281 mg/dL [facility] Blood 04/27/2025 2:09 PM CDT [facility] - 04/28/2025 1:19 PM CDT Release to patient->Immediate IS THE PATIENT REQUIRED TO BE FASTING FOR 12 HOURS?->No us Gabriel Martin MD CHEMISTRY ORDERABLES Final Result Performing Organization Address [facility] Co de Phone Number [facility] Cancer Care [address] [place] [address], * FOLIC ACID (FOLATE) (04/27/2025 2:09 PM CDT) Folate >20.00 >=5.90 ng/mL [facility] Blood 04/27/2025 2:09 PM CDT Narrative [facility] - 04/28/2025 2:00 PM CDT Release to patient->Immediate us Gabriel Martin MD CHEMISTRY ORDERABLES Final Result [facility] [address] [place] [address], [place] [phone] * FERRITIN (04/27/2025 2:09 PM CDT) Ferritin 215 11 - 307 ng/mL [facility] Blood 04/27/2025 2:09 PM CDT Narrative [facility] - 04/28/2025 2:00 PM CDT Release to patient->Immediate us Gabriel Martin MD CHEMISTRY ORDERABLES Final Result Performing Organization Address City/[facility]/ZIP Co de Phone Number [facility] [address] [place] [address], [place] [phone] * ELECTROPHORESIS W/ TOTAL PROTEIN SERUM (04/27/2025 2:09 PM CDT) PROTEIN, TOTAL, SERUM 6.8 6.0 - 8.5 G/DL [facility] ALBUMIN 3.1 2.9 - 4.4 G/DL [facility] [id number] 0.3 0.0 - 0.4 G/DL [facility] [id number] 0.8 0.4 - 1.0 G/DL [facility] BETA GLOBULIN 0.9 0.7 - 1.3 G/DL [facility] GAMMA GLOBULIN 1.7 0.4 - 1.8 G/DL [facility] M-SPIKE NOT OBSERVED NOT OBSERVED G/DL [facility] GLOBULIN, TOTAL 3.7 2.2 - 3.9 G/DL [facility] A/G RATIO 0.8 0.7 - 1.7 [facility] PLEASE NOTE: COMMENT [facility] Comment: PROTEIN ELECTROPHORESIS SCAN WILL FOLLOW VIA COMPUTER, MAIL, OR SEMICONDUCTOR WAFERS TESTER DELIVERY. PDF . [facility] Blood 04/27/2025 2:09 PM CDT Narrative [facility] - 04/28/2025 1:08 PM CDT TESTING PERFORMED AT: [] LAB[address], [address], PHONE: [phone], DISTRIBUTION AGENT: CHAD HENRY, PHD Release to patient->Immediate Gabriel Martin MD CHEMISTRY ORDERABLES Final Result [facility] [place] [address], * (ABNORMAL) CMP (COMPREHENSIVE METABOLIC PANEL) (04/27/2025 2:09 PM CDT) Glucose 108(H) 70 - 105 mg/dL [facility] Blood Urea Nitrogen 18 7 - 25 mg/dL [facility] Creatinine 1.0 0.6 - 1.2 mg/dL [facility] Sodium 137 136 - 145 mEq/L [facility] Potassium 4.2 3.5 - 5.1 mEq/L [facility] Chloride 100 98 - 107 mEq/L [facility] Bicarbonate 29 21 - 31 mEq/L [facility] Total Bilirubin 0.5 0.3 - 1.0 mg/dL [facility] Alk. Phosphatase 100 34 - 104 U/L [facility] Aspartate Aminotransferase 13 13 - 39 U/L [facility] Alanine Aminotransferase 11 7 - 52 U/L [facility] Total Protein 6.9 6.4 - 8.9 g/dL [facility] Albumin 3.6 3.5 - 5.7 g/dL [facility] Calcium 9.0 8.6 - 10.3 mg/dL [facility] Anion Gap 12.2 7.0 - 15.0 mEq/L [facility] Globulin 3.3 2.0 - 3.5 g/dL [facility] EGFR 56(L) >60 ml/min/1. 73m2 [facility] Comment: This eGFR is calculated using 2020 CKD-EPI Creatinine equation without race modifier based on the NKF-ASN task force recommendations Equation: lJAT=321*min(SCr/k,1)a*max(SCr/k,1)-1.200*0.9938Age*1.012 (if female), where SCr is serum creatinine, k is 0.7 for females and 0.9 for males, and a is -0.241 for females and -0.302 for males Blood 04/27/2025 2:09 PM CDT Narrative [facility] - 04/28/2025 10:20 AM CDT Release to patient->Immediate IS THE PATIENT REQUIRED TO BE FASTING FOR 8 HOURS?->No Gabriel Martin MD CHEMISTRY ORDERABLES Final Result [facility] [place] [address], from Last 3 Months Insurance MEDICARE [facility] [place] [address] Care Teams Assistant Golf Coach Relationship Specialty [place] [address] [facility] [address] [place] [address] PCP - General Family Medicine 06/04/23 [place] [address] [address] [facility] [address] [place] [address] Consulting Physician Oncology 06/04/23
--- OUTSIDE RECORDS SUMMARY | 2025-06-22 18:35 | XMS_ITS | Encounter Summary ---
Author Organization [facility] Address [address] [place] [address] Care Team Providers Care Triage Registered Nurse Name Role Phone Manas Sosa MD Primary Care Provider + Agueda Luna RN Unavailable Encounter Details Date Type Department Care Team (Late st Contact Info) Description 06/15/2025 Lab Requisition [facility] [address] [place] [address] Maximiliano Montoya DO [address] [place] [address] Social History Tobacco Use Types Packs/Day Years Used Date Smoking Tobacco: Former Cigarettes Q uit: 08/17/1969 Smokeless Tobacco: Never Alcohol Use Standard Drinks/Week Comments No 0 (1 standard drink = 0.6 oz pur e alcohol) Comments No Sex and Gender Information Value Date Recorded Sex Assigned at Not on file Legal Sex Female 6:29 AM [employer]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 Answer Date of Assessment Author No 03/16/2014 4:49 PM CDAdalberto Connor, RN * Is person blind or have [...] Entry Date Author No 03/16/2014 4:49 PM VEDAT Adalberto Reno RN documented in this encounter Plan of Treatment Not on file documented as of this encounter Procedures Procedure Name Priority Date/Time Associated Diagnosis Comments VANCOMYCIN LEVEL TROUGH STAT 06/15/2025 10:30 AM CDT documented in this encounter Results * (ABNORMAL) VANCOMYCIN LEVEL TROUGH (06/15/2025 10:30 AM CDT) Vancomycin Trough 21.8(H) 10.0 - 20.0 ug/mL 06/15/2025 1:58 PM CDT [facility] Blood BLOOD SPECIMEN / Unknown Venipuncture / Unknown 06/15/2025 10:30 AM CDT 06/15/2025 1:26 PM CDT Maximiliano Montoya DO LAB - CHEMISTRY ORDERABLES Final Result Performing Organization Address City/State/[facility] Co de Phone Number [facility] [address] [place], [place] [id number] documented in this encounter Visit Diagnoses Not on filedocumented in this encounter Care Teams Triage Registered Nurse Relationship Specialty Start Date End Date Manas oSsa MD [address] [place] [id number] PCP - General Internal Medicine 02/09/14 Agueda Luna, RN Dogman/Woman 03/16/14 documented as of this encounter
[2025-06-22] MEDS: CENTRAL LINE FLUSH 10 ML IV PUSH (20:48)
[2025-06-22 21:31] LABS: Thyroid Stimulating Hormone 2.130 uIU/mL (0.465-4.680)
[2025-06-22] MEDS: GABAPENTIN 100 MG CAPSULE PO (21:59)
[2025-06-22] MEDS: MONTELUKAST SODIUM 10 MG TABLET PO (21:59)
[2025-06-22] MEDS: CEFEPIME 2 GM in SODIUM CHLORIDE 0.9% IV 50 ML 100 ML IVPB (22:00)
[2025-06-22 22:07] LABS: Vitamin B12 754.0 pg/mL (239-931)
[2025-06-22] MEDS: ENALAPRILAT 1.25 MG/ML VIAL IV PUSH (22:44)
[2025-06-23] VITALS (10 sets, daily range): BP systolic 160–173; BP diastolic 68–74; PULSE 60–76; RESP 15–16; TEMP 36.6–36.7; O2SAT 93–95
--- NOTE | 2025-06-23 | ECHO_ITS ---
Patient Info Name: Christiana Jason Age: 79 years : 1945 Gender: Female Ht: 58 in Wt: 206 lbs BSA: 2.01 m2 HR: 64 bpm BP: 161 / 68 mmHg Technical Quality: Fair Exam Date: 06/23/2025 10:40 AM Patient Status: I Admit Date: 06/22/2025 Exam Type: CA echo doppler w bubble study Complete two-dimensional, color flow and Doppler transthoracic echocardiogram is performed with agitated saline. Staff Referring Physician: Joyce Solitario Labor Gang Supervisor: Pretty Amor Attending Provider: Joslyn Snyder MD Contrast/Agitated Saline Contrast/Ag. Saline: Agitated Saline Amount: 20.00 ml Existing IV Access: Yes Summary 1. Left ventricular chamber dimension is normal. 2. Left ventricular systolic function is normal, estimated at 65-70. 3. There is moderate concentric increased left ventricular wall thickness. 4. The left ventricular diastolic function is grade I diastolic dysfunction. 5. E/e' 19 is elevated. 6. There is moderate aortic valve sclerosis. 7. There is mild aortic valve stenosis with a peak velocity of 283 cm/s, mean gradient of 19 mmHg, and aortic valve area of 1.8 cm2. 8. There is mild to moderate aortic valve regurgitation. 9. The mitral valve has mildly calcified leaflets and a mildly calcified annulus. 10. No pulmonary hypertension, estimated pulmonary arterial systolic pressure is 29 mmHg. Left Ventricle E/e' 19 is elevated. Left ventricular chamber dimension is normal. Left ventricular systolic function is normal, estimated at 65-70. There is moderate concentric increased left ventricular wall thickness. The left ventricular diastolic function is grade I diastolic dysfunction. Right Ventricle Right ventricular chamber dimension is normal. Right ventricular systolic function is normal. Left Atria Left atrial chamber dimension is normal. Right Atria Right atrial chamber dimension is normal. Atrial Septum Intact interatrial septum visualized by 2D and agitated saline imaging. Agitated saline injection with and without valsalva maneuver opacified right side cardiac chambers without shunt to left side cardiac chambers. Aortic Valve The aortic valve is trileaflet. There is moderate aortic valve sclerosis. There is mild aortic valve stenosis with a peak velocity of 283 cm/s, mean gradient of 19 mmHg, and aortic valve area of 1.8 cm2. There is mild to moderate aortic valve regurgitation. Pulmonic Valve There is no pulmonic regurgitation. Mitral Valve The mitral valve has mildly calcified leaflets and a mildly calcified annulus. There is no mitral valve stenosis. There is no mitral valve regurgitation. Tricuspid Valve There is no tricuspid valve regurgitation. No pulmonary hypertension, estimated pulmonary arterial systolic pressure is 29 mmHg. Pericardium/Pleural There is no pericardial effusion. Inferior Vena Cava Normal inferior vena cava with >50% collapse upon inspiration consistent with normal right atrial pressure, 5 mmHg. Aorta The aortic root size at the sinus of Valsalva is normal. Left Ventricular Outflow Tract Name Value Normal LVOT 2D LVOT Diameter 1.9 cm LVOT Doppler LVOT Peak Velocity 158 cm/s LVOT Peak Gradient 10 mmHg LVOT Mean Gradient 6 mmHg LVOT VTI 40 cm LVOT VTI/AV VTI Ratio 0.6 LVOT Stroke Volume 112 ml LVOT CO 7.1 l/min LVOT CI 3.5 l/min/m2 Pulmonic Valve Name Value Normal RVOT Doppler RVOT Peak Velocity 89 cm/s RVOT Peak Gradient 3 mmHg PV Doppler PV Peak Velocity 124 cm/s PV Peak Gradient 6 mmHg Mitral Valve Name Value Normal MV Diastolic Function MV E Peak Velocity 74 cm/s MV A Peak Velocity 116 cm/s MV E/A 0.6 MV Decel Time (PW) 231 ms Tricuspid Valve Name Value Normal TV Regurgitation Doppler TR Peak Velocity 246 cm/s TR Peak Gradient 24 mmHg Estimated PAP/RSVP RA Pressure 5 mmHg <=5 PA Systolic Pressure 29 mmHg <36 RV Systolic Pressure 29 mmHg <36 Aorta Name Value Normal Ascending Aorta Ao Root Diameter (MM) 3.2 cm Ao Root Diam Index (MM) 1.6 cm/m2 Aortic Valve Name Value Normal AV Doppler AV Peak Velocity 283 cm/s AV Peak Gradient 31 mmHg AV Mean Gradient 19 mmHg AV VTI 63 cm AV Area (Cont Eq VTI) 1.8 cm2 >=3.0 AV Area (Cont Eq Vinay) 1.6 cm2 AV DI (Vinay) 0.56 AV Regurgitation 2D LVOT Area 2.8 cm2 Ventricles Name Value Normal LV Dimensions 2D/MM IVS Diastolic Thickness (2D) 0.8 cm 0.6-1.0 IVS Diastole Thickness (MM) 0.9 cm 0.6-0.9 LVID Diastole (2D) 3.3 cm 3.8-5.2 LVID Diastole (MM) 5.0 cm 3.8-5.2 LVIW Diastolic Thickness (2D) 0.8 cm 0.6-0.9 LVIW Diastolic Thickness (MM) 1.4 cm 0.6-0.9 LVID Systole (2D) 2.1 cm 2.2-3.5 LVID Systole (MM) 2.4 cm 2.2-3.5 LVOT Diameter 1.9 cm LV Mass (2D Cubed) 69.89 g 67.00-162.00 LV Mass Index (2D Cubed) 35 g/m2 43-95 Relative Wall Thickness (2D) 0.48 <=0.42 LV Mass (MM Cubed) 217.24 g 67.00-162.00 LV Mass Index (MM Cubed) 108 g/m2 43-95 Relative Wall Thickness (MM) 0.58 LV Fractional Shortening/Ejection Fraction 2D/MM LV Fractional Shortening (2D) 37 % 27-45 LV Fractional Shortening (MM) 52 % 27-45 LV EF (MM Teichholz) 83 % LV EF (2D Teichholz) 68 % LV Diastolic Volume (4C MOD) 87 ml LV EF (4C MOD) 78 % LV Diastolic Volume (2C MOD) 66 ml LV EF (2C MOD) 70 % LV Diastolic Volume (BP MOD) 79 ml 46-106 LV Diastolic Volume Index (BP MOD) 39 ml/m2 29-61 LV Systolic Volume (BP MOD) 20 ml 14-42 LV Systolic Volume Index (BP MOD) 10 ml/m2 8-24 LV EF (BP MOD) 74 % 54-74 LV Diastolic Length (4C) 9.9 cm LV Systolic Length (4C) 7.5 cm LV Stroke Volume (4C MOD) 68 ml Atria Name Value Normal LA Dimensions LA Dimension (MM) 2.6 cm 2.7-3.8 LA Volume (4C A-L) 41 ml LA Volume (BP A-L) 44 ml RA Dimensions RA Systolic Major [place] Length (4C) 4.7 cm 2.2-2.8 RA Area (4C) 18.4 cm2 <=18.0 Report Signatures
[2025-06-23] MEDS: CENTRAL LINE FLUSH 10 ML IV PUSH ×3 (05:11→20:50)
[2025-06-23 05:16] LABS: Hematocrit 34.2 % (37.0-47.0); Hemoglobin 10.9 g/dL (12.0-15.0); Immature Granulocyte Percent A 0.5 % (0-0.5); Immature Platelet Fraction Pct 4.6 % (0.9-11.2); Lymphocytes Absolute Auto 1.22 K/mm3 (0.9-3.2); Mean Corpuscular HGB Conc 31.9 g/dl (32-36); Mean Corpuscular Hemoglobin 29.5 pg (26-34); Mean Corpuscular Volume 92.4 fl (80-100); Nucleated Red Blood Cells Absolute Auto 0.000 K/mm3 (0.0-0.012); Nucleated Red Blood Cells Perc 0.0 % (0.0-0.2); Platelet Count Result 93 k/mm3 (150-375); Red Blood Count 3.70 M/mm3 (4.2-5.4); White Blood Count 4.0 K/mm3 (4.5-10.0)
[2025-06-23 05:25] LABS: Alanine Aminotransferase 14 U/L (6-35); Albumin Level 3.9 g/dL (3.5-5.1); Alkaline Phosphatase 95 U/L (38-126); Anion Gap 9 mmol/L (4-12); Aspartate Amino Transferase 18 U/L (14-36); Bilirubin,Total 0.5 mg/dL (0.2-1.3); Blood Urea Nitrogen 21 mg/dL (7-17); Calcium 8.9 mg/dL (8.4-10.2); Carbon Dioxide 26 mmol/L (22-30); Chloride 106 mmol/L (98-107); Estimated Glomerular Filt Rate 59; Glucose 93 mg/dL (65-110); Potassium 3.4 mmol/L (3.4-5.0); Sodium 141 mmol/L (137-145); Total Protein 7.0 g/dL (6.3-8.2)
[2025-06-23] MEDS: FLUTICASONE/UMECLIDIN/VILANTER 100-62.5-25 MCG ELLIPTA 1 PUFF INHALATION (07:48)
[2025-06-23] MEDS: ESCITALOPRAM OXALATE 5 MG TABLET PO (08:19)
[2025-06-23] MEDS: dilTIAZem HCL CD 180 MG CAP.24HR 360 MG PO (08:19)
[2025-06-23] MEDS: GABAPENTIN 100 MG CAPSULE PO ×2 (08:19→20:45)
[2025-06-23] MEDS: SENNA/DOCUSATE SODIUM TABLET 1 TAB PO (08:20)
[2025-06-23] MEDS: VANCOMYCIN 1,250 MG/NS 250 ML 1,250 MG/250 ML BAG 166.67 MG IVPB (08:20)
[2025-06-23] MEDS: MULTIVITAMINS THERAPEUTIC TAB (*BKC) 1 TABLET PO (08:20)
[2025-06-23] MEDS: CLOPIDOGREL BISULFATE 75 MG TABLET PO (08:20)
[2025-06-23] MEDS: CEFEPIME 2 GM in SODIUM CHLORIDE 0.9% IV 50 ML 100 ML IVPB ×2 (11:13→20:45)
[2025-06-23] MEDS: LORazepam (*CRX) 0.5 MG TABLET PO (11:15)
--- NOTE | 2025-06-23 12:54 | PM.IMPN ---
Progress Note: A&P Assessment and Plan (1) Expressive aphasia: Code(s): R47.01 - Aphasia Status: Acute Assessment and Plan: Patient with history of AFib and no AC complains of expressive aphasia. Family and patient states symptoms started on 06/18. Chest x-ray with no acute cardiopulmonary findings, PICC line in place and okay to use. Head neck CTA with no critical stenosis or occlusion seen. Dilation of left supraclinoid carotid artery up to 8 mm likely associated with dolichoectasia-fusiform aneurysm could potentially have similar appearance. Milder similar changes in the right supraclinoid carotid artery. Four-vessel left-sided arch with dominant right vertebral artery. Low suspicion for cefepime neurotoxicity due to normal renal function. - admission for observation and telemetry - not candidate for thrombolytics due to timeframe - neurology consulted - brain MRI w/wo ordered - echo w/Bubble ordered - neuro checks Q4 - heart healthy diet - speech eval - monitor daily labs, lipid panel, A1C -ambulate with assistance -triglycerides 96, cholesterol 167, LDL cholesterol direct 88, HDL direct 38 - start Plavix 75 mg PO -aspirin 324 mg given in ED--> holding in setting of thrombocytopenia - consider 30 day event monitoring at discharge (2) Other acute osteomyelitis, right ankle and foot: Code(s): M86.171 - Other acute osteomyelitis, right ankle and foot Status: Chronic Assessment and Plan: Patient fell and broke ankle which was repaired with hardware. The hardware ED initially became infected and progressed to osteomyelitis, requiring removal. Finishing IV vancomycin and cefepime on 07/06. -PICC line in place from outside facility. Imaging shows it is in place. -continue IV vanc per pharmacy dosing and cefepime Plan 79 y/o female presented with expressive aphasia, and symptoms are still persisting, MRI of brain showed no acute intracranial process or abnormally enhancing brain lesions. patient echo did not show any shunt to have cause of stroke, patient was seen the neurologist and suspect patient has mild expressive aphasia, will benefit with speech therapist, patient is started on aspirin and plavix will have speech and PT/OT work with patient. patient will benefit going to rehab before going home. Diet: Regular GI prophylaxis: NA DVT prophylaxis: SCDs lines/drains: PIV Fluids: NA Code status: Full Subjective Date/time seen: 06/23/25 12:54 Interval history: Expressive aphasia H&P-Narrative: 79-year-old female with past medical history of COPD, AFib, renal cancer status post left nephrectomy presents to the ED from [facility] on 06/22/2025 with complaints of expressive aphasia. Family and patient states symptoms started on 06/18 with not feeling right. Staff at the facility report patient had elevated ?vanc levels? and has had expressive aphasia since yesterday, if not since the weekend. They are unsure of the date of the vanc trough results. Patient is A&Ox4. Denies headache, vision changes, recent falls. Patient has noticeable expressive aphasia but is able to get the correct word out if given time. Sons are at bedside. Patient is currently at [facility] while receiving her antibiotics and for rehab. The plan is for her to move into an assisted living facility once she completes rehab. Initial vital signs 159/74, HR 74, respirations 20, afebrile and 98% on room air. Labs reveal normocytic anemia and thrombocytopenia which have both been documented in the past. BUN 21, creatinine 0.99, GFR 54. Troponin 0.012. UA with 2+ protein. Chest x-ray with no acute cardiopulmonary findings, right PICC catheter tip lower SVC. Head neck CTA with no critical stenosis or occlusion seen. Dilation of left supraclinoid carotid artery up to 8 mm likely associated with dolichoectasia-fusiform aneurysm could potentially have similar appearance. Milder similar changes in the right supraclinoid carotid artery. Four-vessel left-sided arch with dominant right vertebral artery. 79 y/o female presented with expressive aphasia, and symptoms are still persisting, MRI of brain showed no acute intracranial process or abnormally enhancing brain lesions. patient echo did not show any shunt to have cause of stroke, patient was seen the neurologist and suspect patient has mild expressive aphasia, will benefit with speech therapist, patient is started on aspirin and plavix will have speech and PT/OT work with patient. patient will benefit going to rehab before going home. Review of Systems Review of Systems: All systems reviewed & are unremarkable except as noted in HPI and below Exam Narrative: Patient is comfortable, NAD HEENT: eyes are clear and none icteric LUNGS:CTA HEART: RR S1S2 ABD: BS+, Soft and nontender Lower extremities: no edema SKIN: nonjaundiced Neuro: grossly intact. Expressive aphasia Objective Data Vital Signs Vital Signs: Vital Signs - 24 hr 06/22/25 13:48 06/22/25 14:11 06/22/25 15:01 Temperature Pulse Rate 60 58 L 60 Respiratory Rate 20 21 H 22 H Blood Pressure 167/76 H 170/78 H 185/81 H Pulse Oximetry 97 95 97 Oxygen Delivery 06/22/25 15:45 06/22/25 16:00 06/22/25 16:30 Temperature 36.5 C Pulse Rate 64 61 Respiratory Rate 16 Blood Pressure 152/57 H Pulse Oximetry 100 Oxygen Delivery Room Air 06/22/25 20:00 06/22/25 20:00 06/22/25 21:13 Temperature 36.4 C Pulse Rate 60 67 Respiratory Rate 16 Blood Pressure 177/76 H Pulse Oximetry 95 Oxygen Delivery Room Air 06/22/25 21:40 06/23/25 00:00 06/23/25 00:37 Temperature Pulse Rate 62 68 Respiratory Rate Blood Pressure 161/73 H Pulse Oximetry 95 Oxygen Delivery Autopap 06/23/25 04:00 06/23/25 05:08 06/23/25 07:51 Temperature 36.7 C Pulse Rate 60 64 Respiratory Rate 16 Blood Pressure 161/68 H Pulse Oximetry 95 93 Oxygen Delivery Room Air 06/23/25 08:20 Temperature Pulse Rate Respiratory Rate Blood Pressure Pulse Oximetry Oxygen Delivery Room Air Intake/Output Intake/Output: Intake & Output 06/20/25 06/21/25 06/22/25 06/23/25 23:59 23:59 23:59 23:59 Intake Total 260 280 Output Total 75 600 Balance 185 -320 Meds/Results Medications: Active Medications Generic Name Dose Route Start Last Admin Trade Name Freq PRN Reason Stop Dose Admin Acetaminophen 650 mg 06/22/25 14:27 Acetaminophen 325 Mg Tablet PO Q4H PRN Mild Pain (1-3) or Fever Alteplase, Recombinant 2 mg 06/22/25 11:34 06/22/25 12:05 Alteplase 2 Mg Vial (Cathflo) IV PUSH 2 mg ONCE PRN Administration Line Occlusion Alteplase, Recombinant 2 mg 06/22/25 11:37 Alteplase 2 Mg Vial (Cathflo) IV PUSH ONCE PRN Line Occlusion Clopidogrel Bisulfate 75 mg 06/23/25 09:00 06/23/25 08:20 Clopidogrel Bisulfate 75 Mg Tablet PO 75 mg QAM MIRELA Administration Diltiazem HCl 360 mg 06/23/25 09:00 06/23/25 08:19 Diltiazem Hcl Cd 180 Mg Cap.24hr PO 360 mg DAILY MIRELA Administration Escitalopram Oxalate 5 mg 06/23/25 09:00 06/23/25 08:19 Escitalopram Oxalate 5 Mg Tablet PO 5 mg DAILY MIRELA Administration Fluticasone/Umeclidinium/Vilanterol 1 puff 06/23/25 09:00 06/23/25 07:48 Fluticasone/Umeclidin/Vilanter 100-62.5-25 Mcg Ellipta INHALATION 1 puff DAILY MIRELA Administration Gabapentin 100 mg 06/22/25 21:30 06/23/25 08:19 Gabapentin 100 Mg Capsule PO 100 mg Q12HR MIRELA Administration Cefepime HCl 2 gm/ Sodium 50 mls @ 100 mls/hr 06/22/25 22:00 06/23/25 11:13 Chloride IVPB 100 mls/hr Q12H MIRELA Administration Vancomycin HCl 1,250 mg in 250 mls @ 166.667 mls/hr 06/23/25 08:00 06/23/25 08:20 Vancomycin 1,250 Mg/Ns 250 Ml IVPB 166.67 mls/hr Q24H MIRELA Administration Montelukast Sodium 10 mg 06/22/25 21:45 06/22/25 21:59 Montelukast Sodium 10 Mg Tablet PO 10 mg QPM MIRELA Administration Multivitamins Therapeutic 1 tablet 06/23/25 09:00 06/23/25 08:20 Multivitamins Therapeutic Tab (*Bkc) PO 1 tablet DAILY MIRELA Administration Ondansetron HCl 4 mg 06/22/25 14:27 Ondansetron Inj 4 Mg/2 Ml Vial IV PUSH Q4H PRN Nausea Oxybutynin Chloride 5 mg 06/22/25 21:45 06/23/25 08:20 Oxybutynin Chloride 5 Mg Tablet PO 5 mg BID MIRELA Administration Oxycodone HCl 5 mg 06/22/25 21:35 Oxycodone Hcl (*Crx) 5 Mg Tab Ir PO Q8H PRN pain (scale score 7-10) Perflutren Lipid Microsphere 0 ml 06/22/25 17:53 Perflutren Lipid Microspheres 1.5 Ml Vial Diluted To 10 Ml Total Volume IV PUSH 06/25/25 17:53 ONCE PRN adequate visualization Protocol Senna/Docusate Sodium 1 tab 06/23/25 09:00 06/23/25 08:20 Senna/Docusate Sodium Tablet PO 1 tab DAILY MIRELA Administration Sodium Chloride 10 ml 06/22/25 14:00 06/23/25 05:11 Central Line Flush IV PUSH 10 ml Q8HR MIRELA Administration Sodium Chloride 10 ml 06/22/25 11:13 Central Line Flush IV PUSH PRN PRN with TPN bag changes Sodium Chloride 20 ml 06/22/25 11:13 Central Line Flush IV PUSH PRN PRN after blood draws Radiology Results: ITS Impressions Chest X-Ray 06/22/25 10:44 IMPRESSION: 1. No acute cardiopulmonary findings given portable technique. 2. Right PICC catheter tip lower SVC. Head/Neck CTA 06/22/25 13:05 IMPRESSION: No critical stenosis or occlusion seen. 2. 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 Fusiform aneurysm could potentially have a similar appearance. Milder similar changes in the right supraclinoid carotid artery. No acute complication. 3. Four vessel left-sided arch with dominant right vertebral artery. Brain MRI 06/23/25 12:32 IMPRESSION: 1. No acute intracranial process or abnormally enhancing brain lesions. 2. 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 3. Age-related changes including mild diffuse volume loss and moderate scattered pontine and periventricular predominant cerebral white matter T2 hyperintensity consistent with chronic small vessel ischemic disease. Labs Labs: Laboratory Results - last 24 hr 06/22/25 06/22/25 06/23/25 12:01 12:03 05:08 WBC 4.0 L RBC 3.70 L Hgb 10.9 L Hct 34.2 L MCV 92.4 MCH 29.5 MCHC 31.9 L RDW 14.6 H Plt Count 93 L MPV 10.9 H Immature Gran % (Auto) 0.5 Neut % (Auto) 43.5 L Lymph % (Auto) 30.4 Arthur % (Auto) 23.7 H Eos % (Auto) 1.7 Baso % (Auto) 0.2 Lymph # (Auto) 1.22 Arthur # (Auto) 1.0 H Eos # (Auto) 0.1 Baso # (Auto) 0.0 Abs Immat Gran (auto) 0.02 Absolute Neuts (auto) 1.7 Absolute Nucleated RBC 0.000 Nucleated RBC % 0.0 % Immature Plt Fraction 4.6 Sodium 141 Potassium 3.4 Chloride 106 Carbon Dioxide 26 Anion Gap 9 BUN 21 H Creatinine 0.92 Estim Creat Clear Calc Not Reportable Estimated GFR 59 Glucose 93 Hemoglobin A1c 4.8 Calcium 8.9 Total Bilirubin 0.5 AST 18 ALT 14 Alkaline Phosphatase 95 Troponin I < 0.012 Total Protein 7.0 Albumin 3.9 Triglycerides 96 Cholesterol 167 LDL Cholesterol Direct 88 HDL Direct 38 Vitamin B12 754.0 Vitamin D 25-Hydroxy 64.7 Folate > 20.0 H TSH 2.130 Random Vancomycin 12.7 Quality VTE Prophylaxis VTE prophylaxis: mechanical ordered
[2025-06-23] MEDS: MONTELUKAST SODIUM 10 MG TABLET PO (17:31)
[2025-06-24] VITALS (11 sets, daily range): BP systolic 154–182; BP diastolic 68–87; PULSE 61–85; RESP 16–18; TEMP 36.3–36.8; O2SAT 94–97
[2025-06-24 05:57] LABS: Estimated Glomerular Filt Rate 56
[2025-06-24] MEDS: CENTRAL LINE FLUSH 10 ML IV PUSH ×3 (06:52→20:19)
[2025-06-24] MEDS: VANCOMYCIN 1,250 MG/NS 250 ML 1,250 MG/250 ML BAG 166.67 MG IVPB (09:13)
[2025-06-24] MEDS: CEFEPIME 2 GM in SODIUM CHLORIDE 0.9% IV 50 ML 100 ML IVPB ×2 (09:13→20:19)
[2025-06-24] MEDS: CLOPIDOGREL BISULFATE 75 MG TABLET PO (09:17)
[2025-06-24] MEDS: MULTIVITAMINS THERAPEUTIC TAB (*BKC) 1 TABLET PO (09:17)
[2025-06-24] MEDS: dilTIAZem HCL CD 180 MG CAP.24HR 360 MG PO (09:17)
[2025-06-24] MEDS: GABAPENTIN 100 MG CAPSULE PO ×2 (09:17→20:19)
[2025-06-24] MEDS: SENNA/DOCUSATE SODIUM TABLET 1 TAB PO (09:17)
[2025-06-24] MEDS: ESCITALOPRAM OXALATE 5 MG TABLET PO (09:17)
[2025-06-24] MEDS: FLUTICASONE/UMECLIDIN/VILANTER 100-62.5-25 MCG ELLIPTA 1 PUFF INHALATION (09:33)
--- NOTE | 2025-06-24 13:19 | P.PNIM_ITS ---
Progress Note: A&P Assessment and Plan (1) Expressive aphasia: Code(s): R47.01 - Aphasia Status: Acute Assessment and Plan: Patient with history of AFib and no AC complains of expressive aphasia. Family and patient states symptoms started on 06/18. Chest x-ray with no acute cardiopulmonary findings, PICC line in place and okay to use. Head neck CTA with no critical stenosis or occlusion seen. Dilation of left supraclinoid carotid artery up to 8 mm likely associated with dolichoectasia-fusiform aneurysm could potentially have similar appearance. Milder similar changes in the right supraclinoid carotid artery. Four-vessel left-sided arch with dominant right vertebral artery. Low suspicion for cefepime neurotoxicity due to normal renal function. - admission for observation and telemetry - not candidate for thrombolytics due to timeframe - neurology consulted - brain MRI w/wo ordered - echo w/Bubble ordered - neuro checks Q4 - heart healthy diet - speech eval - monitor daily labs, lipid panel, A1C -ambulate with assistance -triglycerides 96, cholesterol 167, LDL cholesterol direct 88, HDL direct 38 - start Plavix 75 mg PO -aspirin 324 mg given in ED--> holding in setting of thrombocytopenia - consider 30 day event monitoring at discharge (2) Other acute osteomyelitis, right ankle and foot: Code(s): M86.171 - Other acute osteomyelitis, right ankle and foot Status: Chronic Assessment and Plan: Patient fell and broke ankle which was repaired with hardware. The hardware ED initially became infected and progressed to osteomyelitis, requiring removal. Finishing IV vancomycin and cefepime on 07/06. -PICC line in place from outside facility. Imaging shows it is in place. -continue IV vanc per pharmacy dosing and cefepime Plan 79 y/o female presented with expressive aphasia, and symptoms were persisting upon arrival, MRI of brain showed no acute intracranial process or abnormally enhancing brain lesions. patient echo did not show any shunt to have cause of stroke, patient was seen the neurologist and suspect patient has mild expressive aphasia, will benefit with speech therapist, patient is started on aspirin and plavix will have speech and PT/OT work with patient. today patient speech has improved compared when she arrived, possible may be some neuro symptoms from her Cefepime, patient is taking for OM of her ankle, patient will benefit going to rehab before going home. Diet: Regular GI prophylaxis: NA DVT prophylaxis: SCDs lines/drains: PIV Fluids: NA Code status: Full Subjective Date/time seen: 06/24/25 13:19 Interval history: Expressive aphasia H&P-Narrative: 79-year-old female with past medical history of COPD, AFib, renal cancer status post left nephrectomy presents to the ED from [facility] on 06/22/2025 with complaints of expressive aphasia. Family and patient states symptoms started on 06/18 with not feeling right. Staff at the facility report patient had elevated ?vanc levels? and has had expressive aphasia since yesterday, if not since the weekend. They are unsure of the date of the vanc trough results. Patient is A&Ox4. Denies headache, vision changes, recent falls. Patient has noticeable expressive aphasia but is able to get the correct word out if given time. Sons are at bedside. Patient is currently at [facility] while receiving her antibiotics and for rehab. The plan is for her to move into an assisted living facility once she completes rehab. Initial vital signs 159/74, HR 74, respirations 20, afebrile and 98% on room air. Labs reveal normocytic anemia and thrombocytopenia which have both been documented in the past. BUN 21, creatinine 0.99, GFR 54. Troponin 0.012. UA with 2+ protein. Chest x-ray with no acute cardiopulmonary findings, right PICC catheter tip lower SVC. Head neck CTA with no critical stenosis or occlusion seen. Dilation of left supraclinoid carotid artery up to 8 mm likely associated with dolichoectasia- fusiform aneurysm could potentially have similar appearance. Milder similar changes in the right supraclinoid carotid artery. Four-vessel left-sided arch with dominant right vertebral artery. 79 y/o female presented with expressive aphasia, and symptoms were persisting upon arrival, MRI of brain showed no acute intracranial process or abnormally enhancing brain lesions. patient echo did not show any shunt to have cause of stroke, patient was seen the neurologist and suspect patient has mild expressive aphasia, will benefit with speech therapist, patient is started on aspirin and plavix will have speech and PT/OT work with patient. today patient speech has improved compared when she arrived, possible may be some neuro symptoms from her Cefepime, patient is taking for OM of her ankle, patient will benefit going to rehab before going home. Review of Systems Review of Systems: All systems reviewed & are unremarkable except as noted in HPI and below Exam Narrative: Patient is comfortable, NAD HEENT: eyes are clear and none icteric LUNGS:CTA HEART: RR S1S2 ABD: BS+, Soft and nontender Lower extremities: no edema SKIN: nonjaundiced Neuro: grossly intact. Expressive aphasia Objective Data Vital Signs Vital Signs: Vital Signs - 24 hr 06/23/25 14:00 06/23/25 16:00 06/23/25 20:00 Temperature 36.6 C Pulse Rate 65 69 Respiratory Rate 15 Blood Pressure 160/72 H Pulse Oximetry 95 Oxygen Delivery Room Air 06/23/25 20:00 06/23/25 20:35 06/24/25 00:00 Temperature 36.6 C Pulse Rate 69 76 72 Respiratory Rate 16 Blood Pressure 173/74 H Pulse Oximetry 93 Oxygen Delivery 06/24/25 04:00 06/24/25 05:12 06/24/25 05:42 Temperature 36.3 C L Pulse Rate 61 66 Respiratory Rate 16 Blood Pressure 182/70 H 175/82 H Pulse Oximetry 97 Oxygen Delivery 06/24/25 08:00 06/24/25 08:40 06/24/25 09:33 Temperature Pulse Rate Respiratory Rate Blood Pressure Pulse Oximetry 97 Oxygen Delivery Room Air Room Air Room Air Intake/Output Intake/Output: Intake & Output 06/21/25 06/22/25 06/23/25 06/24/25 23:59 23:59 23:59 23:59 Intake Total 260 1092 500 Output Total 75 1400 550 Balance 185 -308 -50 Meds/Results Medications: Active Medications Generic Name Dose Route Start Last Admin Trade Name Jose Eq PRN Reason Stop Dose Admin Acetaminophen 650 mg 06/22/25 14:27 Acetaminophen 325 Mg Tablet PO Q4H PRN Mild Pain (1-3) or Fever Alteplase, Recombinant 2 mg 06/22/25 11:34 06/22/25 12:05 Alteplase 2 Mg Vial (Cathflo) IV PUSH 2 mg ONCE PRN Administration Line Occlusion Alteplase, Recombinant 2 mg 06/22/25 11:37 Alteplase 2 Mg Vial (Cathflo) IV PUSH ONCE PRN Line Occlusion Clopidogrel Bisulfate 75 mg 06/23/25 09:00 06/24/25 09:17 Clopidogrel Bisulfate 75 Mg Tablet PO 75 mg QAM MIRELA Administration Diltiazem HCl 360 mg 06/23/25 09:00 06/24/25 09:17 Diltiazem Hcl Cd 180 Mg Cap.24hr PO 360 mg DAILY MIRELA Administration Escitalopram Oxalate 5 mg 06/23/25 09:00 06/24/25 09:17 Escitalopram Oxalate 5 Mg Tablet PO 5 mg DAILY MIRELA Administration Fluticasone/Umeclidinium/Vilanterol 1 puff 06/23/25 09:00 06/24/25 09:33 Fluticasone/Umeclidin/Vilanter 100-62.5-25 Mcg Ellipta INHALATION 1 puff DAILY MIRELA Administration Gabapentin 100 mg 06/22/25 21:30 06/24/25 09:17 Gabapentin 100 Mg Capsule PO 100 mg Q12HR MIRELA Administration Cefepime HCl 2 gm/ Sodium 50 mls @ 100 mls/hr 06/22/25 22:00 06/24/25 09:43 Chloride IVPB Infused Q12H MIRELA Infusion Vancomycin HCl 1,250 mg in 250 mls @ 166.667 mls/hr 06/23/25 08:00 06/24/25 10:43 Vancomycin 1,250 Mg/Ns 250 Ml IVPB Infused Q24H MIRELA Infusion Montelukast Sodium 10 mg 06/22/25 21:45 06/23/25 17:31 Montelukast Sodium 10 Mg Tablet PO 10 mg QPM MIRELA Administration Multivitamins Therapeutic 1 tablet 06/23/25 09:00 06/24/25 09:17 Multivitamins Therapeutic Tab (*Bkc) PO 1 tablet DAILY MIRELA Administration Ondansetron HCl 4 mg 06/22/25 14:27 Ondansetron Inj 4 Mg/2 Ml Vial IV PUSH Q4H PRN Nausea Oxybutynin Chloride 5 mg 06/22/25 21:45 06/24/25 09:17 Oxybutynin Chloride 5 Mg Tablet PO 5 mg BID MIRELA Administration Oxycodone HCl 5 mg 06/22/25 21:35 Oxycodone Hcl (*Crx) 5 Mg Tab Ir PO Q8H PRN pain (scale score 7-10) Perflutren Lipid Microsphere 0 ml 06/22/25 17:53 Perflutren Lipid Microspheres 1.5 Ml Vial Diluted To 10 Ml Total Volume IV PU SH 06/25/25 17:53 ONCE PRN adequate visualization Protocol Senna/Docusate Sodium 1 tab 11/07/25 09:00 06/24/25 09:17 Senna/Docusate Sodium Tablet PO 1 tab DAILY MIRELA Administration Sodium Chloride 10 ml 06/22/25 14:00 06/24/25 06:52 Central Line Flush IV PUSH 10 ml Q8HR MIRELA Administration Sodium Chloride 10 ml 06/22/25 11:13 Central Line Flush IV PUSH PRN PRN with TPN bag changes Sodium Chloride 20 ml 06/22/25 11:13 Central Line Flush IV PUSH PRN PRN after blood draws Radiology Results: ITS Impressions Chest X-Ray 06/22/25 10:44 IMPRESSION: 1. No acute cardiopulmonary findings given portable technique. 2. Right PICC catheter tip lower SVC. Head/Neck CTA 06/22/25 13:05 IMPRESSION: No critical stenosis or occlusion seen. 2. 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 Fusiform aneurysm could potentially have a similar appearance. Milder similar changes in the right supraclinoid carotid artery. No acute complication. 3. Four vessel left-sided arch with dominant right vertebral artery. Brain MRI 06/23/25 12:32 IMPRESSION: 1. No acute intracranial process or abnormally enhancing brain lesions. 2. 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 3. Age-related changes including mild diffuse volume loss and moderate scattered pontine and periventricular predominant cerebral white matter T2 hyperintensity consistent with chronic small vessel ischemic disease. Labs Labs: Laboratory Results - last 24 hr 06/24/25 05:23 Creatinine 0.96 Estim Creat Clear Calc Not Reportable Estimated GFR 56 L Quality VTE Prophylaxis VTE prophylaxis: mechanical ordered
[2025-06-24] MEDS: MONTELUKAST SODIUM 10 MG TABLET PO (16:39)
[2025-06-25] VITALS (8 sets, daily range): BP systolic 142–178; BP diastolic 69–81; PULSE 73–85; RESP 16–18; TEMP 36.4–37.1; O2SAT 94–100
[2025-06-25] MEDS: CENTRAL LINE FLUSH 10 ML IV PUSH ×3 (04:43→21:27)
[2025-06-25 05:06] LABS: Estimated Glomerular Filt Rate 56
[2025-06-25] MEDS: FLUTICASONE/UMECLIDIN/VILANTER 100-62.5-25 MCG ELLIPTA 1 PUFF INHALATION (07:06)
[2025-06-25] MEDS: MULTIVITAMINS THERAPEUTIC TAB (*BKC) 1 TABLET PO (09:15)
[2025-06-25] MEDS: SENNA/DOCUSATE SODIUM TABLET 1 TAB PO (09:15)
[2025-06-25] MEDS: dilTIAZem HCL CD 180 MG CAP.24HR 360 MG PO (09:15)
[2025-06-25] MEDS: VANCOMYCIN 1,250 MG/NS 250 ML 1,250 MG/250 ML BAG 166.67 MG IVPB (09:16)
[2025-06-25] MEDS: CEFEPIME 2 GM in SODIUM CHLORIDE 0.9% IV 50 ML 100 ML IVPB ×2 (09:16→21:26)
[2025-06-25] MEDS: GABAPENTIN 100 MG CAPSULE PO ×2 (09:16→20:23)
[2025-06-25] MEDS: CLOPIDOGREL BISULFATE 75 MG TABLET PO (09:16)
[2025-06-25] MEDS: ESCITALOPRAM OXALATE 5 MG TABLET PO (09:16)
[2025-06-25 09:52] LABS: Hematocrit 36.1 % (37.0-47.0); Hemoglobin 11.5 g/dL (12.0-15.0); Immature Platelet Fraction Pct 5.9 % (0.9-11.2); Mean Corpuscular HGB Conc 31.9 g/dl (32-36); Mean Corpuscular Hemoglobin 29.6 pg (26-34); Mean Corpuscular Volume 92.8 fl (80-100); Platelet Count Result 92 k/mm3 (150-375); Red Blood Count 3.89 M/mm3 (4.2-5.4); White Blood Count 6.6 K/mm3 (4.5-10.0)
[2025-06-25 10:19] LABS: Anion Gap 12 mmol/L (4-12); Blood Urea Nitrogen 20 mg/dL (7-17); Calcium 8.8 mg/dL (8.4-10.2); Carbon Dioxide 22 mmol/L (22-30); Chloride 105 mmol/L (98-107); Estimated Glomerular Filt Rate 55; Glucose 187 mg/dL (65-110); Magnesium 2.0 mg/dL (1.6-2.3); Potassium 3.0 mmol/L (3.4-5.0); Sodium 139 mmol/L (137-145)
--- NOTE | 2025-06-25 12:40 | P.PNIM_ITS ---
Progress Note: A&P Assessment and Plan (1) Expressive aphasia: Code(s): R47.01 - Aphasia Status: Acute Assessment and Plan: Patient with history of AFib and no AC complains of expressive aphasia. Family and patient states symptoms started on 06/18. Chest x-ray with no acute cardiopulmonary findings, PICC line in place and okay to use. Head neck CTA with no critical stenosis or occlusion seen. Dilation of left supraclinoid carotid artery up to 8 mm likely associated with dolichoectasia-fusiform aneurysm could potentially have similar appearance. Milder similar changes in the right supraclinoid carotid artery. Four-vessel left-sided arch with dominant right vertebral artery. Low suspicion for cefepime neurotoxicity due to normal renal function. - admission for observation and telemetry - not candidate for thrombolytics due to timeframe - neurology consulted - brain MRI w/wo ordered - echo w/Bubble ordered - neuro checks Q4 - heart healthy diet - speech eval - monitor daily labs, lipid panel, A1C -ambulate with assistance -triglycerides 96, cholesterol 167, LDL cholesterol direct 88, HDL direct 38 - start Plavix 75 mg PO -aspirin 324 mg given in ED--> holding in setting of thrombocytopenia - consider 30 day event monitoring at discharge (2) Other acute osteomyelitis, right ankle and foot: Code(s): M86.171 - Other acute osteomyelitis, right ankle and foot Status: Chronic Assessment and Plan: Patient fell and broke ankle which was repaired with hardware. The hardware ED initially became infected and progressed to osteomyelitis, requiring removal. Finishing IV vancomycin and cefepime on 07/06. -PICC line in place from outside facility. Imaging shows it is in place. -continue IV vanc per pharmacy dosing and cefepime Plan 79 y/o female presented with expressive aphasia, and symptoms were persisting upon arrival, MRI of brain showed no acute intracranial process or abnormally enhancing brain lesions. patient echo did not show any shunt to have cause of stroke, patient was seen the neurologist and suspect patient has mild expressive aphasia, will benefit with speech therapist, patient is started on aspirin and plavix will have speech and PT/OT work with patient. on 06/24 patient speech had improved compared when she arrived, however today patient speech is again slurred, possible may be some neuro toxicity symptoms from her Cefepime, patient is taking for OM of her ankle, will call patient ID Dr. Tian for any recommendation, patient family is present in the room, patient will benefit going to rehab before going home. Diet: Regular GI prophylaxis: NA DVT prophylaxis: SCDs lines/drains: PIV Fluids: NA Code status: Full Subjective Date/time seen: 06/25/25 12:40 Interval history: Expressive aphasia H&P-Narrative: 79-year-old female with past medical history of COPD, AFib, renal cancer status post left nephrectomy presents to the ED from [facility] on 06/22/2025 with complaints of expressive aphasia. Family and patient states symptoms started on 06/18 with not feeling right. Staff at the facility report patient had elevated ?vanc levels? and has had expressive aphasia since yesterday, if not since the weekend. They are unsure of the date of the vanc trough results. Patient is A&Ox4. Denies headache, vision changes, recent falls. Patient has noticeable expressive aphasia but is able to get the correct word out if given time. Sons are at bedside. Patient is currently at [facility] while receiving her antibiotics and for rehab. The plan is for her to move into an assisted living facility once she completes rehab. Initial vital signs 159/74, HR 74, respirations 20, afebrile and 98% on room air. Labs reveal normocytic anemia and thrombocytopenia which have both been documented in the past. BUN 21, creatinine 0.99, GFR 54. Troponin 0.012. UA with 2+ protein. Chest x-ray with no acute cardiopulmonary findings, right PICC catheter tip lower SVC. Head neck CTA with no critical stenosis or occlusion seen. Dilation of left supraclinoid carotid artery up to 8 mm likely associated with dolichoectasia- fusiform aneurysm could potentially have similar appearance. Milder similar changes in the right supraclinoid carotid artery. Four-vessel left-sided arch with dominant right vertebral artery. 79 y/o female presented with expressive aphasia, and symptoms were persisting upon arrival, MRI of brain showed no acute intracranial process or abnormally enhancing brain lesions. patient echo did not show any shunt to have cause of stroke, patient was seen the neurologist and suspect patient has mild expressive aphasia, will benefit with speech therapist, patient is started on aspirin and plavix will have speech and PT/OT work with patient. on 06/24 patient speech had improved compared when she arrived, however today patient speech is again slurred, possible may be some neuro toxicity symptoms from her Cefepime, patient is taking for OM of her ankle, will call patient ID Dr. Tian for any recommendation, patient family is present in the room, patient will benefit going to rehab before going home. Review of Systems Review of Systems: All systems reviewed & are unremarkable except as noted in HPI and below Exam Narrative: Patient is comfortable, NAD HEENT: eyes are clear and none icteric LUNGS:CTA HEART: RR S1S2 ABD: BS+, Soft and nontender Lower extremities: no edema SKIN: nonjaundiced Neuro: grossly intact. Expressive aphasia Objective Data Vital Signs Vital Signs: Vital Signs - 24 hr 06/24/25 14:00 06/24/25 16:00 06/24/25 20:00 Temperature 36.8 C Pulse Rate 85 74 70 Respiratory Rate 18 Blood Pressure 154/68 H Pulse Oximetry 94 Oxygen Delivery 06/24/25 20:00 06/24/25 22:00 06/25/25 00:00 Temperature 36.7 C Pulse Rate 80 73 Respiratory Rate 18 Blood Pressure 169/87 H Pulse Oximetry 94 Oxygen Delivery Room Air 06/25/25 04:00 06/25/25 05:59 06/25/25 08:00 Temperature 36.5 C Pulse Rate 84 77 Respiratory Rate 18 Blood Pressure 158/81 H Pulse Oximetry 94 Oxygen Delivery Room Air 06/25/25 08:00 Temperature Pulse Rate 80 Respiratory Rate Blood Pressure Pulse Oximetry Oxygen Delivery Intake/Output Intake/Output: Intake & Output 06/22/25 06/23/25 06/24/25 06/25/25 23:59 23:59 23:59 23:59 Intake Total 260 1092 910 120 Output Total 75 1400 950 650 Balance 185 -308 -40 -530 Meds/Results Medications: Active Medications Generic Name Dose Route Start Last Admin Trade Name Freq PRN Reason Stop Dose Admin Acetaminophen 650 mg 06/22/25 14:27 Acetaminophen 325 Mg Tablet PO Q4H PRN Mild Pain (1-3) or Fever Alteplase, Recombinant 2 mg 06/22/25 11:34 06/22/25 12:05 Alteplase 2 Mg Vial (Cathflo) IV PUSH 2 mg ONCE PRN Administration Line Occlusion Alteplase, Recombinant 2 mg 06/22/25 11:37 Alteplase 2 Mg Vial (Cathflo) IV PUSH ONCE PRN Line Occlusion Clopidogrel Bisulfate 75 mg 06/23/25 09:00 06/25/25 09:16 Clopidogrel Bisulfate 75 Mg Tablet PO 75 mg QAM MIRELA Administration Diltiazem HCl 360 mg 06/23/25 09:00 06/25/25 09:15 Diltiazem Hcl Cd 180 Mg Cap.24hr PO 360 mg DAILY MIRELA Administration Escitalopram Oxalate 5 mg 06/23/25 09:00 06/25/25 09:16 Escitalopram Oxalate 5 Mg Tablet PO 5 mg DAILY MIRELA Administration Fluticasone/Umeclidinium/Vilanterol 1 puff 06/23/25 09:00 06/25/25 07:06 Fluticasone/Umeclidin/Vilanter 100-62.5-25 Mcg Ellipta INHALATION 1 puff DAILY MIRELA Administration Gabapentin 100 mg 06/22/25 21:30 06/25/25 09:16 Gabapentin 100 Mg Capsule PO 100 mg Q12HR MIRELA Administration Cefepime HCl 2 gm/ Sodium 50 mls @ 100 mls/hr 06/22/25 22:00 06/25/25 09:16 Chloride IVPB 100 mls/hr Q12H MIRELA Administration Vancomycin HCl 1,250 mg in 250 mls @ 166.667 mls/hr 06/23/25 08:00 06/25/25 09:16 Vancomycin 1,250 Mg/Ns 250 Ml IVPB 166.67 mls/hr Q24H MIRELA Administration Montelukast Sodium 10 mg 06/22/25 21:45 06/24/25 16:39 Montelukast Sodium 10 Mg Tablet PO 10 mg QPM MIRELA Administration Multivitamins Therapeutic 1 tablet 06/23/25 09:00 06/25/25 09:15 Multivitamins Therapeutic Tab (*Bkc) PO 1 tablet DAILY MIRELA Administration Ondansetron HCl 4 mg 06/22/25 14:27 Ondansetron Inj 4 Mg/2 Ml Vial IV PUSH Q4H PRN Nausea Oxybutynin Chloride 5 mg 06/22/25 21:45 06/25/25 09:15 Oxybutynin Chloride 5 Mg Tablet PO 5 mg BID MIRELA Administration Oxycodone HCl 5 mg 06/22/25 21:35 Oxycodone Hcl (*Crx) 5 Mg Tab Ir PO Q8H PRN pain (scale score 7-10) Perflutren Lipid Microsphere 0 ml 06/22/25 17:53 Perflutren Lipid Microspheres 1.5 Ml Vial Diluted To 10 Ml Total Volume IV PUSH 06/25/25 17:53 ONCE PRN adequate visualization Protocol Senna/Docusate Sodium 1 tab 06/23/25 09:00 06/25/25 09:15 Senna/Docusate Sodium Tablet PO 1 tab DAILY MIRELA Administration Sodium Chloride 10 ml 06/22/25 14:00 06/25/25 04:43 Central Line Flush IV PUSH 10 ml Q8HR MIRELA Administration Sodium Chloride 10 ml 06/22/25 11:13 Central Line Flush IV PUSH PRN PRN with TPN bag changes Sodium Chloride 20 ml 06/22/25 11:13 Central Line Flush IV PUSH PRN PRN after blood draws Radiology Results: ITS Impressions Chest X-Ray 06/22/25 10:44 IMPRESSION: 1. No acute cardiopulmonary findings given portable technique. 2. Right PICC catheter tip lower SVC. Head/Neck CTA 06/22/25 13:05 IMPRESSION: No critical stenosis or occlusion seen. 2. 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 Fusiform aneurysm could potentially have a similar appearance. Milder similar changes in the right supraclinoid carotid artery. No acute complication. 3. Four vessel left-sided arch with dominant right vertebral artery. Brain MRI 06/23/25 12:32 IMPRESSION: 1. No acute intracranial process or abnormally enhancing brain lesions. 2. 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 3. Age-related changes including mild diffuse volume loss and moderate scattered pontine and periventricular predominant cerebral white matter T2 hyperintensity consistent with chronic small vessel ischemic disease. Labs Labs: Laboratory Results - last 24 hr 06/25/25 06/25/25 04:41 09:38 WBC 6.6 RBC 3.89 L Hgb 11.5 L Hct 36.1 L MCV 92.8 MCH 29.6 MCHC 31.9 L RDW 14.5 Plt Count 92 L MPV 11.6 H % Immature Plt Fraction 5.9 Sodium 139 Potassium 3.0 L Chloride 105 Carbon Dioxide 22 Anion Gap 12 BUN 20 H Creatinine 0.96 0.97 Estim Creat Clear Calc Not Reportable Not Reportable Estimated GFR 56 L 55 L Glucose 187 H Calcium 8.8 Magnesium 2.0 Quality VTE Prophylaxis VTE prophylaxis: mechanical ordered
[2025-06-25] MEDS: ACETAMINOPHEN 325 MG TABLET 650 MG PO (12:59)
--- NOTE | 2025-06-25 15:44 | WPDNEUROPN ---
Progress Note: A&P Assessment and Plan (1) Expressive aphasia: Code(s): R47.01 - Aphasia Status: Acute (2) Dementia: Code(s): F03.90 - Unspecified dementia, unspecified severity, without behavioral disturbance, psychotic disturbance, mood disturbance, and anxiety Status: Acute (3) Thrombocytopenia: Code(s): D69.6 - Thrombocytopenia, unspecified Status: Acute Plan The patient may have degenerative dementia and possibly component of vascular dementia given her age and stage of life. I have explained the findings to the patient and family members. Since the patient has been under care of a neurologist in [facility] the option will be up to them to follow up over there. I have given them my office phone number in case if they wish to pursue further treatment. I will go ahead and put her on Namenda XR 7 mg a day the or other cholinergic drugs such as Aricept or 9 May be added however they could have some negative side effects on the cardiac rhythm and hence it will be safe to start her on Namenda for now. The dose will need to be escalated gradually to 28 mg over the course of next 3-4 weeks time. She will require some follow-up. The family wishes to do a biomarker testing for dementia Alzheimer's type this can be arranged. I noted that she is on Plavix 75 mg a day. Her platelet count is 91 K which may require some further evaluation. Subjective Date/time seen: 06/25/25 15:44 Interval history: the patient 79-year-old with history of difficulty speech and memory loss. Difficulty speech started recently which should raise the possibility of a new stroke. The have not been any significant change in her speech. Family noted that she sometimes is not able to do things with her hand that she normally would have. She did undergo an MRI of the brain which did not show any significant abnormality. However moderate white matter changes were noted. Last LDL was 88. Her B12 and vitamin-D and TSH were within normal range. The supraclinoid portion of the left internal carotid artery has shown an abnormality which has been discussed. No additional new symptoms reported. I spoke to the family members last night over the phone at the request of the nurse and explained to them about the findings of MRI and possible treatment Options for memory loss. Review of Systems Review of Systems: All systems reviewed & are unremarkable except as noted in HPI and below Exam Narrative: Fully conscious alert, she has occasional difficulty finding words. Mental status examination is similar to previous evaluation. She does seem to understand given commands fairly well but sometimes while talking she suddenly stops and cannot special cell. no motor weakness in upper lower limbs. No involuntary movements are seen. Objective Data Vital Signs Vital Signs: Vital Signs - 24 hr 06/24/25 16:00 06/24/25 20:00 06/24/25 20:00 Temperature Pulse Rate 74 70 Respiratory Rate Blood Pressure Pulse Oximetry Oxygen Delivery Room Air 06/24/25 22:00 06/25/25 00:00 06/25/25 04:00 Temperature 98.0 F Pulse Rate 80 73 84 Respiratory Rate 18 Blood Pressure 169/87 H Pulse Oximetry 94 Oxygen Delivery 06/25/25 05:59 06/25/25 08:00 06/25/25 08:00 Temperature 97.7 F Pulse Rate 77 80 Respiratory Rate 18 Blood Pressure 158/81 H Pulse Oximetry 94 Oxygen Delivery Room Air 06/25/25 14:00 Temperature 97.5 F L Pulse Rate 85 Respiratory Rate 16 Blood Pressure 142/75 H Pulse Oximetry 94 Oxygen Delivery Intake/Output Intake/Output: Intake & Output 06/22/25 06/23/25 06/24/25 06/25/25 23:59 23:59 23:59 23:59 Intake Total 260 1092 910 540 Output Total 75 1400 950 650 Balance 185 -308 -40 -110 Meds/Results Medications: Active Medications Generic Name Dose Route Start Last Admin Trade Name Freq PRN Reason Stop Dose Admin Acetaminophen 650 mg 06/22/25 14:27 06/25/25 12:59 Acetaminophen 325 Mg Tablet PO 650 mg Q4H PRN Administration Mild Pain (1-3) or Fever Alteplase, Recombinant 2 mg 06/22/25 11:34 06/22/25 12:05 Alteplase 2 Mg Vial (Cathflo) IV PUSH 2 mg ONCE PRN Administration Line Occlusion Alteplase, Recombinant 2 mg 06/22/25 11:37 Alteplase 2 Mg Vial (Cathflo) IV PUSH ONCE PRN Line Occlusion Clopidogrel Bisulfate 75 mg 06/23/25 09:00 06/25/25 09:16 Clopidogrel Bisulfate 75 Mg Tablet PO 75 mg QAM MIRELA Administration Diltiazem HCl 360 mg 06/23/25 09:00 06/25/25 09:15 Diltiazem Hcl Cd 180 Mg Cap.24hr PO 360 mg DAILY MIRELA Administration Escitalopram Oxalate 5 mg 06/23/25 09:00 06/25/25 09:16 Escitalopram Oxalate 5 Mg Tablet PO 5 mg DAILY MIRELA Administration Fluticasone/Umeclidinium/Vilanterol 1 puff 06/23/25 09:00 06/25/25 07:06 Fluticasone/Umeclidin/Vilanter 100-62.5-25 Mcg Ellipta INHALATION 1 puff DAILY MIRELA Administration Gabapentin 100 mg 06/22/25 21:30 06/25/25 09:16 Gabapentin 100 Mg Capsule PO 100 mg Q12HR MIRELA Administration Cefepime HCl 2 gm/ Sodium 50 mls @ 100 mls/hr 06/22/25 22:00 06/25/25 09:46 Chloride IVPB Infused Q12H MIRELA Infusion Vancomycin HCl 1,250 mg in 250 mls @ 166.667 mls/hr 06/23/25 08:00 06/25/25 10:46 Vancomycin 1,250 Mg/Ns 250 Ml IVPB Infused Q24H MIRELA Infusion Montelukast Sodium 10 mg 06/22/25 21:45 06/24/25 16:39 Montelukast Sodium 10 Mg Tablet PO 10 mg QPM MIRELA Administration Multivitamins Therapeutic 1 tablet 06/23/25 09:00 06/25/25 09:15 Multivitamins Therapeutic Tab (*Bkc) PO 1 tablet DAILY IMRELA Administration Ondansetron HCl 4 mg 06/22/25 14:27 Ondansetron Inj 4 Mg/2 Ml Vial IV PUSH Q4H PRN Nausea Oxybutynin Chloride 5 mg 06/22/25 21:45 06/25/25 09:15 Oxybutynin Chloride 5 Mg Tablet PO 5 mg BID MIRELA Administration Oxycodone HCl 5 mg 06/22/25 21:35 Oxycodone Hcl (*Crx) 5 Mg Tab Ir PO Q8H PRN pain (scale score 7-10) Perflutren Lipid Microsphere 0 ml 06/22/25 17:53 Perflutren Lipid Microspheres 1.5 Ml Vial Diluted To 10 Ml Total Volume IV PUSH 06/25/25 17:53 ONCE PRN adequate visualization Protocol Senna/Docusate Sodium 1 tab 06/23/25 09:00 06/25/25 09:15 Senna/Docusate Sodium Tablet PO 1 tab DAILY MIRELA Administration Sodium Chloride 10 ml 06/22/25 14:00 06/25/25 13:00 Central Line Flush IV PUSH 10 ml Q8HR MIRELA Administration Sodium Chloride 10 ml 06/22/25 11:13 Central Line Flush IV PUSH PRN PRN with TPN bag changes Sodium Chloride 20 ml 06/22/25 11:13 Central Line Flush IV PUSH PRN PRN after blood draws Radiology Results: ITS Impressions Chest X-Ray 06/22/25 10:44 IMPRESSION: 1. No acute cardiopulmonary findings given portable technique. 2. Right PICC catheter tip lower SVC. Head/Neck CTA 06/22/25 13:05 IMPRESSION: No critical stenosis or occlusion seen. 2. 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 Fusiform aneurysm could potentially have a similar appearance. Milder similar changes in the right supraclinoid carotid artery. No acute complication. 3. Four vessel left-sided arch with dominant right vertebral artery. Brain MRI 06/23/25 12:32 IMPRESSION: 1. No acute intracranial process or abnormally enhancing brain lesions. 2. 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 3. Age-related changes including mild diffuse volume loss and moderate scattered pontine and periventricular predominant cerebral white matter T2 hyperintensity consistent with chronic small vessel ischemic disease. Labs Labs: Laboratory Results - last 24 hr 06/25/25 06/25/25 04:41 09:38 WBC 6.6 RBC 3.89 L Hgb 11.5 L Hct 36.1 L MCV 92.8 MCH 29.6 MCHC 31.9 L RDW 14.5 Plt Count 92 L MPV 11.6 H % Immature Plt Fraction 5.9 Sodium 139 Potassium 3.0 L Chloride 105 Carbon Dioxide 22 Anion Gap 12 BUN 20 H Creatinine 0.96 0.97 Estim Creat Clear Calc Not Reportable Not Reportable Estimated GFR 56 L 55 L Glucose 187 H Calcium 8.8 Magnesium 2.0 Imaging Attestation: I personally reviewed and interpreted this imaging study as follows: ( MRI of the brain) My impression: white matter changes were seen on both sides which appear of moderate severity. no new infarction were noted. Radiologist's impression: Same
[2025-06-25] MEDS: MONTELUKAST SODIUM 10 MG TABLET PO (18:32)
[2025-06-26] VITALS (12 sets, daily range): BP systolic 146–159; BP diastolic 69–79; PULSE 81–100; RESP 16–18; TEMP 36.6–37.7; O2SAT 93–96
[2025-06-26] MEDS: CENTRAL LINE FLUSH 10 ML IV PUSH ×3 (04:53→20:59)
[2025-06-26 05:03] LABS: Hematocrit 37.3 % (37.0-47.0); Hemoglobin 12.0 g/dL (12.0-15.0); Immature Platelet Fraction Pct 5.7 % (0.9-11.2); Mean Corpuscular HGB Conc 32.2 g/dl (32-36); Mean Corpuscular Hemoglobin 29.7 pg (26-34); Mean Corpuscular Volume 92.3 fl (80-100); Platelet Count Result 90 k/mm3 (150-375); Red Blood Count 4.04 M/mm3 (4.2-5.4); White Blood Count 10.7 K/mm3 (4.5-10.0)
[2025-06-26 05:17] LABS: Anion Gap 8 mmol/L (4-12); Blood Urea Nitrogen 22 mg/dL (7-17); Calcium 8.8 mg/dL (8.4-10.2); Carbon Dioxide 24 mmol/L (22-30); Chloride 106 mmol/L (98-107); Estimated Glomerular Filt Rate 52; Glucose 128 mg/dL (65-110); Magnesium 2.1 mg/dL (1.6-2.3); Potassium 3.4 mmol/L (3.4-5.0); Sodium 138 mmol/L (137-145)
[2025-06-26] MEDS: dilTIAZem HCL CD 180 MG CAP.24HR 360 MG PO (08:18)
[2025-06-26] MEDS: POTASSIUM CHLORIDE 20 MEQ PACKET (FOR LIQUID) 40 MEQ PO (08:18)
[2025-06-26] MEDS: ESCITALOPRAM OXALATE 5 MG TABLET PO (08:18)
[2025-06-26] MEDS: GABAPENTIN 100 MG CAPSULE PO ×2 (08:18→20:55)
[2025-06-26] MEDS: SENNA/DOCUSATE SODIUM TABLET 1 TAB PO (08:18)
[2025-06-26] MEDS: MULTIVITAMINS THERAPEUTIC TAB (*BKC) 1 TABLET PO (08:18)
[2025-06-26] MEDS: CLOPIDOGREL BISULFATE 75 MG TABLET PO (08:18)
[2025-06-26] MEDS: FLUTICASONE/UMECLIDIN/VILANTER 100-62.5-25 MCG ELLIPTA 1 PUFF INHALATION (08:50)
[2025-06-26] MEDS: ACETAMINOPHEN 325 MG TABLET 650 MG PO ×2 (09:15→21:30)
[2025-06-26] MEDS: FUROSEMIDE INJ 40 MG/4 ML VIAL 20 MG IV PUSH (10:55)
[2025-06-26] MEDS: VANCOMYCIN 1,250 MG/NS 250 ML 1,250 MG/250 ML BAG 166 MG IVPB (10:55)
--- NOTE | 2025-06-26 11:01 | P.PNIM_ITS ---
Progress Note: A&P Assessment and Plan (1) Expressive aphasia: Code(s): R47.01 - Aphasia Status: Acute Assessment and Plan: Patient with history of AFib and no AC complains of expressive aphasia. Family and patient states symptoms started on 06/18. Chest x-ray with no acute cardiopulmonary findings, PICC line in place and okay to use. Head neck CTA with no critical stenosis or occlusion seen. Dilation of left supraclinoid carotid artery up to 8 mm likely associated with dolichoectasia-fusiform aneurysm could potentially have similar appearance. Milder similar changes in the right supraclinoid carotid artery. Four-vessel left-sided arch with dominant right vertebral artery. Low suspicion for cefepime neurotoxicity due to normal renal function. - admission for observation and telemetry - not candidate for thrombolytics due to timeframe - neurology consulted - brain MRI w/wo ordered - echo w/Bubble ordered - neuro checks Q4 - heart healthy diet - speech eval - monitor daily labs, lipid panel, A1C -ambulate with assistance -triglycerides 96, cholesterol 167, LDL cholesterol direct 88, HDL direct 38 - start Plavix 75 mg PO -aspirin 324 mg given in ED--> holding in setting of thrombocytopenia - consider 30 day event monitoring at discharge (2) Other acute osteomyelitis, right ankle and foot: Code(s): M86.171 - Other acute osteomyelitis, right ankle and foot Status: Chronic Assessment and Plan: Patient fell and broke ankle which was repaired with hardware. The hardware ED initially became infected and progressed to osteomyelitis, requiring removal. Finishing IV vancomycin and cefepime on 07/06. -PICC line in place from outside facility. Imaging shows it is in place. -continue IV vanc per pharmacy dosing and cefepime Plan 79 y/o female presented with expressive aphasia, and symptoms were persisting upon arrival, MRI of brain showed no acute intracranial process or abnormally enhancing brain lesions. patient echo did not show any shunt to have cause of stroke, patient was seen the neurologist and suspect patient has mild expressive aphasia, will benefit with speech therapist, patient is started on aspirin and plavix will have speech and PT/OT work with patient. on 06/24 patient speech had improved compared when she arrived, however today patient speech is again slurred, possible may be some neuro toxicity symptoms from her Cefepime, patient is taking for OM of her ankle, will call patient ID Dr. Tian for any recommendation, patient family is present in the room, patient will benefit going to rehab before going home. patient with on and off speech and weakness in upper extremities and her MRI is negative for any acute injury, suspect most likely her symptoms are stemming from neurotoxicity due to Cefepime, I called Dr. Tian her ID, and discussed recommended to stop Cefepime and continue vancomycin, today patient lungs sounds have crackles and patient appears edematous, will give IV Lasix and monitor. I will have PT/OT work with the patient and further recommendation to follow. Diet: Regular GI prophylaxis: NA DVT prophylaxis: SCDs lines/drains: PIV Fluids: NA Code status: Full Subjective Date/time seen: 06/26/25 11:01 Interval history: Expressive aphasia H&P-Narrative: 79-year-old female with past medical history of COPD, AFib, renal cancer status post left nephrectomy presents to the ED from [facility] on 06/22/2025 with complaints of expressive aphasia. Family and patient states symptoms started on 06/18 with not feeling right. Staff at the facility report patient had elevated ?vanc levels? and has had expressive aphasia since yesterday, if not since the weekend. They are unsure of the date of the vanc trough results. Patient is A&Ox4. Denies headache, vision changes, recent falls. Patient has noticeable expressive aphasia but is able to get the correct word out if given time. Sons are at bedside. Patient is currently at [facility] while receiving her antibiotics and for rehab. The plan is for her to move into an assisted living facility once she completes rehab. Initial vital signs 159/74, HR 74, respirations 20, afebrile and 98% on room air. Labs reveal normocytic anemia and thrombocytopenia which have both been documented in the past. BUN 21, creatinine 0.99, GFR 54. Troponin 0.012. UA with 2+ protein. Chest x-ray with no acute cardiopulmonary findings, right PICC catheter tip lower SVC. Head neck CTA with no critical stenosis or occlusion seen. Dilation of left supraclinoid carotid artery up to 8 mm likely associated with dolichoectasia- fusiform aneurysm could potentially have similar appearance. Milder similar changes in the right supraclinoid carotid artery. Four-vessel left-sided arch with dominant right vertebral artery. 79 y/o female presented with expressive aphasia, and symptoms were persisting upon arrival, MRI of brain showed no acute intracranial process or abnormally enhancing brain lesions. patient echo did not show any shunt to have cause of stroke, patient was seen the neurologist and suspect patient has mild expressive aphasia, will benefit with speech therapist, patient is started on aspirin and plavix will have speech and PT/OT work with patient. on 06/24 patient speech had improved compared when she arrived, however today patient speech is again slurred, possible may be some neuro toxicity symptoms from her Cefepime, patient is taking for OM of her ankle, will call patient ID Dr. Tian for any recommendation, patient family is present in the room, patient will benefit going to rehab before going home. patient with on and off speech and weakness in upper extremities and her MRI is negative for any acute injury, suspect most likely her symptoms are stemming from neurotoxicity due to Cefepime, I called Dr. Tian her ID, and discussed recommended to stop Cefepime and continue vancomycin, today patient lungs sounds have crackles and patient appears edematous, will give IV Lasix and monitor. I will have PT/OT work with the patient and further recommendation to follow. Review of Systems Review of Systems: All systems reviewed & are unremarkable except as noted in HPI and below Exam Narrative: Patient is comfortable, NAD HEENT: eyes are clear and none icteric LUNGS:CTA HEART: RR S1S2 ABD: BS+, Soft and nontender Lower extremities: no edema SKIN: nonjaundiced Neuro: grossly intact. Expressive aphasia Objective Data Vital Signs Vital Signs: Vital Signs - 24 hr 06/25/25 14:00 06/25/25 16:00 06/25/25 20:00 Temperature 36.4 C L Pulse Rate 85 81 80 Respiratory Rate 16 Blood Pressure 142/75 H Pulse Oximetry 94 Oxygen Delivery 06/25/25 20:25 06/25/25 22:00 06/26/25 00:00 Temperature 37.1 C Pulse Rate 79 87 Respiratory Rate 18 Blood Pressure 178/69 H Pulse Oximetry 100 Oxygen Delivery Room Air 06/26/25 01:55 06/26/25 04:00 06/26/25 06:00 Temperature 36.6 C Pulse Rate 92 81 Respiratory Rate 18 Blood Pressure 146/78 H Pulse Oximetry 95 96 Oxygen Delivery Room Air 06/26/25 08:19 06/26/25 08:54 Temperature Pulse Rate 92 Respiratory Rate 16 Blood Pressure Pulse Oximetry Oxygen Delivery Room Air Intake/Output Intake/Output: Intake & Output 06/23/25 06/24/25 06/25/25 06/26/25 23:59 23:59 23:59 23:59 Intake Total 1092 910 660 240 Output Total 1400 950 650 550 Balance -308 -40 10 -310 Meds/Results Medications: Active Medications Generic Name Dose Route Start Last Admin Trade Name Freq PRN Reason Stop Dose Admin Acetaminophen 650 mg 06/22/25 14:27 06/26/25 09:15 Acetaminophen 325 Mg Tablet PO 650 mg Q4H PRN Administration Mild Pain (1-3) or Fever Alteplase, Recombinant 2 mg 06/22/25 11:34 06/22/25 12:05 Alteplase 2 Mg Vial (Cathflo) IV PUSH 2 mg ONCE PRN Administration Line Occlusion Alteplase, Recombinant 2 mg 06/22/25 11:37 Alteplase 2 Mg Vial (Cathflo) IV PUSH ONCE PRN Line Occlusion Clopidogrel Bisulfate 75 mg 06/23/25 09:00 06/26/25 08:18 Clopidogrel Bisulfate 75 Mg Tablet PO 75 mg QAM MIRELA Administration Diltiazem HCl 360 mg 06/23/25 09:00 06/26/25 08:18 Diltiazem Hcl Cd 180 Mg Cap.24hr PO 360 mg DAILY MIRELA Administration Escitalopram Oxalate 5 mg 06/23/25 09:00 06/26/25 08:18 Escitalopram Oxalate 5 Mg Tablet PO 5 mg DAILY MIRELA Administration Fluticasone/Umeclidinium/Vilanterol 1 puff 06/23/25 09:00 06/26/25 08:50 Fluticasone/Umeclidin/Vilanter 100-62.5-25 Mcg Ellipta INHALATION 1 puff DAILY MIRELA Administration Gabapentin 100 mg 06/22/25 21:30 06/26/25 08:18 Gabapentin 100 Mg Capsule PO 100 mg Q12HR MIRELA Administration Vancomycin HCl 1,250 mg in 250 mls @ 166.667 mls/hr 06/23/25 08:00 06/26/25 10:55 Vancomycin 1,250 Mg/Ns 250 Ml IVPB 166 mls/hr Q24H MIRELA Administration Memantine 7 mg 06/26/25 09:00 06/26/25 08:19 Memantine Hcl Xr 28 Mg Cap PO Not Given DAILY MIRELA Montelukast Sodium 10 mg 06/22/25 21:45 06/25/25 18:32 Montelukast Sodium 10 Mg Tablet PO 10 mg QPM MIRELA Administration Multivitamins Therapeutic 1 tablet 06/23/25 09:00 06/26/25 08:18 Multivitamins Therapeutic Tab (*Bkc) PO 1 tablet DAILY MIRELA Administration Ondansetron HCl 4 mg 06/22/25 14:27 Ondansetron Inj 4 Mg/2 Ml Vial IV PUSH Q4H PRN Nausea Oxybutynin Chloride 5 mg 06/22/25 21:45 06/26/25 08:18 Oxybutynin Chloride 5 Mg Tablet PO 5 mg BID MIRELA Administration Oxycodone HCl 5 mg 06/22/25 21:35 Oxycodone Hcl (*Crx) 5 Mg Tab Ir PO Q8H PRN pain (scale score 7-10) Senna/Docusate Sodium 1 tab 06/23/25 09:00 06/26/25 08:18 Senna/Docusate Sodium Tablet PO 1 tab DAILY MIRELA Administration Sodium Chloride 10 ml 06/22/25 14:00 06/26/25 04:53 Central Line Flush IV PUSH 10 ml Q8HR MIRELA Administration Sodium Chloride 10 ml 06/22/25 11:13 Central Line Flush IV PUSH PRN PRN with TPN bag changes Sodium Chloride 20 ml 06/22/25 11:13 Central Line Flush IV PUSH PRN PRN after blood draws Radiology Results: ITS Impressions Head/Neck CTA 06/22/25 13:05 IMPRESSION: No critical stenosis or occlusion seen. 2. 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 Fusiform aneurysm could potentially have a similar appearance. Milder similar changes in the right supraclinoid carotid artery. No acute complication. 3. Four vessel left-sided arch with dominant right vertebral artery. Brain MRI 06/23/25 12:32 IMPRESSION: 1. No acute intracranial process or abnormally enhancing brain lesions. 2. 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 3. Age-related changes including mild diffuse volume loss and moderate scattered pontine and periventricular predominant cerebral white matter T2 hyperintensity consistent with chronic small vessel ischemic disease. Chest X-Ray 06/26/25 10:32 IMPRESSION: 1. Decreased lung volumes with opacities in bilateral lower lung zones, left greater than right which could represent atelectasis and/or pneumonia. Labs Labs: Laboratory Results - last 24 hr 06/26/25 04:52 WBC 10.7 H RBC 4.04 L Hgb 12.0 Hct 37.3 MCV 92.3 MCH 29.7 MCHC 32.2 RDW 14.3 Plt Count 90 L MPV 12.1 H % Immature Plt Fraction 5.7 Sodium 138 Potassium 3.4 Chloride 106 Carbon Dioxide 24 Anion Gap 8 BUN 22 H Creatinine 1.02 H Estim Creat Clear Calc Not Reportable Estimated GFR 52 L Glucose 128 H Calcium 8.8 Magnesium 2.1 Vancomycin Trough 19.3 Quality VTE Prophylaxis VTE prophylaxis: mechanical ordered
--- NOTE | 2025-06-26 11:07 | PCOTNOTE ---
The patient treatment was not able to be completed. Not appropriate at this time. RN reports they will check for potential DVT and she is very painful. Will plan to continue treatment per plan of care.
[2025-06-26] MEDS: cefTRIAXone 2 GM in SODIUM CHLORIDE 0.9% IV 100 ML 200 ML IVPB (18:12)
[2025-06-26] MEDS: MONTELUKAST SODIUM 10 MG TABLET PO (18:12)
[2025-06-26] MEDS: DOXYCYCLINE HYCLATE 100 MG TABLET PO (18:12)
[2025-06-27] VITALS (11 sets, daily range): BP systolic 117–154; BP diastolic 51–74; PULSE 62–103; RESP 13–20; TEMP 36.3–37; O2SAT 93–98
[2025-06-27 04:37] LABS: Hematocrit 38.2 % (37.0-47.0); Hemoglobin 12.2 g/dL (12.0-15.0); Immature Platelet Fraction Pct 7.5 % (0.9-11.2); Mean Corpuscular HGB Conc 31.9 g/dl (32-36); Mean Corpuscular Hemoglobin 29.5 pg (26-34); Mean Corpuscular Volume 92.5 fl (80-100); Platelet Count Result 88 k/mm3 (150-375); Red Blood Count 4.13 M/mm3 (4.2-5.4); White Blood Count 12.1 K/mm3 (4.5-10.0)
[2025-06-27 04:44] LABS: Anion Gap 8 mmol/L (4-12); Blood Urea Nitrogen 30 mg/dL (7-17); Calcium 9.1 mg/dL (8.4-10.2); Carbon Dioxide 27 mmol/L (22-30); Chloride 105 mmol/L (98-107); Estimated Glomerular Filt Rate 36; Glucose 109 mg/dL (65-110); Magnesium 2.1 mg/dL (1.6-2.3); Potassium 3.2 mmol/L (3.4-5.0); Sodium 140 mmol/L (137-145)
[2025-06-27] MEDS: CENTRAL LINE FLUSH 10 ML IV PUSH ×3 (04:56→21:39)
[2025-06-27] MEDS: DOXYCYCLINE HYCLATE 100 MG TABLET PO ×2 (06:10→18:09)
[2025-06-27] MEDS: FLUTICASONE/UMECLIDIN/VILANTER 100-62.5-25 MCG ELLIPTA 1 PUFF INHALATION (08:15)
[2025-06-27] MEDS: GABAPENTIN 100 MG CAPSULE PO ×2 (09:58→20:09)
[2025-06-27] MEDS: CLOPIDOGREL BISULFATE 75 MG TABLET PO (09:58)
[2025-06-27] MEDS: ESCITALOPRAM OXALATE 5 MG TABLET PO (09:58)
[2025-06-27] MEDS: MULTIVITAMINS THERAPEUTIC TAB (*BKC) 1 TABLET PO (09:58)
[2025-06-27] MEDS: POTASSIUM CHLORIDE 20 MEQ PACKET (FOR LIQUID) 40 MEQ PO (09:58)
[2025-06-27] MEDS: dilTIAZem HCL CD 180 MG CAP.24HR 360 MG PO (09:58)
[2025-06-27] MEDS: SENNA/DOCUSATE SODIUM TABLET 1 TAB PO (09:58)
[2025-06-27] MEDS: MEMANTINE HCL XR 7 MG CAP PO (09:59)
--- NOTE | 2025-06-27 13:08 | PC.NURSE ---
On 06/27/25, the student, [Jordan Kaufman], provided care and completed [facility] documentation on this patient. I have reviewed the student's documentation and agree with the findings.
--- NOTE | 2025-06-27 13:26 | P.PNIM_ITS ---
Progress Note: A&P Assessment and Plan (1) Expressive aphasia: Code(s): R47.01 - Aphasia Status: Acute Assessment and Plan: Patient with history of AFib and no AC complains of expressive aphasia. Family and patient states symptoms started on 06/18. Chest x-ray with no acute cardiopulmonary findings, PICC line in place and okay to use. Head neck CTA with no critical stenosis or occlusion seen. Dilation of left supraclinoid carotid artery up to 8 mm likely associated with dolichoectasia-fusiform aneurysm could potentially have similar appearance. Milder similar changes in the right supraclinoid carotid artery. Four-vessel left-sided arch with dominant right vertebral artery. Low suspicion for cefepime neurotoxicity due to normal renal function. - admission for observation and telemetry - not candidate for thrombolytics due to timeframe - neurology consulted - brain MRI w/wo ordered - echo w/Bubble ordered - neuro checks Q4 - heart healthy diet - speech eval - monitor daily labs, lipid panel, A1C -ambulate with assistance -triglycerides 96, cholesterol 167, LDL cholesterol direct 88, HDL direct 38 - start Plavix 75 mg PO -aspirin 324 mg given in ED--> holding in setting of thrombocytopenia - consider 30 day event monitoring at discharge (2) Other acute osteomyelitis, right ankle and foot: Code(s): M86.171 - Other acute osteomyelitis, right ankle and foot Status: Chronic Assessment and Plan: Patient fell and broke ankle which was repaired with hardware. The hardware ED initially became infected and progressed to osteomyelitis, requiring removal. Finishing IV vancomycin and cefepime on 07/06. -PICC line in place from outside facility. Imaging shows it is in place. -continue IV vanc per pharmacy dosing and cefepime Plan patient with on and off speech and weakness in upper extremities and her MRI is negative for any acute injury, suspect most likely her symptoms are stemming from neurotoxicity due to Cefepime, on 06/[address] Tian her ID, and discussed, he recommended to stop Cefepime and continue vancomycin, patient lungs sounds have crackles and patient appears edematous, will give IV Lasix and monitor. chest x-ray concerning for pneumonia, started patient on ceftriaxone and doxycycline, will continue Vancomycin for OM, patient is working with PT/OT and further recommendation to follow. patient with on and off speech and weakness in upper extremities and her MRI is negative for any acute injury, suspect most likely her symptoms are stemming from neurotoxicity due to Cefepime, I called Dr. Tian her ID, and discussed recommended to stop Cefepime and continue vancomycin, today patient lungs sounds have crackles and patient appears edematous, will give IV Lasix and monitor. I will have PT/OT work with the patient and further recommendation to follow. Diet: Regular GI prophylaxis: NA DVT prophylaxis: SCDs lines/drains: PIV Fluids: NA Code status: Full Subjective Date/time seen: 06/27/25 13:26 Interval history: Expressive aphasia H&P-Narrative: 79-year-old female with past medical history of COPD, AFib, renal cancer status post left nephrectomy presents to the ED from [facility] on 06/22/2025 with complaints of expressive aphasia. Family and patient states symptoms started on 06/18 with not feeling right. Staff at the facility report patient had elevated ?vanc levels? and has had expressive aphasia since yesterday, if not since the weekend. They are unsure of the date of the vanc trough results. Patient is A&Ox4. Denies headache, vision changes, recent falls. Patient has noticeable expressive aphasia but is able to get the correct word out if given time. Sons are at bedside. Patient is currently at [facility] while receiving her antibiotics and for rehab. The plan is for her to move into an assisted living facility once she completes rehab. Initial vital signs 159/74, HR 74, respirations 20, afebrile and 98% on room air. Labs reveal normocytic anemia and thrombocytopenia which have both been documented in the past. BUN 21, creatinine 0.99, GFR 54. Troponin 0.012. UA with 2+ protein. Chest x-ray with no acute cardiopulmonary findings, right PICC catheter tip lower SVC. Head neck CTA with no critical stenosis or occlusion seen. Dilation of left supraclinoid carotid artery up to 8 mm likely associated with dolichoectasia- fusiform aneurysm could potentially have similar appearance. Milder similar bijal nges in the right supraclinoid carotid artery. Four-vessel left-sided arch with dominant right vertebral artery. 79 y/o female presented with expressive aphasia, and symptoms were persisting upon arrival, MRI of brain showed no acute intracranial process or abnormally enhancing brain lesions. patient echo did not show any shunt to have cause of stroke, patient was seen the neurologist and suspect patient has mild expressive aphasia, will benefit with speech therapist, patient is started on aspirin and plavix will have speech and PT/OT work with patient. on 06/24 patient speech had improved compared when she arrived, however today patient speech is again slurred, possible may be some neuro toxicity symptoms from her Cefepime, patient is taking for OM of her ankle, will call patient ID Dr. Tian for any recommendation, patient family is present in the room, patient will benefit going to rehab before going home. patient with on and off speech and weakness in upper extremities and her MRI is negative for any acute injury, suspect most likely her symptoms are stemming from neurotoxicity due to Cefepime, on 06/[address] Tian her ID, and discussed, he recommended to stop Cefepime and continue vancomycin, patient lungs sounds have crackles and patient appears edematous, will give IV Lasix and monitor. chest x-ray concerning for pneumonia, started patient on ceftriaxone and doxycycline, will continue Vancomycin for OM, patient is working with PT/OT and further recommendation to follow. Review of Systems Review of Systems: All systems reviewed & are unremarkable except as noted in HPI and below Exam Narrative: Patient is comfortable, NAD HEENT: eyes are clear and none icteric LUNGS:CTA HEART: RR S1S2 ABD: BS+, Soft and nontender Lower extremities: no edema SKIN: nonjaundiced Neuro: grossly intact. Expressive aphasia Objective Data Vital Signs Vital Signs: Vital Signs - 24 hr 06/26/25 14:00 06/26/25 16:00 06/26/25 19:22 Temperature 36.7 C 37.4 C Pulse Rate 83 86 97 Respiratory Rate 16 18 Blood Pressure 159/69 H 147/79 H Pulse Oximetry 93 94 Oxygen Delivery 06/26/25 20:00 06/26/25 21:02 06/26/25 21:30 Temperature 37.7 C H Pulse Rate 100 Respiratory Rate Blood Pressure Pulse Oximetry Oxygen Delivery Room Air 06/26/25 22:16 06/27/25 00:00 06/27/25 04:00 Temperature 37.3 C Pulse Rate 103 H 77 Respiratory Rate Blood Pressure Pulse Oximetry Oxygen Delivery 06/27/25 04:52 06/27/25 08:00 06/27/25 08:19 Temperature 36.3 C L Pulse Rate 62 74 73 Respiratory Rate 20 16 Blood Pressure 154/73 H Pulse Oximetry 96 Oxygen Delivery 06/27/25 08:19 06/27/25 10:00 06/27/25 10:09 Temperature Pulse Rate 90 Respiratory Rate Blood Pressure 135/74 Pulse Oximetry 94 Oxygen Delivery Room Air Room Air 06/27/25 12:00 Temperature Pulse Rate 69 Respiratory Rate Blood Pressure Pulse Oximetry Oxygen Delivery Intake/Output Intake/Output: Intake & Output 06/24/25 06/25/25 06/26/25 06/27/25 23:59 23:59 23:59 23:59 Intake Total 910 660 600 742 Output Total 295 483 7947 500 Balance -40 10 -1250 242 Meds/Results Medications: Active Medications Generic Name Dose Route Start Last Admin Trade Name Freq PRN Reason Stop Dose Admin Acetaminophen 650 mg 06/22/25 14:27 06/26/25 21:30 Acetaminophen 325 Mg Tablet PO 650 mg Q4H PRN Administration Mild Pain (1-3) or Fever Alteplase, Recombinant 2 mg 06/22/25 11:34 06/22/25 12:05 Alteplase 2 Mg Vial (Cathflo) IV PUSH 2 mg ONCE PRN Administration Line Occlusion Alteplase, Recombinant 2 mg 06/22/25 11:37 Alteplase 2 Mg Vial (Cathflo) IV PUSH ONCE PRN Line Occlusion Clopidogrel Bisulfate 75 mg 06/23/25 09:00 06/27/25 09:58 Clopidogrel Bisulfate 75 Mg Tablet PO 75 mg QAM MIRELA Administration Diltiazem HCl 360 mg 06/23/25 09:00 06/27/25 09:58 Diltiazem Hcl Cd 180 Mg Cap.24hr PO 360 mg DAILY MIRELA Administration Doxycycline Hyclate 100 mg 06/26/25 19:00 06/27/25 06:10 Doxycycline Hyclate 100 Mg Tablet PO 100 mg Q12H MIRELA Administration Escitalopram Oxalate 5 mg 06/23/25 09:00 06/27/25 09:58 Escitalopram Oxalate 5 Mg Tablet PO 5 mg DAILY MIRELA Administration Fluticasone/Umeclidinium/Vilanterol 1 puff 06/23/25 09:00 06/27/25 08:15 Fluticasone/Umeclidin/Vilanter 100-62.5-25 Mcg Ellipta INHALATION 1 puff DAILY MIRELA Administration Gabapentin 100 mg 06/22/25 21:30 06/27/25 09:58 Gabapentin 100 Mg Capsule PO 100 mg Q12HR MIRELA Administration Ceftriaxone Sodium 2 gm/ 100 mls @ 200 mls/hr 06/26/25 16:00 06/26/25 18:12 Sodium Chloride IVPB 200 mls/hr Q24H MIRELA Administration Memantine 7 mg 06/27/25 09:50 06/27/25 09:59 Memantine Hcl Xr 7 Mg Cap PO 7 mg DAILY MIRELA Administration Montelukast Sodium 10 mg 06/22/25 21:45 06/26/25 18:12 Montelukast Sodium 10 Mg Tablet PO 10 mg QPM MIRELA Administration Multivitamins Therapeutic 1 tablet 06/23/25 09:00 06/27/25 09:58 Multivitamins Therapeutic Tab (*Bkc) PO 1 tablet DAILY MIRELA Administration Ondansetron HCl 4 mg 06/22/25 14:27 Ondansetron Inj 4 Mg/2 Ml Vial IV PUSH Q4H PRN Nausea Oxybutynin Chloride 5 mg 06/22/25 21:45 06/27/25 09:58 Oxybutynin Chloride 5 Mg Tablet PO 5 mg BID MIRELA Administration Oxycodone HCl 5 mg 06/22/25 21:35 Oxycodone Hcl (*Crx) 5 Mg Tab Ir PO Q8H PRN pain (scale score 7-10) Senna/Docusate Sodium 1 tab 06/23/25 09:00 06/27/25 09:58 Senna/Docusate Sodium Tablet PO 1 tab DAILY MIRELA Administration Sodium Chloride 10 ml 06/22/25 14:00 06/27/25 04:56 Central Line Flush IV PUSH 10 ml Q8HR MIRELA Administration Sodium Chloride 10 ml 06/22/25 11:13 Central Line Flush IV PUSH PRN PRN with TPN bag changes Sodium Chloride 20 ml 06/22/25 11:13 Central Line Flush IV PUSH PRN PRN after blood draws Vancomycin HCl 1 each 06/27/25 09:31 Vancomycin For Acute Kidney Injury IVPB 07/06/25 23:59 PRN PRN Vancomycin Protocol Radiology Results: ITS Impressions Head/Neck CTA 06/22/25 13:05 IMPRESSION: No critical stenosis or occlusion seen. 2. 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 Fusiform aneurysm could potentially have a similar appearance. Milder similar changes in the right supraclinoid carotid artery. No acute complication. 3. Four vessel left-sided arch with dominant right vertebral artery. Brain MRI 06/23/25 12:32 IMPRESSION: 1. No acute intracranial process or abnormally enhancing brain lesions. 2. Small old lacunar infarct at the left side of the isthmus of the corpus c allosum. 3. Age-related changes including mild diffuse volume loss and moderate scattered pontine and periventricular predominant cerebral white matter T2 hyperintensity consistent with chronic small vessel ischemic disease. Chest X-Ray 06/26/25 10:32 IMPRESSION: 1. Decreased lung volumes with opacities in bilateral lower lung zones, left greater than right which could represent atelectasis and/or pneumonia. Venous Doppler Study 06/26/25 12:52 IMPRESSION: No DVT in either right or left upper cavity. Labs Labs: Laboratory Results - last 24 hr 06/27/25 06/27/25 04:24 08:43 WBC 12.1 H RBC 4.13 L Hgb 12.2 Hct 38.2 MCV 92.5 MCH 29.5 MCHC 31.9 L RDW 14.5 Plt Count 88 L MPV 12.4 H % Immature Plt Fraction 7.5 Sodium 140 Potassium 3.2 L Chloride 105 Carbon Dioxide 27 Anion Gap 8 BUN 30 H Creatinine 1.41 H Estim Creat Clear Calc Not Reportable Estimated GFR 36 L Glucose 109 Calcium 9.1 Magnesium 2.1 Vancomycin Trough 21.0 H Quality VTE Prophylaxis VTE prophylaxis: mechanical ordered
[2025-06-27] MEDS: cefTRIAXone 2 GM in SODIUM CHLORIDE 0.9% IV 100 ML 200 ML IVPB (15:37)
[2025-06-27] MEDS: MONTELUKAST SODIUM 10 MG TABLET PO (18:09)
[2025-06-27] MEDS: ACETAMINOPHEN 325 MG TABLET 650 MG PO (19:23)
[2025-06-28] VITALS (9 sets, daily range): BP systolic 130–140; BP diastolic 61–77; PULSE 60–83; RESP 16–20; TEMP 36.5–36.6; O2SAT 94–97
[2025-06-28] MEDS: CENTRAL LINE FLUSH 10 ML IV PUSH ×2 (05:38→14:00)
[2025-06-28] MEDS: ALTEPLASE 2 MG VIAL (CATHFLO) IV PUSH ×2 (05:39→05:40)
[2025-06-28] MEDS: DOXYCYCLINE HYCLATE 100 MG TABLET PO ×2 (05:43→18:18)
[2025-06-28 05:52] LABS: Hematocrit 35.2 % (37.0-47.0); Hemoglobin 11.1 g/dL (12.0-15.0); Immature Platelet Fraction Pct 9.1 % (0.9-11.2); Mean Corpuscular HGB Conc 31.5 g/dl (32-36); Mean Corpuscular Hemoglobin 29.4 pg (26-34); Mean Corpuscular Volume 93.1 fl (80-100); Platelet Count Result 96 k/mm3 (150-375); Red Blood Count 3.78 M/mm3 (4.2-5.4); White Blood Count 9.9 K/mm3 (4.5-10.0)
[2025-06-28 06:05] LABS: Anion Gap 10 mmol/L (4-12); Blood Urea Nitrogen 40 mg/dL (7-17); Calcium 8.9 mg/dL (8.4-10.2); Carbon Dioxide 22 mmol/L (22-30); Chloride 103 mmol/L (98-107); Estimated Glomerular Filt Rate 29; Glucose 96 mg/dL (65-110); Magnesium 2.0 mg/dL (1.6-2.3); Potassium 3.3 mmol/L (3.4-5.0); Sodium 135 mmol/L (137-145)
[2025-06-28] MEDS: FLUTICASONE/UMECLIDIN/VILANTER 100-62.5-25 MCG ELLIPTA 1 PUFF INHALATION (07:39)
[2025-06-28] MEDS: POTASSIUM CHLORIDE 20 MEQ PACKET (FOR LIQUID) 40 MEQ PO (08:52)
[2025-06-28] MEDS: dilTIAZem HCL CD 180 MG CAP.24HR 360 MG PO (10:35)
[2025-06-28] MEDS: CLOPIDOGREL BISULFATE 75 MG TABLET PO (10:35)
[2025-06-28] MEDS: SENNA/DOCUSATE SODIUM TABLET 1 TAB PO (10:36)
[2025-06-28] MEDS: MEMANTINE HCL XR 7 MG CAP PO (10:36)
[2025-06-28] MEDS: MULTIVITAMINS THERAPEUTIC TAB (*BKC) 1 TABLET PO (10:36)
[2025-06-28] MEDS: GABAPENTIN 100 MG CAPSULE PO (10:36)
[2025-06-28] MEDS: ESCITALOPRAM OXALATE 5 MG TABLET PO (10:36)
[2025-06-28] MEDS: PANTOPRAZOLE 40 MG TABLET PO (11:53)
--- NOTE | 2025-06-28 14:29 | P.DS_ITS ---
DS: Admitting Diagnosis Discharge Date 06/28/25 Admitting Diagnosis Expressive aphasia DS: Discharge Diagnosis Discharge Diagnosis (1) Expressive aphasia: Code(s): R47.01 - Aphasia Status: Acute Assessment and Plan: Patient with history of AFib and no AC complains of expressive aphasia. Family and patient states symptoms started on 06/18. Chest x-ray with no acute cardiopulmonary findings, PICC line in place and okay to use. Head neck CTA with no critical stenosis or occlusion seen. Dilation of left supraclinoid carotid artery up to 8 mm likely associated with dolichoectasia-fusiform aneurysm could potentially have similar appearance. Milder similar changes in the right sup raclinoid carotid artery. Four-vessel left-sided arch with dominant right vertebral artery. Low suspicion for cefepime neurotoxicity due to normal renal function. - admission for observation and telemetry - not candidate for thrombolytics due to timeframe - neurology consulted - brain MRI w/wo ordered - echo w/Bubble ordered - neuro checks Q4 - heart healthy diet - speech eval - monitor daily labs, lipid panel, A1C -ambulate with assistance -triglycerides 96, cholesterol 167, LDL cholesterol direct 88, HDL direct 38 - start Plavix 75 mg PO -aspirin 324 mg given in ED--> holding in setting of thrombocytopenia - consider 30 day event monitoring at discharge (2) Other acute osteomyelitis, right ankle and foot: Code(s): M86.171 - Other acute osteomyelitis, right ankle and foot Status: Chronic Assessment and Plan: Patient fell and broke ankle which was repaired with hardware. The hardware ED initially became infected and progressed to osteomyelitis, requiring removal. Finishing IV vancomycin and cefepime on 07/06. -PICC line in place from outside facility. Imaging shows it is in place. -continue IV vanc per pharmacy dosing and cefepime Plan patient with on and off speech and weakness in upper extremities and her MRI is negative for any acute injury, suspect most likely her symptoms are stemming from neurotoxicity due to Cefepime, on 06/[address] Tian her ID, and discussed, he recommended to stop Cefepime and continue vancomycin, patient lungs sounds have crackles and patient appears edematous, will give IV Lasix and monitor. chest x-ray concerning for pneumonia, started patient on ceftriaxone and doxycycline, will continue Vancomycin for OM, patient is working with PT/OT and further recommendation to follow. patient with on and off speech and weakness in upper extremities and her MRI is negative for any acute injury, suspect most likely her symptoms are stemming from neurotoxicity due to Cefepime, I called Dr. Tian her ID, and discussed recommended to stop Cefepime and continue vancomycin, today patient lungs sounds have crackles and patient appears edematous, will give IV Lasix and monitor. I will have PT/OT work with the patient and further recommendation to follow. Diet: Regular GI prophylaxis: NA DVT prophylaxis: SCDs lines/drains: PIV Fluids: NA Code status: Full DS: Summary Hospital Course Hospital Course: patient with on and off speech and weakness in upper extremities and her MRI is negative for any acute injury, suspect most likely her symptoms are stemming from neurotoxicity due to Cefepime, on 06/[address] Tian her ID, and discussed, he recommended to stop Cefepime and continue vancomycin, patient lungs sounds have crackles and patient appears edematous, will give IV Lasix and monitor. chest x-ray concerning for pneumonia, started patient on ceftriaxone and doxycycline, will continue Vancomycin for OM, patient is working with PT/OT and further recommendation to follow. Repeat chest x-ray showed improvement in her pneumonia, patient clinical symptoms have improve and patient is stable.will discharge today to the NH. Time Spent with Patient Time attestation: Total time spent providing and/or coordinating discharge services: Exam Narrative: Patient is comfortable, NAD HEENT: eyes are clear and none icteric LUNGS:CTA HEART: RR S1S2 ABD: BS+, Soft and nontender Lower extremities: no edema SKIN: nonjaundiced Neuro: grossly intact. Expressive aphasia DS: Data Data Completed and Pending Labs on day of discharge: Labs from last 24 hours 06/28/25 05:17 WBC 9.9 RBC 3.78 L Hgb 11.1 L Hct 35.2 L MCV 93.1 MCH 29.4 MCHC 31.5 L RDW 14.4 Plt Count 96 L MPV 13.0 H % Immature Plt Fraction 9.1 Sodium 135 L Potassium 3.3 L Chloride 103 Carbon Dioxide 22 Anion Gap 10 BUN 40 H D Creatinine 1.68 H Estim Creat Clear Calc Not Reportable Estimated GFR 29 L Glucose 96 Calcium 8.9 Magnesium 2.0 Random Vancomycin 16.8 Preliminary micro results at discharge 06/22/25 12:03 Blood Culture - Preliminary Blood Discharge Plan Discharge Attending physician on discharge: Joslyn Snyder Consulting providers: Wily Jimenez; Navi Fallon; Irina Gutierrez; Michael Rain; Vladimir Ramos; Trip Lizama; Samuel Gutierrez Discharging Clinician: Joslyn Snyder Patient Disposition: NH Long-Term/Asst Living Activity: as tolerated Diet: heart healthy Discharge Instructions: Patient will complete her Vancomycin IV on July 06, patient to follow up with ELIZABETH Agrawal, and primary care provider as soon as possible. Patient Instructions: Antibiotic Form Patient Language: Japanese Stand Alone Forms: General Discharge Information Follow-up/Referrals: Brandon,MD Amber [Primary Care Provider, Unknown] Discharge Medications: New cefdinir 300 mg capsule 300 mg PO Q12H Qty: 10 0RF doxycycline hyclate 100 mg capsule 100 mg PO BID Qty: 10 0RF pantoprazole 40 mg Tablet,Delayed Release (Dr/Ec) 40 mg PO QAM Qty: 30 0RF memantine [Namenda XR] 7 mg Capsule,Sprinkle,Er 24hr 7 mg PO DAILY Qty: 30 0RF Continued diltiazem HCl 360 mg capsule,extended release 24hr 360 mg PO DAILY escitalopram oxalate 5 mg tablet 5 mg PO DAILY multivitamin Tablet 1 tablet PO DAILY ascorbic acid (vitamin C) 500 mg capsule 500 mg PO QPM acetaminophen 325 mg tablet 650 mg PO Q6H PRN (Reason: pain) L.acidoph,saliva-B.bif-S.therm [Acidophilus Probiotic Blend] 175 mg capsule 1 cap PO BID aspirin [Adult Low Dose Aspirin] 81 mg tablet,delayed release (DR/EC) 81 mg PO DAILY vitamin B complex-folic acid [B Complex 1 (with folic acid)] 0.4 mg tablet 1 tablet PO DAILY gabapentin 100 mg capsule 100 mg PO .q12hr ipratropium-albuterol 0.5 mg-3 mg(2.5 mg base)/3 mL solution for nebulization 3 ml inhalation QID PRN (Reason: cough, shortness of breath, or wheezing) lidocaine 4 % adhesive patch,medicated 1 patch topical DAILY PRN (Reason: pain) Macular Vitamin 500-5-1 mcg-mg-mg tablet 1 tablet PO QPM polyethylene glycol 3350 [Miralax] 17 gram/dose powder 17 g PO .qod montelukast 10 mg tablet 10 mg PO QPM nystatin 100,000 unit/gram cream 1 applic TOPICAL BID PRN (Reason: skin fold maceration) oxybutynin chloride 5 mg tablet 5 mg PO BID oxycodone 5 mg tablet 5 mg PO Q8H PRN (Reason: pain (scale score 7-10)) Refresh Relieva 0.5-0.9 % drops 1 drp EACH EYE TID PRN (Reason: dry eye(s)) Senna Plus 8.6-50 mg capsule 1 tab-cap PO DAILY Sore Throat (benzocaine-menth) 6-10 mg lozenge 1 chastity mucous membrane Q2H PRN (Reason: sore throat) Trelegy Ellipta 100-62.5-25 mcg blister with device 1 inh INHALATION DAILY Rx Instructions: Rinse mouth after using inhaler vancomycin 1,000 mg recon soln 1 g IV DAILY cholecalciferol (vitamin D3) [Vitamin D3] 25 mcg (1,000 unit) capsule 25 mcg PO .qod vitamin E 268 mg (400 unit) capsule 268 mg PO QPM diclofenac sodium [Arthritis Pain (diclofenac)] 1 % gel 2 g topical QID PRN (Reason: right foot/ankle pain) Rx Instructions: apply to right foot/ankle for pain Discontinued cefepime 2 gram recon soln 2 g IV Q12H Date of admission: 06/23/25 14:03 Primary Care Provider: Brandon,Amber Admitting Provider: Joslyn Snyder Attending physician on admission: Joslyn Snyder Condition: Stable
[2025-06-28] MEDS: cefTRIAXone 2 GM in SODIUM CHLORIDE 0.9% IV 100 ML 200 ML IVPB (17:05)
[2025-06-28] MEDS: MONTELUKAST SODIUM 10 MG TABLET PO (17:15)
== END 2025-06-28 20:40 | DRG 91 ==
LOC: ANHED 14:27 → ANH2MED 15:05
PROVIDERS: Nurse Practitioner Adult Health; Psychiatry & Neurology Neurology; Admitting Provider Family Medicine; Emergency Provider Student in an Organized Health Care Education/Training Program; PCP Family Medicine; Visit Provider Family Medicine
DX: R47.01 Aphasia (principal); J18.9 Pneumonia, unspecified organism; M86.171 Other acute osteomyelitis, right ankle and foot; T36.1X5A Adverse effect of cephalosporins and other beta-lactam antibiotics, initial encounter; I48.91 Unspecified atrial fibrillation; D69.6 Thrombocytopenia, unspecified; G25.0 Essential tremor; I72.0 Aneurysm of carotid artery; D64.9 Anemia, unspecified; J44.9 Chronic obstructive pulmonary disease, unspecified; Z96.652 Presence of left artificial knee joint; Z85.828 Personal history of other malignant neoplasm of skin; Z85.528 Personal history of other malignant neoplasm of kidney; Z90.49 Acquired absence of other specified parts of digestive tract; Z87.891 Personal history of nicotine dependence
CPT/HCPCS: 36415; 70496; 70498; 70553; 71045; 80048; 80053; 80061; 80202; 81001; 82306; 82565; 82607; 82746; 83036; 83605; 83735; 83921; 84443; 84484; 85025; 85027; 85055; 85610; 85730; 87040; 92507; 92523; 93005; 93306; 93970; 94640; 96375; 97110; 97161; 97166; 97530; 97535; 99285; A9270; A9577; G0378; J0692; J0696; J1938; J2997; J3373; Q9967